=== PATIENT | male | born 1945 | race American Indian/Alaskan Native ===

== ENCOUNTER 2017-02-13 10:20 | Inpatient (IN) | payer MEDICARE ==
[2017-02-13 11:30] LABS: Basophils % (Auto) 0.1 % (0.0-1.8); Eosinophils % (Auto) 1.9 % (0.0-4.3); Hemoglobin 13.3 gm/dl (11.8-15.2); Mean Corpuscular HGB Conc 33 % (32-34); Mean Corpuscular Volume 79 fl (84-94); Platelet Count 294 K/mm3 (140-440); Red Blood Count 5.18 M/mm3 (3.65-5.03); Red Cell Distribution Width 15.1 % (13.2-15.2); White Blood Count 13.3 K/mm3 (4.5-11.0)
[2017-02-13 11:42] LABS: Mean Corpuscular Hemoglobin 26 pg (28-32)
[2017-02-13 11:44] LABS: Albumin 3.5 g/dL (3.9-5); Albumin/Globulin Ratio 0.8 %; Bilirubin,Total 0.2 mg/dL (0.1-1.2); Chloride 91.3 mmol/L (98-107); Potassium 3.5 mmol/L (3.6-5.0); Total Protein 8.1 g/dL (6.3-8.2)
--- NOTE | 2017-02-13 12:36 | Emergency Department Report ---
HPI - General Chief Complaint: Abdominal Pain Time Seen by Provider: 02/13/17 12:18 - HPI HPI: Room 8 The patient is a 69-year-old male presenting with chief complaint of abdominal pain. The patient states he's had a right sided lower abdominal pain constantly for the past 5 days. Patient describes pain as a sore and aching pain. Patient states he is only urinated 3 or 4 times in the past 4 days. The patient states he does not have the urge to urinate. Patient admits to occasional nausea and vomiting. Patient denies dysuria whenever he does urinate. Location: Abdomen Duration: 5 days Quality: Aching/soreness Severity: Moderate Modifying factors: [see above] Context: [see above] Mode of transportation: [not driving] ED Past Medical Hx - Past Medical History Previous Medical History?: No Hx Hypertension: Yes Hx of Cancer: Yes (prostate CA status post surgery) Additional medical history: Hypercholesterolemia. Diabetes mellitus - Surgical History Past Surgical History?: No Additional Surgical History: Prostate surgery - Family History Family history: no significant - Social History Smoking Status: Former Smoker (none 10 years) Substance Use Type: None (denies illicit drug use) - Medications Home Medications: Home Medications Medication Instructions Recorded Confirmed Last Taken Type Ibuprofen 800 mg PO TID PRN 02/13/17 02/13/17 02/13/17 History Lisinopril/Hydrochlorothiazide 1 tab PO QDAY 02/13/17 02/13/17 02/13/17 History [Zestoretic 20-12.5 mg] Simvastatin [Zocor] 20 mg PO DAILY 02/13/17 02/13/17 02/13/17 History Tamsulosin [Flomax] 0.4 mg PO QDAY 02/13/17 02/13/17 02/13/17 History metFORMIN [Glucophage] 500 mg PO BID 02/13/17 02/13/17 02/13/17 History ED Review of Systems ROS: Stated complaint: CHEST AND ABDOMINAL PAIN, LEG PAIN Other details as noted in HPI Gastrointestinal: abdominal pain, nausea, vomiting Genitourinary: other (decreased urination). denies: dysuria Musculoskeletal: denies: back pain Physical Exam - Physical Exam Vital Signs: Vital Signs 02/13/17 02/13/17 02/13/17 10:49 11:51 11:54 Temperature 97.5 F L 98.6 F Pulse Rate 111 H 100 H Respiratory 16 28 H Rate Blood Pressure 85/67 Blood Pressure 100/69 [Left] O2 Sat by Pulse 96 97 Oximetry Physical Exam: GENERAL: The patient is well-developed well-nourished male lying on stretcher not appearing to be in acute distress. [] HEENT: Normocephalic. Atraumatic. Extraocular motions are intact. Patient has moist mucous membranes. NECK: Supple. Trachea midline CHEST/LUNGS: Clear to auscultation. There is no respiratory distress noted. HEART/CARDIOVASCULAR: Regular. There is no tachycardia. There is no gallop rub or murmur. ABDOMEN: Abdomen is soft, with mild discomfort in bilateral lower quadrants greatest in the right. Patient has normal bowel sounds. There is no abdominal distention. SKIN: There is no rash. There is no edema. There is no diaphoresis. NEURO: The patient is awake, alert, and oriented. The patient is cooperative. The patient has normal speech MUSCULOSKELETAL: There is no CVA tenderness. There is no evidence of acute injury. ED Course Vital Signs 02/13/17 02/13/17 02/13/17 10:49 11:51 11:54 Temperature 97.5 F L 98.6 F Pulse Rate 111 H 100 H Respiratory 16 28 H Rate Blood Pressure 85/67 Blood Pressure 100/69 [Left] O2 Sat by Pulse 96 97 Oximetry ED Medical Decision Making - Lab Data Result diagrams: 02/13/17 11:06 02/13/17 11:06 Laboratory Tests 02/13/17 02/13/17 11:06 11:06 WBC 13.3 H RBC 5.18 H Hgb 13.3 Hct 41.0 MCV 79 L MCH 26 L MCHC 33 RDW 15.1 Plt Count 294 Lymph % (Auto) 3.9 L [place] % (Auto) 12.5 H Eos % (Auto) 1.9 Baso % (Auto) 0.1 Lymph # 0.5 L [place] # 1.7 H Eos # 0.3 Baso # 0.0 Seg Neutrophils % 81.6 H Seg Neutrophils # 10.9 H Sodium 140 Potassium 3.5 L Chloride 91.3 L Carbon Dioxide 18 L Anion Gap 34 BUN 91 H Creatinine 7.4 H Estimated GFR 7 BUN/Creatinine Ratio 12 Glucose 142 H Calcium 9.0 Total Bilirubin 0.20 AST 21 ALT 25 Alkaline Phosphatase 110 Total Protein 8.1 Albumin 3.5 L Albumin/Globulin Ratio 0.8 Lipase 21 - EKG Data -: EKG Interpreted by Me EKG shows normal: sinus rhythm Rate: tachycardia (101 bpm ) - EKG Data Interpretation: nonspecific ST-T wave lv (T-wave inversion inferiorly) - Radiology Data Radiology results: report reviewed (CT abdomen and pelvis), image reviewed (CT abdomen and pelvis, chest x-ray) interpreted by me: Chest x-ray-no focal infiltrates, no pneumothorax CT ABDOMEN AND PELVIS WITHOUT CONTRAST INDICATION: Lower abdominal pain, acute renal failure. COMPARISON: None similar. FINDINGS: Noncontrast abdomen and pelvis CT performed. LUNG BASES: Mild bibasilar scarring and bronchiectasis noted in the lower lobes. No effusions. Nonspecific distal esophageal wall prominence/thickening, not excluded for gastroesophageal reflux and/or hiatal hernia, amongst others. ABDOMEN: Please note that sensitivity to detect small visceral lesions is limited due to the absence of intravenous or oral contrast. Small bowel diffusely fluid-filled and dilated with maximum caliber of approximately 4 cm in the left hemiabdomen on axial image 236, series 2, amongst others. Some fluid also noted within the terminal ileum and the proximal ascending colon situated somewhat anteriorly in the right hemiabdomen as on axial image 162, amongst others. Remainder colon decompressed and unremarkable. No pneumatosis or pneumoperitoneum. Grossly unremarkable unenhanced liver, spleen, gallbladder, nonaneurysmal abdominal aorta and IVC. Mild bilateral adrenal adenomatous nodular hyperplasia with approximately 1 cm hypodense adenoma suspected on the left as on axial image 124. Normal pancreatic contour with few small calcifications as in the head inferiorly. No hydronephrosis with approximately 3.8 cm right interpolar cyst. No ascites or significant adenopathy. Small fat containing umbilical hernia with a transverse neck of 5 mm. PELVIS: A fluid filled small bowel loop measures 4.3 cm caliber, axial image 316, series 2. Decompressed rectosigmoid. Numerous brachytherapy seeds. Grossly unremarkable seminal vesicles. Urinary bladder suboptimally distended and assessed. Few pelvic phleboliths. No free fluid or definite significant adenopathy. Small fat containing inguinal hernias measure up to 2 cm on the left. Demineralized bones with few lumbar degenerative changes, including lower lumbar facet arthropathy and disc degeneration with vacuum phenomenon and spurring. CONCLUSION: 1. CT appearance of small bowel obstruction. 2. Various other findings, including chronic changes at the lung bases, right renal cyst, chronic pancreatitis and brachytherapy seeds, amongst others, as above. Thank you for the opportunity to participate in this patient's care. Transcribed By: RS Dictated By: МАРИЯ RICHARDSON MD Electronically Authenticated By: МАРИЯ RICHARDSON MD Signed Date/Time: 02/13/17 1348 DD/ 1327 TD/TT: 02/13/17 134 - Differential Diagnosis acute renal failure, obstructive uropathy, appendicitis Critical care attestation.: If time is entered above; I have spent that time in minutes in the direct care of this critically ill patient, excluding procedure time. ED Disposition Clinical Impression: Acute renal failure, Abdominal pain Disposition: OP ADMIT IP TO THIS HOSP Is pt being admited?: Yes Does the pt Need Aspirin: No Condition: Serious Referrals: PRIMARY CARE, [Primary Care Provider] - 3-5 Days Time of Disposition: 15:19 (hospitalist notified (Dr Mike))
--- NOTE | 2017-02-13 13:13 | Consultation ---
History of Present Illness - Reason for Consult Consult date: 02/13/17 acute renal failure - History of Present Illness Mr Marrero is a 71 y/o M with a PMH of DM, HLD, HTN, Prostate cancer s/p surgery who comes to the [facility] ER with complainst of lower abdominal pain since friday along with decreased urine output. Pt says he has only urinated 3 or 4 times in the past 4 days. He denies nausea, vomiting, SHOB, CP, diarrhea. Pt denies prior history of kidney problems although does say he had surgery on his prostate for his prostate cancer. Pt was found to have distended belly on exam in the ER along with ARF with elevated Cr. No recent baseline Cr is available. Pt has also been on ibuprofen 800 mg TID for the last 1 month for hip pain. ROS: As in HPI otherwise 12 point review of systems -ve PMH: DM, HLD, HTN, Prostate cancer PSH: Prostate cancer s/p surgery FH: NC SH: Denies IVDA Medications and Allergies Allergies Allergy/AdvReac Type Severity Reaction Status Date / Time No Known Allergies Allergy Verified 02/13/17 10:49 Home Medications Medication Instructions Recorded Confirmed Last Taken Type Ibuprofen 800 mg PO TID PRN 02/13/17 02/13/17 02/13/17 History Lisinopril/Hydrochlorothiazide 1 tab PO QDAY 02/13/17 02/13/17 02/13/17 History [Zestoretic 20-12.5 mg] Simvastatin [Zocor] 20 mg PO DAILY 02/13/17 02/13/17 02/13/17 History Tamsulosin [Flomax] 0.4 mg PO QDAY 02/13/17 02/13/17 02/13/17 History metFORMIN [Glucophage] 500 mg PO BID 02/13/17 02/13/17 02/13/17 History Exam - Vital Signs Vital signs: Vital Signs Temp Pulse Resp BP Pulse Ox 97.5 F L 111 H 16 85/67 96 02/13/17 10:49 02/13/17 10:49 02/13/17 10:49 02/13/17 10:49 02/13/17 10:49 - Physical Exam Narrative exam: GE:AAOX3 HEENT: PERRLA Neck: No JVD CVS: RRR Chest: CTAB Abd: Distended, Mild TTP Ext: No cce Neuro: AAOX3 Results - Lab Results 02/13/17 11:06 02/13/17 11:06 Most recent lab results Calcium 9.0 mg/dL (8.4-10.2) 02/13/17 11:06 Assessment and Plan Acute Kidney injury likely ATN from NSAIDs, possible post renal: -Unknown CKD as no BL Cr available -Has been on ibuprofen 800 mg TID for the last 1 month for hip pain -Possibly may have ATN from it -Check Urine studies, CK, BNP, CXR -Does have h/o prostate cancer s/p surgery, he is unsure if it was TURP or something else. CT abdomen ordered to r/o post renal, if found to have hydronephrosis on CT, will need Urology consult. -[place] -Strict I/O -Renally dose all meds -Avoid nephrotoxic meds -Hold HCTZ/Lisinopril Essential hypertension: -Titrate BP meds to keep SBP <130 -Avoid [place]ito inh/ARBs including lisinopril Metabolic acidosis: -Start NaHCO3 tabs Leukocytosis: -Infectious w/u per primary Diabetes mellitus type 2 on metformin at home: -Hold home metformin -Per primary Hyperlipidemia, chronic: -Statin History of prostate cancer s/p surgery: -Can continue home flomax With this note, I want to thank Dr Castro for allowing me to participate in the care of Mr Strauss, i will continue to follow him closely with you. Thank you for the consult. Jovani Fonseca MD Nephrology, Hypertension, Dialysis, Transplantation Phone no: [phone]
--- NOTE | 2017-02-13 13:54 | Cat Scan Report ---
CT ABDOMEN AND PELVIS WITHOUT CONTRAST INDICATION: Lower abdominal pain, acute renal failure. COMPARISON: None similar. FINDINGS: Noncontrast abdomen and pelvis CT performed. LUNG BASES: Mild bibasilar scarring and bronchiectasis noted in the lower lobes. No effusions. Nonspecific distal esophageal wall prominence/thickening, not excluded for gastroesophageal reflux and/or hiatal hernia, amongst others. ABDOMEN: Please note that sensitivity to detect small visceral lesions is limited due to the absence of intravenous or oral contrast. Small bowel diffusely fluid-filled and dilated with maximum caliber of approximately 4 cm in the left hemiabdomen on axial image 236, series 2, amongst others. Some fluid also noted within the terminal ileum and the proximal ascending colon situated somewhat anteriorly in the right hemiabdomen as on axial image 162, amongst others. Remainder colon decompressed and unremarkable. No pneumatosis or pneumoperitoneum. Grossly unremarkable unenhanced liver, spleen, gallbladder, nonaneurysmal abdominal aorta and IVC. Mild bilateral adrenal adenomatous nodular hyperplasia with approximately 1 cm hypodense adenoma suspected on the left as on axial image 124. Normal pancreatic contour with few small calcifications as in the head inferiorly. No hydronephrosis with approximately 3.8 cm right interpolar cyst. No ascites or significant adenopathy. Small fat containing umbilical hernia with a transverse neck of 5 mm. PELVIS: A fluid filled small bowel loop measures 4.3 cm caliber, axial image 316, series 2. Decompressed rectosigmoid. Numerous brachytherapy seeds. Grossly unremarkable seminal vesicles. Urinary bladder suboptimally distended and assessed. Few pelvic phleboliths. No free fluid or definite significant adenopathy. Small fat containing inguinal hernias measure up to 2 cm on the left. Demineralized bones with few lumbar degenerative changes, including lower lumbar facet arthropathy and disc degeneration with vacuum phenomenon and spurring. CONCLUSION: 1. CT appearance of small bowel obstruction. 2. Various other findings, including chronic changes at the lung bases, right renal cyst, chronic pancreatitis and brachytherapy seeds, amongst others, as above. Thank you for the opportunity to participate in this patient's care.
--- NOTE | 2017-02-13 15:11 | XRay Report ---
PORTABLE CHEST INDICATION: Assess fluid status. COMPARISON: CT from earlier today. FINDINGS: Portable, frontal chest radiograph demonstrates suboptimal inspiration with mild exaggerated cardiomediastinal silhouette. Mild bibasilar densities represent chronic changes/scarring. No significant pleural effusions or cephalization. EKG leads. Few bony degenerative changes. CONCLUSION: No acute chest process with bibasilar scarring, as described. Please also correlate clinically and with more remote chest imaging, if available. Thank you for the opportunity to participate in this patient's care.
[2017-02-13] MEDS: SODIUM BICARBONATE PO SCH ×2 (15:13→22:59)
[2017-02-13 15:59] LABS: Bacteria,Urine 1+ /HPF (Negative); Bilirubin,Urine NEG (Negative); Blood,Urine SM (Negative); Ketones,Urine NEG (Negative); Leukocyte Esterase,Urine NEG (Negative); Mucus,Urine FEW /HPF; Nitrite,Urine NEG (Negative); Urobilinogen,Urine < 2.0 mg/dL (<2.0)
--- NOTE | 2017-02-13 17:01 | History and Physical Report ---
History of Present Illness Chief complaint: My stomach hurts,but it feels better now History of present illness: 71 YO Male with HTN, CaP, HLD, DM presents to ED for evaluation. Pt states that he has experienced pain in his abdomen for the past 5 days with persistent symptoms over that same time frame. Pt stats that pain is 5/10, aching, no exacerbating or alleviating factors. Pt acknowledges flatus, and bowel movement , but states that he has urinated only 3 times in the past 4 days and that he does not have the urge to urinate. Pt acknowledges 2 episodes of nausea and vomiting over the past 12 hours. Pt denies fever, shaking chills, CP, palpitations, hematuria, dysuria, productive cough, or recent ill contacts. Pt seen and evaluted in the ED and found to have acute renal failure with a serum creatnine of 7.4, as well as evidence of sepsis. Nephrology consulted in ED, and patient initiated on sepsis protocol. CT Abdomen/pelvis done to evaluate for intraabdominal source of sepsis versus urinary obstruction, but patient found to have partial bowel obstruction. Past History Past Medical History: cancer, diabetes, hypertension, hyperlipidemia Past Surgical History: hernia repair Social history: single. denies: smoking, alcohol abuse, prescription drug abuse Family history: diabetes, hypertension Medications and Allergies Allergies Allergy/AdvReac Type Severity Reaction Status Date / Time No Known Allergies Allergy Verified 02/13/17 10:49 Home Medications Medication Instructions Recorded Confirmed Last Taken Type Ibuprofen 800 mg PO TID PRN 02/13/17 02/13/17 02/13/17 History Lisinopril/Hydrochlorothiazide 1 tab PO QDAY 02/13/17 02/13/17 02/13/17 History [Zestoretic 20-12.5 mg] Simvastatin [Zocor] 20 mg PO DAILY 02/13/17 02/13/17 02/13/17 History Tamsulosin [Flomax] 0.4 mg PO QDAY 02/13/17 02/13/17 02/13/17 History metFORMIN [Glucophage] 500 mg PO BID 02/13/17 02/13/17 02/13/17 History Active Meds: Active Medications Sodium Bicarbonate (Sodium Bicarbonate) 650 mg PO TID [facility] Last Admin: 02/13/17 15:13 Dose: 650 mg Review of Systems Constitutional: no weight loss, no weight gain, no fever, no chills Ears, nose, mouth and throat: no ear pain, no ear discharge, no tinnitis, no decreased hearing, no nose pain, no nasal congestion Cardiovascular: no chest pain, no orthopnea, no palpitations, no edema, no syncope, no lightheadedness Respiratory: no cough, no cough with sputum, no excessive sputum Gastrointestinal: abdominal pain, nausea, vomiting, no diarrhea, no BRBPR, no melena, no hematochezia Genitourinary Male: no dysuria, no hematuria, no flank pain Rectal: no pain, no incontinence, no bleeding Musculoskeletal: no neck pain, no shooting arm pain, no arm numbness/tingling, no low back pain, no shooting leg pain, no leg numbness/tingling, no redness of joints Integumentary: no rash, no pruritis, no redness, no sores, no wounds, no jaundice, no boils Neurological: no transient paralysis, no paralysis, no weakness, no parathesias , no numbness, no tingling, no seizures, no syncope Psychiatric: no anxiety, no memory loss, no change in sleep habits, no sleep disturbances, no insomnia, no hypersomnia, no change in appetite, no change in libido Endocrine: no cold intolerance, no heat intolerance, no polyphagia, no excessive thirst, no polydipsia, no polyuria, no nocturia, no excessive sweating Hematologic/Lymphatic: no easy bruising, no easy bleeding Allergic/Immunologic: no urticaria, no allergic rhinitis, no wheezing Exam - Constitutional Vitals: Temp Pulse Resp BP Pulse Ox 98.6 F 100 H 28 H 100/69 97 02/13/17 11:54 02/13/17 11:51 02/13/17 11:51 02/13/17 11:54 02/13/17 11:51 General appearance: Present: mild distress - EENT Eyes: Present: PERRL ENT: hearing intact, clear oral mucosa - Neck Neck: Present: supple, normal ROM - Respiratory Respiratory effort: normal Respiratory: bilateral: CTA - Cardiovascular Heart Sounds: Present: S1 & S2. Absent: rub, click - Extremities Extremities: pulses symmetrical, No edema Peripheral Pulses: abnormal (Capillary refill above 3 seconds) - Abdominal General gastrointestinal: Present: soft, non-tender, distended Male genitourinary: Present: normal - Integumentary Integumentary: Present: clear, warm, dry - Musculoskeletal Musculoskeletal: generalized weakness - Psychiatric Psychiatric: appropriate mood/affect, intact judgment & insight - Neurologic Neurologic: CNII-XII intact, moves all extremities Results - Labs CBC & Chem 7: 02/13/17 11:06 02/13/17 11:06 Labs: Abnormal lab results 02/13/17 02/13/17 02/13/17 Range/Units 11:06 11:06 11:06 WBC 13.3 H (4.5-11.0) K/mm3 RBC 5.18 H (3.65-5.03) M/mm3 MCV 79 L (84-94) fl MCH 26 L (28-32) pg Lymph % (Auto) 3.9 L (13.4-35.0) % [place] % (Auto) 12.5 H (0.0-7.3) % Lymph # 0.5 L (1.2-5.4) K/mm3 [place] # 1.7 H (0.0-0.8) K/mm3 Seg Neutrophils % 81.6 H (40.0-70.0) % Seg Neutrophils # 10.9 H (1.8-7.7) K/mm3 Potassium 3.5 L (3.6-5.0) mmol/L Chloride 91.3 L (98-107) mmol/L Carbon Dioxide 18 L (22-30) mmol/L BUN 91 H (9-20) mg/dL Creatinine 7.4 H (0.8-1.5) mg/dL Glucose 142 H (75-100) mg/dL Total Creatine Kinase 198 H (55-170) units/L Albumin 3.5 L (3.9-5) g/dL Urine WBC (Auto) (0.0-6.0) /HPF 02/13/17 Range/Units 15:05 WBC (4.5-11.0) K/mm3 RBC (3.65-5.03) M/mm3 MCV (84-94) fl MCH (28-32) pg Lymph % (Auto) (13.4-35.0) % [place] % (Auto) (0.0-7.3) % Lymph # (1.2-5.4) K/mm3 [place] # (0.0-0.8) K/mm3 Seg Neutrophils % (40.0-70.0) % Seg Neutrophils # (1.8-7.7) K/mm3 Potassium (3.6-5.0) mmol/L Chloride (98-107) mmol/L Carbon Dioxide (22-30) mmol/L BUN (9-20) mg/dL Creatinine (0.8-1.5) mg/dL Glucose (75-100) mg/dL Total Creatine Kinase (55-170) units/L Albumin (3.9-5) g/dL Urine WBC (Auto) 26.0 H (0.0-6.0) /HPF Assessment and Plan - Patient Problems (1) Sepsis Current Visit: Yes Status: Acute Qualifiers: Sepsis type: sepsis due to unspecified organism Qualified Code(s): A41.9 - Sepsis, unspecified organism Plan to address problem: IV abx, serial lactic acid, monitor uop q shift, blood cultures, urinalysis, (2) HLD (hyperlipidemia) Current Visit: Yes Status: Acute Plan to address problem: lipid panel, statin therapy (3) Diabetes Current Visit: Yes Status: Acute Plan to address problem: ADA diet, insulin, accu check (4) Acute renal failure Current Visit: Yes Status: Acute Plan to address problem: Nephrology consulted, monitor uop q shift, urine electrolytes, supportive care. (5) SBO (small bowel obstruction) Current Visit: Yes Status: Acute Plan to address problem: Bowel rest, serial abdominal exam, supportive care, abdominal x ray in AM. (6) DVT prophylaxis Current Visit: Yes Status: Acute
[2017-02-13] MEDS ORDERED: DULCOLAX PR PRN (17:03)
[2017-02-13] MEDS ORDERED: D50W (25GM) Syringe IV PRN (17:03)
[2017-02-13] MEDS ORDERED: MILK OF MAGNESIA PO PRN (17:03)
[2017-02-13] MEDS ORDERED: TYLENOL PO PRN (17:03)
[2017-02-13] MEDS ORDERED: VANCOMYCIN VIAL IV ONE (19:13)
[2017-02-13] MEDS ORDERED: VANCOMYCIN PHARMACY TO DOSE IV SCH (20:00)
[2017-02-13] MEDS ORDERED: VANCOMYCIN 2,000 MG in NACL 0.9% 500 ML 500 ML IV ONE (20:00)
[2017-02-13] MEDS ORDERED: ZOSYN/NS 4.5GM/100ML 4.5 GM/100 ML VIAL IV SCH (22:00)
[2017-02-13] MEDS ORDERED: SODIUM BICARBONATE 150 MEQ in D5W 1,000 ML IV SCH (22:00)
[2017-02-13] MEDS ORDERED: NACL 0.9% 1000 ML IV ONE (23:00)
[2017-02-13] MEDS: NACL 0.9% 1000 ML IV ONE ×2 (23:02→23:13)
[2017-02-13] MEDS: ZOSYN/NS 2.25 GM/50ML 2.25 GM/50 ML BAG IV SCH (23:04)
[2017-02-14] MEDS: ZOSYN/NS 2.25 GM/50ML 2.25 GM/50 ML BAG IV SCH ×2 (06:28→17:29)
[2017-02-14] MEDS: ZOFRAN IV PRN ×2 (06:32→12:41)
[2017-02-14] MEDS: SODIUM BICARBONATE PO SCH (09:43)
--- NOTE | 2017-02-14 09:46 | Progress Note ---
<BERTIN HERNANDES - Last Filed: 02/14/17 16:41> Assessment and Plan Assessment and plan: 71 YO Man with HTN, CaP, HLD, DM presents to ED for evaluation. Pt states that he has experienced pain in his abdomen for the past 5 days with persistent symptoms over that same time frame. Pt stats that pain is 5/10, aching, no exacerbating or alleviating factors. Pt acknowledges flatus, and bowel movement , but states that he has urinated only 3 times in the past 4 days and that he does not have the urge to urinate. Pt acknowledges 2 episodes of nausea and vomiting over the past 12 hours. Pt denies fever, shaking chills, CP, palpitations, hematuria, dysuria, productive cough, or recent ill contacts. Pt seen and evaluted in the ED and found to have acute renal failure with a serum creatnine of 7.4, as well as evidence of sepsis. Nephrology consulted in ED, and patient initiated on sepsis protocol. 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 -CT abdomen -ve for hydronephrosis. -BUN/Cr trending up. Hydrate with bicarb drip at 125 mls/hr. -Boykin ordered. Not put in yesterday. -Strict I/O -Renally dose all meds -Avoid nephrotoxic meds -Hold HCTZ/Lisinopril SBO (small bowel obstruction) Bowel rest Gen Surg Dr Holt following Hx of Prostate Cancer Continue flomax DVT prophylaxis Sub Q Heparin, SCDs History Interval history: Patient is alert and oriented, resting comfortably in bed. He denies shortness of breath chest pain vomiting. Patient states that abdominal pain is 5-6 out of 10 with palpation but he is comfortable without palpation. Patient also complains of nausea which is relieved by medication. Hospitalist Physical - Constitutional Vitals: Temp Pulse Resp BP Pulse Ox 98.2 F 99 H 20 98/69 91 02/14/17 07:55 02/14/17 07:55 02/14/17 07:55 02/14/17 07:55 02/14/17 07:55 General appearance: Present: no acute distress - EENT Eyes: Present: PERRL, EOM intact ENT: hearing intact, clear oral mucosa - Neck Neck: Present: supple, rigidity - Respiratory Respiratory effort: normal Respiratory: bilateral: CTA - Cardiovascular Rhythm: regular Heart Sounds: Present: S1 & S2 - Extremities Extremities: no ischemia, No edema Peripheral Pulses: within normal limits - Abdominal General gastrointestinal: soft Localized gastrointestinal: tender: RUQ, LUQ - Integumentary Integumentary: Present: clear, warm, dry - Psychiatric Psychiatric: appropriate mood/affect, intact judgment & insight - Neurologic Neurologic: CNII-XII intact, moves all extremities - Allied Health Allied health notes reviewed: nursing Results - Labs CBC & Chem 7: 02/14/17 12:28 02/14/17 12:28 Labs: Laboratory Last Values WBC 13.3 K/mm3 (4.5-11.0) H 02/13/17 11:06 RBC 5.18 M/mm3 (3.65-5.03) H 02/13/17 11:06 Hgb 13.3 gm/dl (11.8-15.2) 02/13/17 11:06 Hct 41.0 % (35.5-45.6) 02/13/17 11:06 MCV 79 fl (84-94) L 02/13/17 11:06 MCH 26 pg (28-32) L 02/13/17 11:06 MCHC 33 % (32-34) 02/13/17 11:06 RDW 15.1 % (13.2-15.2) 02/13/17 11:06 Plt Count 294 K/mm3 (140-440) 02/13/17 11:06 Lymph % (Auto) 3.9 % (13.4-35.0) L 02/13/17 11:06 Mcdowell % (Auto) 12.5 % (0.0-7.3) H 02/13/17 11:06 Eos % (Auto) 1.9 % (0.0-4.3) 02/13/17 11:06 Baso % (Auto) 0.1 % (0.0-1.8) 02/13/17 11:06 Lymph # 0.5 K/mm3 (1.2-5.4) L 02/13/17 11:06 Mcdowell # 1.7 K/mm3 (0.0-0.8) H 02/13/17 11:06 Eos # 0.3 K/mm3 (0.0-0.4) 02/13/17 11:06 Baso # 0.0 K/mm3 (0.0-0.1) 02/13/17 11:06 Seg Neutrophils % 81.6 % (40.0-70.0) H 02/13/17 11:06 Seg Neutrophils # 10.9 K/mm3 (1.8-7.7) H 02/13/17 11:06 Sodium 140 mmol/L (137-145) 02/13/17 11:06 Potassium 3.5 mmol/L (3.6-5.0) L 02/13/17 11:06 Chloride 91.3 mmol/L (98-107) L 02/13/17 11:06 Carbon Dioxide 18 mmol/L (22-30) L 02/13/17 11:06 Anion Gap 34 mmol/L 02/13/17 11:06 BUN 91 mg/dL (9-20) H 02/13/17 11:06 Creatinine 7.4 mg/dL (0.8-1.5) H 02/13/17 11:06 Estimated GFR 7 ml/min 02/13/17 11:06 BUN/Creatinine Ratio 12 % 02/13/17 11:06 Glucose 142 mg/dL (75-100) H 02/13/17 11:06 POC Glucose 189 (70-105) H 02/14/17 05:59 Lactic Acid 2.50 mmol/L (0.7-2.0) H* 02/14/17 01:05 Calcium 9.0 mg/dL (8.4-10.2) 02/13/17 11:06 Total Bilirubin 0.20 mg/dL (0.1-1.2) 02/13/17 11:06 AST 21 units/L (5-40) 02/13/17 11:06 ALT 25 units/L (7-56) 02/13/17 11:06 Alkaline Phosphatase 110 units/L (35-129) 02/13/17 11:06 Total Creatine Kinase 198 units/L (55-170) H 02/13/17 11:06 NT-Pro-B Natriuret Pep 194.8 pg/mL (0-900) 02/13/17 11:06 Total Protein 8.1 g/dL (6.3-8.2) 02/13/17 11:06 Albumin 3.5 g/dL (3.9-5) L 02/13/17 11:06 Albumin/Globulin Ratio 0.8 % 02/13/17 11:06 Lipase 21 units/L (13-60) 02/13/17 11:06 Urine Color Yellow (Yellow) 02/13/17 15:05 Urine Turbidity Clear (Clear) 02/13/17 15:05 Urine pH 5.0 (5.0-7.0) 02/13/17 15:05 Ur Specific Estill 1.020 (1.003-1.030) 02/13/17 15:05 Urine Protein 100 mg/dl mg/dL (Negative) 02/13/17 15:05 Urine Glucose (UA) 50 mg/dL (Negative) 02/13/17 15:05 Urine Ketones Neg mg/dL (Negative) 02/13/17 15:05 Urine Blood Sm (Negative) 02/13/17 15:05 Urine Nitrite Neg (Negative) 02/13/17 15:05 Urine Bilirubin Neg (Negative) 02/13/17 15:05 Urine Urobilinogen < 2.0 mg/dL (<2.0) 02/13/17 15:05 Ur Leukocyte Esterase Neg (Negative) 02/13/17 15:05 Urine WBC (Auto) 26.0 /HPF (0.0-6.0) H 02/13/17 15:05 Urine RBC (Auto) 5.0 /HPF (0.0-6.0) 02/13/17 15:05 U Epithel Cells (Auto) 1.0 /HPF (0-13.0) 02/13/17 15:05 Urine Bacteria (Auto) 1+ /HPF (Negative) 02/13/17 15:05 Hyaline Casts 3 /LPF 02/13/17 15:05 Urine Mucus Few /HPF 02/13/17 15:05 Urine Eosinophils None seen (None Seen) 02/13/17 15:05 Urine Creatinine 401.9 mg/dL (0.1-20.0) H 02/13/17 15:05 Protein/Creatinin Ratio 0.22 02/13/17 15:05 Urine Sodium 34 mmol/L 02/13/17 15:05 Urine Urea Nitrogen 181 02/13/17 15:05 Urine Total Protein 89 mg/dL (5-11.8) H 02/13/17 15:05 <BOXCORWIN R - Last Filed: 02/14/17 16:51> Assessment and Plan Assessment and plan: I saw and evaluated the patient. I agree with the findings and the plan of care as documented in the PA note Hospitalist Physical - Constitutional Vitals: Temp Pulse Resp BP Pulse Ox 98.0 F 99 H 20 104/68 91 02/14/17 14:57 02/14/17 07:55 02/14/17 14:57 02/14/17 14:57 02/14/17 07:55 Results - Labs CBC & Chem 7: 02/14/17 12:28 02/14/17 12:28 Labs: Laboratory Last Values WBC 16.4 K/mm3 (4.5-11.0) H 02/14/17 12:28 RBC 5.27 M/mm3 (3.65-5.03) H 02/14/17 12:28 Hgb 12.9 gm/dl (11.8-15.2) 02/14/17 12:28 Hct 41.0 % (35.5-45.6) 02/14/17 12:28 MCV 78 fl (84-94) L 02/14/17 12:28 MCH 24 pg (28-32) L 02/14/17 12:28 MCHC 31 % (32-34) L 02/14/17 12:28 RDW 15.0 % (13.2-15.2) 02/14/17 12:28 Plt Count 316 K/mm3 (140-440) 02/14/17 12:28 Lymph % (Auto) 5.6 % (13.4-35.0) L 02/14/17 12:28 Mcdowell % (Auto) 6.2 % (0.0-7.3) 02/14/17 12:28 Eos % (Auto) 0.2 % (0.0-4.3) 02/14/17 12:28 Baso % (Auto) 0.2 % (0.0-1.8) 02/14/17 12:28 Lymph # 0.9 K/mm3 (1.2-5.4) L 02/14/17 12:28 Mcdowell # 1.0 K/mm3 (0.0-0.8) H 02/14/17 12:28 Eos # 0.0 K/mm3 (0.0-0.4) 02/14/17 12:28 Baso # 0.0 K/mm3 (0.0-0.1) 02/14/17 12:28 Seg Neutrophils % 87.8 % (40.0-70.0) H 02/14/17 12:28 Seg Neutrophils # 14.4 K/mm3 (1.8-7.7) H 02/14/17 12:28 Sodium 140 mmol/L (137-145) 02/14/17 12:28 Potassium 3.7 mmol/L (3.6-5.0) 02/14/17 12:28 Chloride 90.6 mmol/L (98-107) L 02/14/17 12:28 Carbon Dioxide 16 mmol/L (22-30) L 02/14/17 12:28 Anion Gap 37 mmol/L 02/14/17 12:28 BUN 120 mg/dL (9-20) H 02/14/17 12:28 Creatinine 8.6 mg/dL (0.8-1.5) H 02/14/17 12:28 Estimated GFR 7 ml/min 02/14/17 12:28 BUN/Creatinine Ratio 14 % 02/14/17 12:28 Glucose 177 mg/dL (75-100) H 02/14/17 12:28 POC Glucose 188 (70-105) H 02/14/17 16:13 Lactic Acid 2.50 mmol/L (0.7-2.0) H* 02/14/17 01:05 Calcium 7.8 mg/dL (8.4-10.2) L 02/14/17 12:28 Phosphorus 6.00 mg/dL (2.5-4.5) H 02/14/17 12:28 Magnesium 2.20 mg/dL (1.7-2.3) 02/14/17 12:28 Total Bilirubin 0.20 mg/dL (0.1-1.2) 02/13/17 11:06 AST 21 units/L (5-40) 02/13/17 11:06 ALT 25 units/L (7-56) 02/13/17 11:06 Alkaline Phosphatase 110 units/L (35-129) 02/13/17 11:06 Total Creatine Kinase 198 units/L (55-170) H 02/13/17 11:06 NT-Pro-B Natriuret Pep 194.8 pg/mL (0-900) 02/13/17 11:06 Total Protein 8.1 g/dL (6.3-8.2) 02/13/17 11:06 Albumin 3.5 g/dL (3.9-5) L 02/13/17 11:06 Albumin/Globulin Ratio 0.8 % 02/13/17 11:06 Lipase 21 units/L (13-60) 02/13/17 11:06 Urine Color Yellow (Yellow) 02/13/17 15:05 Urine Turbidity Clear (Clear) 02/13/17 15:05 Urine pH 5.0 (5.0-7.0) 02/13/17 15:05 Ur Specific Estill 1.020 (1.003-1.030) 02/13/17 15:05 Urine Protein 100 mg/dl mg/dL (Negative) 02/13/17 15:05 Urine Glucose (UA) 50 mg/dL (Negative) 02/13/17 15:05 Urine Ketones Neg mg/dL (Negative) 02/13/17 15:05 Urine Blood Sm (Negative) 02/13/17 15:05 Urine Nitrite Neg (Negative) 02/13/17 15:05 Urine Bilirubin Neg (Negative) 02/13/17 15:05 Urine Urobilinogen < 2.0 mg/dL (<2.0) 02/13/17 15:05 Ur Leukocyte Esterase Neg (Negative) 02/13/17 15:05 Urine WBC (Auto) 26.0 /HPF (0.0-6.0) H 02/13/17 15:05 Urine RBC (Auto) 5.0 /HPF (0.0-6.0) 02/13/17 15:05 U Epithel Cells (Auto) 1.0 /HPF (0-13.0) 02/13/17 15:05 Urine Bacteria (Auto) 1+ /HPF (Negative) 02/13/17 15:05 Hyaline Casts 3 /LPF 02/13/17 15:05 Urine Mucus Few /HPF 02/13/17 15:05 Urine Eosinophils None seen (None Seen) 02/13/17 15:05 Urine Creatinine 401.9 mg/dL (0.1-20.0) H 02/13/17 15:05 Protein/Creatinin Ratio 0.22 02/13/17 15:05 Urine Sodium 34 mmol/L 02/13/17 15:05 Urine Urea Nitrogen 181 02/13/17 15:05 Urine Total Protein 89 mg/dL (5-11.8) H 02/13/17 15:05
--- NOTE | 2017-02-14 10:30 | Progress Note ---
Assessment and Plan Acute Kidney injury likely ATN from NSAIDs/Prerenal -Unknown CKD as no BL Cr available -Has been on ibuprofen 800 mg TID for the last 1 month for hip pain -Possibly may have ATN from it. -CT abdomen -ve for hydronephrosis. -BUN/Cr trending up. Hydrate with bicarb drip at 125 mls/hr. -Vicente ordered. Not put in yesterday. -Strict I/O -Renally dose all meds -Avoid nephrotoxic meds -Hold HCTZ/Lisinopril Small bowel obstruction: -On CT. GS Dr Mazariegos on board. Per her. Essential hypertension: -Hold all BP meds as BP low. -Avoid Benito inh/ARBs including lisinopril Metabolic acidosis: -Bicarb drip at 125 mls/hr. Sepsis possibly due to UTI: Leukocytosis: -On Abx, per primary -Urine Cx ordered -Blood Cx drawn. Diabetes mellitus type 2 on metformin at home: -Hold home metformin -Per primary Hyperlipidemia, chronic: -Statin when safe to eat. History of prostate cancer s/p surgery: -Can continue home flomax Plan d/w bedside RN and Dr Mazariegos. Jovani Fonseca MD Nephrology, Hypertension, Dialysis, Transplantation Phone no: [phone] Subjective Date of service: 02/14/17 Interval history: Found to have SBO on CT. No vicente yet. Objective - Exam Narrative Exam: GE:AAOX3 HEENT: PERRLA Neck: No JVD CVS: RRR Chest: CTAB Abd: Distended, Mild TTP Ext: No cce Neuro: AAOX3 - Vital Signs Vital signs: Vital Signs - 12hr 02/14/17 02/14/17 01:37 07:55 Temperature 97.8 F 98.2 F Pulse Rate 59 L 99 H Respiratory 18 20 Rate Blood Pressure 105/69 98/69 O2 Sat by Pulse 95 91 Oximetry - Lab 02/14/17 12:28 02/14/17 12:28 Most recent lab results Calcium 9.0 mg/dL (8.4-10.2) 02/13/17 11:06 Urine Creatinine 401.9 mg/dL (0.1-20.0) H 02/13/17 15:05 Urine Sodium 34 mmol/L 02/13/17 15:05 Urine Total Protein 89 mg/dL (5-11.8) H 02/13/17 15:05
[2017-02-14] MEDS ORDERED: NACL 0.9% 1000 ML 1,000 ML IV ONE (11:30)
[2017-02-14] MEDS ORDERED: ZOFRAN IV PRN (12:45)
[2017-02-14 12:54] LABS: Basophils % (Auto) 0.2 % (0.0-1.8); Eosinophils % (Auto) 0.2 % (0.0-4.3); Hemoglobin 12.9 gm/dl (11.8-15.2); Mean Corpuscular HGB Conc 31 % (32-34); Mean Corpuscular Volume 78 fl (84-94); Platelet Count 316 K/mm3 (140-440); Red Blood Count 5.27 M/mm3 (3.65-5.03); White Blood Count 16.4 K/mm3 (4.5-11.0)
[2017-02-14] MEDS ORDERED: CHLORASEPTIC MM PRN (12:55)
[2017-02-14 12:56] LABS: Calcium 7.8 mg/dL (8.4-10.2); Chloride 90.6 mmol/L (98-107); Mean Corpuscular Hemoglobin 24 pg (28-32); Potassium 3.7 mmol/L (3.6-5.0)
[2017-02-14 12:57] LABS: Magnesium 2.2 mg/dL (1.7-2.3)
[2017-02-14] MEDS ORDERED: NACL 0.9% 1000 ML 1,000 ML IV SCH (13:00)
--- NOTE | 2017-02-14 13:08 | Consultation ---
History of Present Illness Consult date: 02/14/17 Reason for consult: abdominal pain Chief complaint: Abdominal pain, nausea, vomiting - History of present illness History of present illness: 71-year-old male with past medical history of hypertension, diabetes who presents to the hospital with complaints of right-sided lower abdominal pain for the past several days. Patient states that he was evaluated at an outside hospital and he was discharged. The patient states that his abdominal pain is now better. It was nonradiating and located in the right lower quadrant. He has been having multiple episodes of nausea and emesis for the past 2 days. He states his last bowel movement was 5 days ago and he has not been passing flatus since then. He is never had a problem like this before. He denies fevers, chills, chest pain, shortness of breath. He states he has not had any sick contacts or had any unusual food. Has a history of prostate cancer status post surgery and radiation. Past History Past Medical History: cancer (prostate cancer s/p radiation), diabetes, hypertension, hyperlipidemia Past Surgical History: hernia repair (right inguinal), Other (prostate surgery) Social history: single. denies: smoking, alcohol abuse, prescription drug abuse Family history: diabetes, hypertension Medications and Allergies Allergies Allergy/AdvReac Type Severity Reaction Status Date / Time No Known Allergies Allergy Verified 02/13/17 10:49 Home Medications Medication Instructions Recorded Confirmed Last Taken Type Ibuprofen 800 mg PO TID PRN 02/13/17 02/13/17 02/13/17 History Lisinopril/Hydrochlorothiazide 1 tab PO QDAY 02/13/17 02/13/17 02/13/17 History [Zestoretic 20-12.5 mg] Simvastatin [Zocor] 20 mg PO DAILY 02/13/17 02/13/17 02/13/17 History Tamsulosin [Flomax] 0.4 mg PO QDAY 02/13/17 02/13/17 02/13/17 History metFORMIN [Glucophage] 500 mg PO BID 02/13/17 02/13/17 02/13/17 History Active Meds: Active Medications Acetaminophen (Tylenol) 650 mg PO Q4H PRN PRN Reason: Pain MILD(1-3)/Fever >100.5/GAMBLE Bisacodyl (Dulcolax) 10 mg [place] QDAY PRN PRN Reason: Constipation unrelieved by MOM Dextrose (D50w (25gm) Syringe) 50 ml IV PRN PRN PRN Reason: Hypoglycemia Piperacillin Sod/Tazobactam Sod (Zosyn/Ns 2.25 Gm/50ml) 2.25 gm in 50 mls @ 100 mls/hr IV Q8HR KEVIN Last Admin: 02/14/17 06:28 Dose: 100 mls/hr Sodium Chloride (Nacl 0.9% 1000 Ml) 1,000 mls @ 125 mls/hr IV DIRECT KEVIN Sodium Bicarbonate 150 meq/ (Dextrose) 1,150 mls @ 42 mls/hr IV DIRECT KEVIN Ondansetron HCl (Zofran) 4 mg IV Q4H PRN PRN Reason: N/V unrelieved by Reglan Phenol (Chloraseptic) 1 spray MM PRN PRN PRN Reason: Sore Throat Vancomycin HCl (Vancomycin Pharmacy To Dose) 1 each IV PKCONSULT KEVIN PRN Reason: Protocol Review of Systems All systems: negative (see hpi) Exam Vital Signs Temp Pulse Resp BP Pulse Ox 97.5 F L 111 H 16 85/67 96 02/13/17 10:49 02/13/17 10:49 02/13/17 10:49 02/13/17 10:49 02/13/17 10:49 Narrative exam: Gen.: Awake, alert, oriented 3. No apparent distress ENT: NG tube in place with brown gastric contents in canister CV: S1, S2 positive Respiratory: No audible wheezes Abdomen: soft, distended, mild discomfort on palpation in the lower abdomen. No rebound, rigidity, guarding. Right groin surgical scar. There are hypoactive bowel sounds Extremity: No clubbing, cyanosis, edema Results - Labs 02/14/17 12:28 02/14/17 12:28 Abnormal lab results 02/13/17 02/13/17 02/13/17 Range/Units 11:06 15:05 15:05 WBC (4.5-11.0) K/mm3 RBC (3.65-5.03) M/mm3 MCV (84-94) fl MCH (28-32) pg MCHC (32-34) % Lymph % (Auto) (13.4-35.0) % Lymph # (1.2-5.4) K/mm3 Teller # (0.0-0.8) K/mm3 Seg Neutrophils % (40.0-70.0) % Seg Neutrophils # (1.8-7.7) K/mm3 Chloride (98-107) mmol/L Carbon Dioxide (22-30) mmol/L Creatinine (0.8-1.5) mg/dL Glucose (75-100) mg/dL POC Glucose (70-105) Lactic Acid (0.7-2.0) mmol/L Calcium (8.4-10.2) mg/dL Phosphorus (2.5-4.5) mg/dL Total Creatine Kinase 198 H (55-170) units/L Urine WBC (Auto) 26.0 H (0.0-6.0) /HPF Urine Creatinine 401.9 H (0.1-20.0) mg/dL Urine Total Protein 89 H (5-11.8) mg/dL 02/13/17 02/14/17 02/14/17 Range/Units 22:44 01:05 05:59 WBC (4.5-11.0) K/mm3 RBC (3.65-5.03) M/mm3 MCV (84-94) fl MCH (28-32) pg MCHC (32-34) % Lymph % (Auto) (13.4-35.0) % Lymph # (1.2-5.4) K/mm3 Teller # (0.0-0.8) K/mm3 Seg Neutrophils % (40.0-70.0) % Seg Neutrophils # (1.8-7.7) K/mm3 Chloride (98-107) mmol/L Carbon Dioxide (22-30) mmol/L Creatinine (0.8-1.5) mg/dL Glucose (75-100) mg/dL POC Glucose 146 H 189 H (70-105) Lactic Acid 2.50 H* (0.7-2.0) mmol/L Calcium (8.4-10.2) mg/dL Phosphorus (2.5-4.5) mg/dL Total Creatine Kinase (55-170) units/L Urine WBC (Auto) (0.0-6.0) /HPF Urine Creatinine (0.1-20.0) mg/dL Urine Total Protein (5-11.8) mg/dL 02/14/17 02/14/17 02/14/17 Range/Units 11:28 12:28 12:28 WBC 16.4 H (4.5-11.0) K/mm3 RBC 5.27 H (3.65-5.03) M/mm3 MCV 78 L (84-94) fl MCH 24 L (28-32) pg MCHC 31 L (32-34) % Lymph % (Auto) 5.6 L (13.4-35.0) % Lymph # 0.9 L (1.2-5.4) K/mm3 Teller # 1.0 H (0.0-0.8) K/mm3 Seg Neutrophils % 87.8 H (40.0-70.0) % Seg Neutrophils # 14.4 H (1.8-7.7) K/mm3 Chloride 90.6 L (98-107) mmol/L Carbon Dioxide 16 L (22-30) mmol/L Creatinine 8.6 H (0.8-1.5) mg/dL Glucose 177 H (75-100) mg/dL POC Glucose 147 H (70-105) Lactic Acid (0.7-2.0) mmol/L Calcium 7.8 L (8.4-10.2) mg/dL Phosphorus (2.5-4.5) mg/dL Total Creatine Kinase (55-170) units/L Urine WBC (Auto) (0.0-6.0) /HPF Urine Creatinine (0.1-20.0) mg/dL Urine Total Protein (5-11.8) mg/dL 02/14/17 Range/Units 12:28 WBC (4.5-11.0) K/mm3 RBC (3.65-5.03) M/mm3 MCV (84-94) fl MCH (28-32) pg MCHC (32-34) % Lymph % (Auto) (13.4-35.0) % Lymph # (1.2-5.4) K/mm3 Teller # (0.0-0.8) K/mm3 Seg Neutrophils % (40.0-70.0) % Seg Neutrophils # (1.8-7.7) K/mm3 Chloride (98-107) mmol/L Carbon Dioxide (22-30) mmol/L Creatinine (0.8-1.5) mg/dL Glucose (75-100) mg/dL POC Glucose (70-105) Lactic Acid (0.7-2.0) mmol/L Calcium (8.4-10.2) mg/dL Phosphorus 6.00 H (2.5-4.5) mg/dL Total Creatine Kinase (55-170) units/L Urine WBC (Auto) (0.0-6.0) /HPF Urine Creatinine (0.1-20.0) mg/dL Urine Total Protein (5-11.8) mg/dL Diabetes panel 02/14/17 Range/Units 12:28 Sodium 140 (137-145) mmol/L Potassium 3.7 (3.6-5.0) mmol/L Chloride 90.6 L (98-107) mmol/L Carbon Dioxide 16 L (22-30) mmol/L Creatinine 8.6 H (0.8-1.5) mg/dL Glucose 177 H (75-100) mg/dL Calcium 7.8 L (8.4-10.2) mg/dL Calcium panel 02/14/17 02/14/17 Range/Units 12:28 12:28 Calcium 7.8 L (8.4-10.2) mg/dL Phosphorus 6.00 H (2.5-4.5) mg/dL Pituitary panel 02/14/17 Range/Units 12:28 Sodium 140 (137-145) mmol/L Potassium 3.7 (3.6-5.0) mmol/L Chloride 90.6 L (98-107) mmol/L Carbon Dioxide 16 L (22-30) mmol/L Creatinine 8.6 H (0.8-1.5) mg/dL Glucose 177 H (75-100) mg/dL Calcium 7.8 L (8.4-10.2) mg/dL Adrenal panel 02/14/17 Range/Units 12:28 Sodium 140 (137-145) mmol/L Potassium 3.7 (3.6-5.0) mmol/L Chloride 90.6 L (98-107) mmol/L Carbon Dioxide 16 L (22-30) mmol/L Creatinine 8.6 H (0.8-1.5) mg/dL Glucose 177 H (75-100) mg/dL Calcium 7.8 L (8.4-10.2) mg/dL - Imaging CT scan - abdomen: report reviewed, image reviewed CT scan - pelvis: report reviewed, image reviewed (small bowel obstruction) Assessment and Plan 71-year-old male with 1. Small bowel obstruction 2. LINDA 3. UTI 4. DM 5. HTN Plan: 1. NGT to low CONTINUOUS suction 2. strict intake/output 3. NPO 4. IVF - will give 1L NS bolus now 5. vicente catheter for strict I/Os 6. daily CBC, BMP 7. pain and nausea control PRN 8. serial abdominal exams 9. GI/DVT ppx 10. obstruction series stat, and daily
[2017-02-14] MEDS ORDERED: MORPHINE IV PRN (13:21)
[2017-02-14] MEDS: PROTONIX IV SCH (15:15)
--- NOTE | 2017-02-14 15:23 | XRay Report ---
FINAL REPORT EXAM: XR ABD SERIES W CXR 1V HISTORY: sbo TECHNIQUE: Frontal chest and two-view abdomen PRIORS: None. FINDINGS: There is no cardiomegaly. There is no evidence of pulmonary vascular congestion. There is some patchy infiltrate in the right lower lobe. There is some atelectasis at the left base. There are no pleural effusion seen. There is no pneumothorax seen. A nasogastric tube terminates in the stomach. There is no free intraperitoneal air. The bowel gas pattern is nonspecific. There are dilated loops of bowel. I cannot exclude small bowel obstruction. There are pelvic calcifications which are likely phleboliths. There are radiation seeds in the prostate gland. IMPRESSION: Some patchy infiltrate in the right lower lobe. Minimal atelectasis at left lung base. Dilated small bowel loops seen which is concerning for small bowel obstruction.
[2017-02-14] MEDS: ALBURX 25% (ALBUMIN) IV SCH (16:27)
[2017-02-14] MEDS ORDERED: D50W (25GM) Syringe IV PRN (16:29)
[2017-02-14] MEDS: NOVOLOG SUB-Q SCH (17:06)
[2017-02-15] MEDS: ZOSYN/NS 2.25 GM/50ML 2.25 GM/50 ML BAG IV SCH ×4 (00:07→22:06)
[2017-02-15] MEDS: SODIUM BICARBONATE 150 MEQ in D5W 1,000 ML IV SCH ×2 (00:07→18:11)
[2017-02-15] MEDS: NOVOLOG SUB-Q SCH ×4 (00:08→18:10)
[2017-02-15] MEDS: ALBURX 25% (ALBUMIN) IV SCH ×2 (01:36→08:33)
--- NOTE | 2017-02-15 03:49 | XRay Report ---
FINAL REPORT PROCEDURE: XR ABDOMEN 1V AP TECHNIQUE: Abdominal radiograph, single supine AP view. HISTORY: tube placement COMPARISON: 02/14/2017 FINDINGS: Bowel gas pattern:There are distended loops of bowel suggesting generalized ileus.. Masses or calcifications:None. Bony structures:No significant abnormality. Other:NG tube is in the stomach.. IMPRESSION: NG tube is in the stomach.
[2017-02-15 05:54] LABS: Basophils % (Auto) 0.1 % (0.0-1.8); Eosinophils % (Auto) 1.4 % (0.0-4.3); Hemoglobin 11.2 gm/dl (11.8-15.2); Mean Corpuscular HGB Conc 33 % (32-34); Mean Corpuscular Volume 78 fl (84-94); Platelet Count 238 K/mm3 (140-440); Red Blood Count 4.38 M/mm3 (3.65-5.03); Red Cell Distribution Width 14.7 % (13.2-15.2); White Blood Count 13.6 K/mm3 (4.5-11.0)
[2017-02-15 05:58] LABS: Hematocrit 36.1 % (35.5-45.6); Mean Corpuscular Hemoglobin 26 pg (28-32)
[2017-02-15 06:13] LABS: Calcium 6.9 mg/dL (8.4-10.2); Chloride 93.5 mmol/L (98-107); Magnesium 2.1 mg/dL (1.7-2.3); Phosphorous 4.4 mg/dL (2.5-4.5); Potassium 3.1 mmol/L (3.6-5.0)
[2017-02-15] MEDS ORDERED: K-DUR PO ONE ×2 (07:45→08:00)
[2017-02-15] MEDS ORDERED: ALBURX 25% (ALBUMIN) IV NR (09:30)
--- NOTE | 2017-02-15 10:06 | XRay Report ---
ABDOMINAL SERIES THREE VIEWS: 02/15/17 CLINICAL: Small bowel obstruction. COMPARISON: 02/14/17 FINDINGS: The supine view demonstrates worsened small bowel distention. Increased size and number of dilated small bowel is with thumbprinting. The thumbprinting is a new finding since last exam. Air-fluid levels in the upper abdomen. The distal ascending colon and hepatic flexure are mildly distended with an irregular shape suggestive of thumbprinting. The nasogastric tube tip is in the mid stomach. No pneumoperitoneum. No mass or suspicious calcifications.Brachytherapy seeds in the prostate. IMPRESSION: Increased small bowel distention and new thumbprinting which is worrisome for small bowel ischemia as well as possible right colon ischemia. No evidence of perforation.
[2017-02-15] MEDS: PROTONIX IV SCH (10:22)
--- NOTE | 2017-02-15 12:32 | Progress Note ---
Assessment and Plan 71 yo M with 1. SBO 2. hx prostate ca s/p radiation 3. LINDA/ATN 4. leukocytosis - improving 5. hypokalemia Plan: 1. NPO - may have minimal ice chips 2. IVF 3. OOB/ambulate - ok to clamp NGT to ambulate 4. serial abdominal exams 5. obstruction series today does not show improvement in bowel dilatation. Clinically there are no signs of bowel ischemia. Leukocytosis is improved, Afebrile, has bowel function, minimal NGT output this am, and no abdominal pain. Will repeat obs series in am 6. monitor renal function - may need renal ultrasound to r/o intrinsic cause since no baseline Milker Machine available. will defer to nephro 7. NGT TO CONTINUOUS suction - flush q2 with air to maintain patency 8. strict I/Os 9. vicente catheter for strict urine output 10. pain and nausea control prn 11. DVT/GI ppx 12. replace lytes Subjective Date of service: 02/15/17 Narrative: Pt seen and examined. Feels better today and has no abdominal pain. States he has had 2 bowel movements since yesterday. No flatus. No n/v. Afebrile. Asking for something to drink. He sneezed out his NGT overnight and a new 18F NGT was placed. Objective Vital Signs - 12hr 02/15/17 02/15/17 02/15/17 01:32 01:38 02:04 Temperature 98.3 F 98.3 F 98.3 F Pulse Rate 88 88 89 Respiratory 18 18 18 Rate Blood Pressure 98/62 98/62 113/56 O2 Sat by Pulse 92 94 Oximetry 02/15/17 02/15/17 02/15/17 02:42 03:18 06:56 Temperature 98.1 F 98.1 F 97.7 F Pulse Rate 89 93 H 95 H Respiratory 18 18 18 Rate Blood Pressure 127/72 118/74 123/71 O2 Sat by Pulse 93 92 92 Oximetry 02/15/17 08:18 Temperature 97.7 F Pulse Rate 93 H Respiratory 18 Rate Blood Pressure 114/63 O2 Sat by Pulse 92 Oximetry - General physical appearance Narrative Exam: Gen: AAOx3. NAD ENT: NGT in place - minimal light brown fluid drainage CV: S1, S2+ Resp: + rhonchi b/l, no wheezes Abd: soft, distended, NT. no r/r/g. no peritoneal signs. hypoactive bowel sounds Ext: No c/c/e NGT: 650cc/25 hours UO: approximately 400cc in vicente bag - Labs 02/15/17 05:19 02/15/17 05:19 Diabetes panel 02/14/17 02/15/17 Range/Units 12:28 05:19 Sodium 140 144 (137-145) mmol/L Potassium 3.7 3.1 L (3.6-5.0) mmol/L Chloride 90.6 L 93.5 L (98-107) mmol/L Carbon Dioxide 16 L 20 L (22-30) mmol/L BUN 120 H 135 H (9-20) mg/dL Creatinine 8.6 H 9.1 H (0.8-1.5) mg/dL Glucose 177 H 157 H (75-100) mg/dL Calcium 7.8 L 6.9 L (8.4-10.2) mg/dL Calcium panel 02/14/17 02/14/17 02/15/17 Range/Units 12:28 12:28 05:19 Calcium 7.8 L 6.9 L (8.4-10.2) mg/dL Phosphorus 6.00 H 4.40 D (2.5-4.5) mg/dL Pituitary panel 02/14/17 02/15/17 Range/Units 12:28 05:19 Sodium 140 144 (137-145) mmol/L Potassium 3.7 3.1 L (3.6-5.0) mmol/L Chloride 90.6 L 93.5 L (98-107) mmol/L Carbon Dioxide 16 L 20 L (22-30) mmol/L BUN 120 H 135 H (9-20) mg/dL Creatinine 8.6 H 9.1 H (0.8-1.5) mg/dL Glucose 177 H 157 H (75-100) mg/dL Calcium 7.8 L 6.9 L (8.4-10.2) mg/dL Adrenal panel 02/14/17 02/15/17 Range/Units 12:28 05:19 Sodium 140 144 (137-145) mmol/L Potassium 3.7 3.1 L (3.6-5.0) mmol/L Chloride 90.6 L 93.5 L (98-107) mmol/L Carbon Dioxide 16 L 20 L (22-30) mmol/L BUN 120 H 135 H (9-20) mg/dL Creatinine 8.6 H 9.1 H (0.8-1.5) mg/dL Glucose 177 H 157 H (75-100) mg/dL Calcium 7.8 L 6.9 L (8.4-10.2) mg/dL - Imaging Chest x-ray: report reviewed, image reviewed Abdominal x-ray: report reviewed, image reviewed
[2017-02-15] MEDS ORDERED: NACL 0.9% 100 ML IV PRN (13:39)
--- NOTE | 2017-02-15 13:39 | Progress Note ---
Assessment and Plan Acute Kidney injury likely ATN from NSAIDs/Prerenal -Unknown CKD as no BL Cr available -Has been on ibuprofen 800 mg TID for the last 1 month for hip pain -Possibly may have ATN from it. -CT abdomen -ve for hydronephrosis. -BUN/Cr worsening. Minimal Urine with vicente. Discussed Risks and benefits of dialysis with pt and his family, risks including arrythmia, stroke, hypotension , infection, bleeding, air embolism etc. Pt agrees to dialysis. Plan for Vascular Surgery to put in Vascath and dialysis ordered for today. -Vicente. -Strict I/O -Renally dose all meds -Avoid nephrotoxic meds -Hold HCTZ/Lisinopril Small bowel obstruction: -On CT. GS Dr Mazariegos on board. Per her. Essential hypertension: -Hold all BP meds as BP low. -Avoid Benito inh/ARBs including lisinopril Metabolic acidosis: -Bicarb drip at 125 mls/hr. -Initiating on HD. Sepsis possibly due to UTI: Leukocytosis: -On Abx, per primary -Urine Cx ordered -Blood Cx drawn. Diabetes mellitus type 2 on metformin at home: -Hold home metformin -Per primary Hyperlipidemia, chronic: -Statin when safe to eat. History of prostate cancer s/p surgery: -Can continue home flomax Plan d/w pt and family at bedside. Jovani Fonseca MD Nephrology, Hypertension, Dialysis, Transplantation Phone no: [phone] Subjective Date of service: 02/15/17 Interval history: Denies CP/SHOB. Denies Vomiting. Has vicente. Making minimal urine. Objective - Exam Narrative Exam: GE:AAOX3 HEENT: PERRLA Neck: No JVD CVS: RRR Chest: CTAB Abd: Distended, Mild TTP Ext: No cce Neuro: AAOX3 - Vital Signs Vital signs: Vital Signs - 12hr 02/15/17 02/15/17 02/15/17 01:38 02:04 02:42 Temperature 98.3 F 98.3 F 98.1 F Pulse Rate 88 89 89 Respiratory 18 18 18 Rate Blood Pressure 98/62 113/56 127/72 O2 Sat by Pulse 94 93 Oximetry 02/15/17 02/15/17 02/15/17 03:18 06:56 08:18 Temperature 98.1 F 97.7 F 97.7 F Pulse Rate 93 H 95 H 93 H Respiratory 18 18 18 Rate Blood Pressure 118/74 123/71 114/63 O2 Sat by Pulse 92 92 92 Oximetry - Lab 02/15/17 05:19 02/15/17 05:19 Most recent lab results Calcium 6.9 mg/dL (8.4-10.2) L 02/15/17 05:19 Phosphorus 4.40 mg/dL (2.5-4.5) D 02/15/17 05:19 Magnesium 2.10 mg/dL (1.7-2.3) 02/15/17 05:19 Urine Creatinine 401.9 mg/dL (0.1-20.0) H 02/13/17 15:05 Urine Sodium 34 mmol/L 02/13/17 15:05 Urine Total Protein 89 mg/dL (5-11.8) H 02/13/17 15:05
--- NOTE | 2017-02-15 13:49 | Progress Note ---
Assessment and Plan Assessment and plan: Patient is a 71 YO Man with HTN, CaP, HLD, DM presents to ED for evaluation. Pt states that he has experienced pain in his abdomen for the past 5 days with persistent symptoms over that same time frame. Pt stats that pain is 5/10, aching, no exacerbating or alleviating factors. Pt acknowledges flatus, and bowel movement, but states that he has urinated only 3 times in the past 4 days and that he does not have the urge to urinate. Pt acknowledges 2 episodes of nausea and vomiting over the past 12 hours. Pt denies fever, shaking chills, CP , palpitations, hematuria, dysuria, productive cough, or recent ill contacts. Pt seen and evaluted in the ED and found to have acute renal failure with a serum creatnine of 7.4, as well as evidence of sepsis. Nephrology consulted in ED, and patient initiated on sepsis protocol. 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 -CT abdomen -ve for hydronephrosis. -BUN/Cr trending up. Hydrate with bicarb drip at 125 mls/hr. -Boykin ordered. Not put in yesterday. -Strict I/O -Renally dose all meds -Avoid nephrotoxic meds -Hold HCTZ/Lisinopril SBO (small bowel obstruction) Bowel rest Gen Surg Dr Holt following Hx of Prostate Cancer Continue flomax DVT prophylaxis Sub Q Heparin, SCDs New Issue: verbal report that 1 out of 2 bottles blood culture growing gram- negative rods, continue IV Zosyn, await report to stop iv vancomycin, RN to notify Dr. Jovani Fonseca, telecom specialist D/W Gen. Surgeon, Dr. Mazariegos, most likely from uti History Interval history: Patient was seen and examined. Follow-up on current diagnosis/abdominal pain. Overnight uneventful. Patient denies any chest pain, shortness breath, nausea/ vomiting or severe headaches. Imaging, nursing note, chart, labs and old chart reviewed. Discussed with patient. Hospitalist Physical - Physical exam Narrative exam: GEN: WDWN, NAD, AWAKE, ALERT, ORIENTATED 3 HEENT: NCAT, EOMI, PERRL, OP Clear NECK: supple, no adenopathy, no thyromegaly, no JVD CVS/HEART: RRR, NORMAL S1S2, NO JVD, pulses present bilaterally CHEST/LUNGS: CTA B, Symmetrical chest expansion, good air entry bilaterally GI/Abdomen: soft, distended, hypoactive but improved bowel sounds, no guarding or rebound /Bladder: no suprapubic tenderness, no CVA or paraspinal tenderness EXT/Skin: no c/c/e, no obvious rash MSK: FROM x 4 Neuro: CN 2-12 grossly intact, no new focal deficits Psych: calm - Constitutional Vitals: Temp Pulse Resp BP Pulse Ox 97.7 F 93 H 18 114/63 92 02/15/17 08:18 02/15/17 08:18 02/15/17 08:18 02/15/17 08:18 02/15/17 08:18 General appearance: Present: no acute distress Results - Labs CBC & Chem 7: 02/15/17 05:19 02/15/17 05:19 Labs: Laboratory Last Values WBC 13.6 K/mm3 (4.5-11.0) H 02/15/17 05:19 RBC 4.38 M/mm3 (3.65-5.03) 02/15/17 05:19 Hgb 11.2 gm/dl (11.8-15.2) L 02/15/17 05:19 Hct 36.1 % (35.5-45.6) 02/15/17 05:19 MCV 78 fl (84-94) L 02/15/17 05:19 MCH 26 pg (28-32) L 02/15/17 05:19 MCHC 33 % (32-34) 02/15/17 05:19 RDW 14.7 % (13.2-15.2) 02/15/17 05:19 Plt Count 238 K/mm3 (140-440) 02/15/17 05:19 Lymph % (Auto) 2.2 % (13.4-35.0) L 02/15/17 05:19 Routt % (Auto) 8.0 % (0.0-7.3) H 02/15/17 05:19 Eos % (Auto) 1.4 % (0.0-4.3) 02/15/17 05:19 Baso % (Auto) 0.1 % (0.0-1.8) 02/15/17 05:19 Lymph # 0.3 K/mm3 (1.2-5.4) L 02/15/17 05:19 Routt # 1.1 K/mm3 (0.0-0.8) H 02/15/17 05:19 Eos # 0.2 K/mm3 (0.0-0.4) 02/15/17 05:19 Baso # 0.0 K/mm3 (0.0-0.1) 02/15/17 05:19 Seg Neutrophils % 88.3 % (40.0-70.0) H 02/15/17 05:19 Seg Neutrophils # 12.0 K/mm3 (1.8-7.7) H 02/15/17 05:19 Sodium 144 mmol/L (137-145) 02/15/17 05:19 Potassium 3.1 mmol/L (3.6-5.0) L 02/15/17 05:19 Chloride 93.5 mmol/L (98-107) L 02/15/17 05:19 Carbon Dioxide 20 mmol/L (22-30) L 02/15/17 05:19 Anion Gap 34 mmol/L 02/15/17 05:19 BUN 135 mg/dL (9-20) H 02/15/17 05:19 Creatinine 9.1 mg/dL (0.8-1.5) H 02/15/17 05:19 Estimated GFR 7 ml/min 02/15/17 05:19 BUN/Creatinine Ratio 15 % 02/15/17 05:19 Glucose 157 mg/dL (75-100) H 02/15/17 05:19 POC Glucose 142 (70-105) H 02/15/17 12:21 Lactic Acid 2.50 mmol/L (0.7-2.0) H* 02/14/17 01:05 Calcium 6.9 mg/dL (8.4-10.2) L 02/15/17 05:19 Phosphorus 4.40 mg/dL (2.5-4.5) D 02/15/17 05:19 Magnesium 2.10 mg/dL (1.7-2.3) 02/15/17 05:19 Total Bilirubin 0.20 mg/dL (0.1-1.2) 02/13/17 11:06 AST 21 units/L (5-40) 02/13/17 11:06 ALT 25 units/L (7-56) 02/13/17 11:06 Alkaline Phosphatase 110 units/L (35-129) 02/13/17 11:06 Total Creatine Kinase 198 units/L (55-170) H 02/13/17 11:06 NT-Pro-B Natriuret Pep 256.4 pg/mL (0-900) 02/15/17 05:19 Total Protein 8.1 g/dL (6.3-8.2) 02/13/17 11:06 Albumin 3.5 g/dL (3.9-5) L 02/13/17 11:06 Albumin/Globulin Ratio 0.8 % 02/13/17 11:06 Lipase 21 units/L (13-60) 02/13/17 11:06 Urine Color Yellow (Yellow) 02/13/17 15:05 Urine Turbidity Clear (Clear) 02/13/17 15:05 Urine pH 5.0 (5.0-7.0) 02/13/17 15:05 Ur Specific Comfort 1.020 (1.003-1.030) 02/13/17 15:05 Urine Protein 100 mg/dl mg/dL (Negative) 02/13/17 15:05 Urine Glucose (UA) 50 mg/dL (Negative) 02/13/17 15:05 Urine Ketones Neg mg/dL (Negative) 02/13/17 15:05 Urine Blood Sm (Negative) 02/13/17 15:05 Urine Nitrite Neg (Negative) 02/13/17 15:05 Urine Bilirubin Neg (Negative) 02/13/17 15:05 Urine Urobilinogen < 2.0 mg/dL (<2.0) 02/13/17 15:05 Ur Leukocyte Esterase Neg (Negative) 02/13/17 15:05 Urine WBC (Auto) 26.0 /HPF (0.0-6.0) H 02/13/17 15:05 Urine RBC (Auto) 5.0 /HPF (0.0-6.0) 02/13/17 15:05 U Epithel Cells (Auto) 1.0 /HPF (0-13.0) 02/13/17 15:05 Urine Bacteria (Auto) 1+ /HPF (Negative) 02/13/17 15:05 Hyaline Casts 3 /LPF 02/13/17 15:05 Urine Mucus Few /HPF 02/13/17 15:05 Urine Eosinophils None seen (None Seen) 02/13/17 15:05 Urine Creatinine 401.9 mg/dL (0.1-20.0) H 02/13/17 15:05 Protein/Creatinin Ratio 0.22 02/13/17 15:05 Urine Sodium 34 mmol/L 02/13/17 15:05 Urine Urea Nitrogen 181 02/13/17 15:05 Urine Total Protein 89 mg/dL (5-11.8) H 02/13/17 15:05
[2017-02-15] MEDS ORDERED: KCL 10MEQ/100ML 10 MEQ/100 ML BAG IV SCH (15:00)
--- NOTE | 2017-02-15 15:21 | Event Note ---
Date: 02/15/17 Patient in need of dialysis. Discussed with Dr Fonseca and can have Vascath placed tomorrow in the cathlab. Discussed the risk, benefits, and alternatives with the patient. Informed consent was obtained.
[2017-02-15] MEDS: HEPARIN SUB-Q SCH (16:41)
[2017-02-16] MEDS: NOVOLOG SUB-Q SCH ×4 (03:05→17:56)
[2017-02-16] MEDS: ZOSYN/NS 2.25 GM/50ML 2.25 GM/50 ML BAG IV SCH ×3 (05:47→21:17)
[2017-02-16 06:24] LABS: Hematocrit 35.5 % (35.5-45.6); Hemoglobin 11.9 gm/dl (11.8-15.2); Mean Corpuscular HGB Conc 33 % (32-34); Mean Corpuscular Volume 77 fl (84-94); Platelet Count 273 K/mm3 (140-440); Red Cell Distribution Width 14.9 % (13.2-15.2); White Blood Count 17.2 K/mm3 (4.5-11.0)
[2017-02-16 06:25] LABS: Mean Corpuscular Hemoglobin 26 pg (28-32)
[2017-02-16 06:35] LABS: Albumin 3.5 g/dL (3.9-5); Bilirubin,Total 0.3 mg/dL (0.1-1.2); Calcium 7.2 mg/dL (8.4-10.2); Chloride 95.3 mmol/L (98-107); Magnesium 2.2 mg/dL (1.7-2.3); Total Protein 7.1 g/dL (6.3-8.2)
[2017-02-16] MEDS ORDERED: VERSED ONE (08:57)
[2017-02-16] MEDS ORDERED: HEPARIN 10,000 UNITS/10 ML ONE (08:57)
[2017-02-16] MEDS ORDERED: NACL 0.9% 250ML 0 ML ONE (08:57)
[2017-02-16] MEDS ORDERED: HEPARIN/NS 5000 UNIT/500ML(CATH LAB) 500 ML IR ONE (08:57)
[2017-02-16] MEDS ORDERED: XYLOCAINE 2% INFILTRATI ONE (08:57)
[2017-02-16] MEDS ORDERED: SUBLIMAZE ONE (08:57)
[2017-02-16] MEDS ORDERED: ANCEF/STERILE WATER 2 GM/20 ML 2 GM/20 ML SYRINGE IV ONE (08:58)
--- NOTE | 2017-02-16 09:39 | Operative Report ---
Operative Report Operative Report: Date of Procedure: 02/16/2017 Pre-operative Diagnosis: Renal Failure Post-operative Diagnosis: Same Procedure(s): 1. Ultrasound Guided Access Right Internal Jugular Vein 2. Placement of 16 cm Precurved Vascath 3. Radiologic Supervision with Interpretation Surgeon: Aron Sierra M.D. Focusing Machine Operator: None Anesthesia: Local and IV Sedation EBL: Minimal Counts: Correct Complications: None Condition: Stable Findings: Successful placement of Vas-Cath with tip at cavoatrial junction. Specimen: None Indication: The patient is a 71-year-old male who presented to the emergency department with a partial small bowel obstruction and renal failure with a questionable history of acute versus chronic renal failure. He had more urine output and despite fluid challenges as made minimal improvement with his renal failure. He is in need of hemodialysis and needs access for dialysis. He was given the risks, benefits, and alternative procedures of Vas-Cath, and consented to the procedure. Description of Procedure: The patient was brought to the Managing Editor in supine position. After was adequately sedated in his right neck and chest were prepped and draped in normal sterile fashion. Ultrasound was used to identify the right internal jugular vein and confirmed patency. The overlying skin and soft tissue was anesthetized with lidocaine and a small stab incision was created with an 11 blade. An 18-gauge needle was used to access the right internal jugular vein under ultrasound guidance and a 0.035 J-wire was advanced into the central venous system and advanced into the vena cava under fluoroscopy. The tract was dilated and then the 16 cm pre-curved Vas-Cath was placed by Seldinger technique with the tip at the cavoatrial junction. Fluoroscopy also demonstrated that there was no evidence of pneumothorax. Both ports were aspirated and flushed and primed with the appropriate amount of heparin. The catheter was secured in place with 2-0 Ethilon and dressed sterilely. The patient tolerated the procedure well. All sponge, needle, and instrument counts were correct. Patient was taken back to his room in stable condition.
[2017-02-16] MEDS: PROTONIX IV SCH ×2 (10:59→16:44)
[2017-02-16] MEDS: HEPARIN SUB-Q SCH ×2 (10:59→21:17)
[2017-02-16] MEDS ORDERED: NACL 0.9% 100 ML IV PRN ×2 (11:19→14:51)
[2017-02-16] MEDS ORDERED: HEPARIN IV PRN (11:19)
--- NOTE | 2017-02-16 12:32 | Progress Note ---
Assessment and Plan 71 yo M with 1. SBO 2. hx prostate ca s/p radiation 3. LINDA/ATN 4. leukocytosis 5. hypokalemia 6. Sepsis -> g neg rods in Blcx 1 bottle 7. UTI Plan: 1. NPO - may have ice chips and sips of water 2. IVF - change to maintenance fluids. bicarb levels have improved to within normal limits 3. OOB/ambulate 4. DC NGT - patient having bowel function. Does not need obstruction series today. 5. pain and nausea control prn 6. DVT/GI ppx 7. replace lytes 8. started on HD today, monitor kidney function 9. continue vicente for strict Uo, dc when ok with nephro 10. elevated WBC, likely related to UTI, urine cx pending, repeat blcx pending. continue current abx. 11. D/W Dr. Fonseca (nephro) Subjective Date of service: 02/16/17 Narrative: Pt seen and examined in HD. No complaints. Denies abdominal pain, n/v. Wants to eat. Had flatus and another BM today. Pt is s/p placement of vascath this am by vascular surgery to start on dialysis. Objective Vital Signs - 12hr 02/16/17 02/16/17 02/16/17 01:28 03:58 07:29 Temperature 97.6 F 97.5 F L 97.8 F Pulse Rate 87 94 H 91 H Respiratory 18 18 24 Rate Blood Pressure 127/74 136/87 138/80 O2 Sat by Pulse 96 94 95 Oximetry - General physical appearance Narrative Exam: Gen: AAOx3. NAD ENT: NGT in place CV: S1, S2+ resp: No audible wheezes Abd: soft, NT, ND. + bowel sounds in all 4 quadrants. no r/r/g Ext: No c/c/e - Labs 02/16/17 05:34 02/16/17 05:34 Diabetes panel 02/16/17 Range/Units 05:34 Sodium 148 H (137-145) mmol/L Potassium 3.0 L (3.6-5.0) mmol/L Chloride 95.3 L (98-107) mmol/L Carbon Dioxide 22 (22-30) mmol/L BUN 143 H (9-20) mg/dL Creatinine 8.4 H (0.8-1.5) mg/dL Glucose 128 H (75-100) mg/dL Calcium 7.2 L (8.4-10.2) mg/dL AST 17 (5-40) units/L ALT 35 (7-56) units/L Alkaline Phosphatase 112 (35-129) units/L Total Protein 7.1 (6.3-8.2) g/dL Albumin 3.5 L (3.9-5) g/dL Calcium panel 02/16/17 Range/Units 05:34 Calcium 7.2 L (8.4-10.2) mg/dL Albumin 3.5 L (3.9-5) g/dL Pituitary panel 02/16/17 Range/Units 05:34 Sodium 148 H (137-145) mmol/L Potassium 3.0 L (3.6-5.0) mmol/L Chloride 95.3 L (98-107) mmol/L Carbon Dioxide 22 (22-30) mmol/L BUN 143 H (9-20) mg/dL Creatinine 8.4 H (0.8-1.5) mg/dL Glucose 128 H (75-100) mg/dL Calcium 7.2 L (8.4-10.2) mg/dL Adrenal panel 02/16/17 Range/Units 05:34 Sodium 148 H (137-145) mmol/L Potassium 3.0 L (3.6-5.0) mmol/L Chloride 95.3 L (98-107) mmol/L Carbon Dioxide 22 (22-30) mmol/L BUN 143 H (9-20) mg/dL Creatinine 8.4 H (0.8-1.5) mg/dL Glucose 128 H (75-100) mg/dL Calcium 7.2 L (8.4-10.2) mg/dL Total Bilirubin 0.30 (0.1-1.2) mg/dL AST 17 (5-40) units/L ALT 35 (7-56) units/L Alkaline Phosphatase 112 (35-129) units/L Total Protein 7.1 (6.3-8.2) g/dL Albumin 3.5 L (3.9-5) g/dL
--- NOTE | 2017-02-16 13:15 | Progress Note ---
Assessment and Plan Assessment and plan: Patient is a 71 YO Man with HTN, CaP, HLD, DM presents to ED for evaluation. Pt states that he has experienced pain in his abdomen for the past 5 days with persistent symptoms over that same time frame. Pt stats that pain is 5/10, aching, no exacerbating or alleviating factors. Pt acknowledges flatus, and bowel movement, but states that he has urinated only 3 times in the past 4 days and that he does not have the urge to urinate. Pt acknowledges 2 episodes of nausea and vomiting over the past 12 hours. Pt denies fever, shaking chills, CP , palpitations, hematuria, dysuria, productive cough, or recent ill contacts. Pt seen and evaluted in the ED and found to have acute renal failure with a serum creatnine of 7.4, as well as evidence of sepsis. Nephrology consulted in ED, and patient initiated on sepsis protocol. 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 -BUN/Cr trending up. Hydrate with bicarb drip at 125 mls/hr. -Boykin ordered. Not put in yesterday. -Strict I/O -Renally dose all meds -Avoid nephrotoxic meds -Hold HCTZ/Lisinopril SBO (small bowel obstruction) Bowel rest Gen Surg Dr Holt following Hx of Prostate Cancer Continue flomax DVT prophylaxis Sub Q Heparin, SCDs New Issue: verbal report that 1 out of 2 bottles blood culture growing gram- negative rods, continue IV Zosyn, await report to stop iv vancomycin, RN to notify Dr. Jovani Fonseca, financial director D/W Gen. Surgeon, Dr. Mazariegos, most likely from uti 02/16/17 Had vascath, going for Hemodialysis today History Interval history: Patient was seen and examined. Follow-up on current diagnosis/abdominal pain. Overnight uneventful. Patient denies any chest pain, shortness breath, nausea/ vomiting or severe headaches. Imaging, nursing note, chart, labs and old chart reviewed. Discussed with patient. Hospitalist Physical - Physical exam Narrative exam: GEN: WDWN, NAD, AWAKE, ALERT, ORIENTATED 3 HEENT: NCAT, EOMI, PERRL, OP Clear NECK: supple, no adenopathy, no thyromegaly, no JVD CVS/HEART: RRR, NORMAL S1S2, NO JVD, pulses present bilaterally CHEST/LUNGS: CTA B, Symmetrical chest expansion, good air entry bilaterally GI/Abdomen: soft, distended, hypoactive but improved bowel sounds, no guarding or rebound /Bladder: no suprapubic tenderness, no CVA or paraspinal tenderness EXT/Skin: no c/c/e, no obvious rash MSK: FROM x 4 Neuro: CN 2-12 grossly intact, no new focal deficits Psych: calm - Constitutional Vitals: Temp Pulse Resp BP Pulse Ox 97.8 F 91 H 24 138/80 95 02/16/17 07:29 02/16/17 07:29 02/16/17 07:29 02/16/17 07:29 02/16/17 07:29 General appearance: Present: no acute distress Results - Labs CBC & Chem 7: 02/16/17 05:34 02/16/17 05:34 Labs: Laboratory Last Values WBC 17.2 K/mm3 (4.5-11.0) H 02/16/17 05:34 RBC 4.60 M/mm3 (3.65-5.03) 02/16/17 05:34 Hgb 11.9 gm/dl (11.8-15.2) 02/16/17 05:34 Hct 35.5 % (35.5-45.6) 02/16/17 05:34 MCV 77 fl (84-94) L 02/16/17 05:34 MCH 26 pg (28-32) L 02/16/17 05:34 MCHC 33 % (32-34) 02/16/17 05:34 RDW 14.9 % (13.2-15.2) 02/16/17 05:34 Plt Count 273 K/mm3 (140-440) 02/16/17 05:34 Lymph % (Auto) 2.2 % (13.4-35.0) L 02/15/17 05:19 [place] % (Auto) 8.0 % (0.0-7.3) H 02/15/17 05:19 Eos % (Auto) 1.4 % (0.0-4.3) 02/15/17 05:19 Baso % (Auto) 0.1 % (0.0-1.8) 02/15/17 05:19 Lymph # 0.3 K/mm3 (1.2-5.4) L 02/15/17 05:19 [place] # 1.1 K/mm3 (0.0-0.8) H 02/15/17 05:19 Eos # 0.2 K/mm3 (0.0-0.4) 02/15/17 05:19 Baso # 0.0 K/mm3 (0.0-0.1) 02/15/17 05:19 Seg Neutrophils % 88.3 % (40.0-70.0) H 02/15/17 05:19 Seg Neutrophils # 12.0 K/mm3 (1.8-7.7) H 02/15/17 05:19 Sodium 148 mmol/L (137-145) H 02/16/17 05:34 Potassium 3.0 mmol/L (3.6-5.0) L 02/16/17 05:34 Chloride 95.3 mmol/L (98-107) L 02/16/17 05:34 Carbon Dioxide 22 mmol/L (22-30) 02/16/17 05:34 Anion Gap 34 mmol/L 02/16/17 05:34 BUN 143 mg/dL (9-20) H 02/16/17 05:34 Creatinine 8.4 mg/dL (0.8-1.5) H 02/16/17 05:34 Estimated GFR 8 ml/min 02/16/17 05:34 BUN/Creatinine Ratio 17 % 02/16/17 05:34 Glucose 128 mg/dL (75-100) H 02/16/17 05:34 POC Glucose 138 (70-105) H 02/16/17 06:18 Lactic Acid 2.50 mmol/L (0.7-2.0) H* 02/14/17 01:05 Calcium 7.2 mg/dL (8.4-10.2) L 02/16/17 05:34 Phosphorus 4.40 mg/dL (2.5-4.5) D 02/15/17 05:19 Magnesium 2.20 mg/dL (1.7-2.3) 02/16/17 05:34 Total Bilirubin 0.30 mg/dL (0.1-1.2) 02/16/17 05:34 AST 17 units/L (5-40) 02/16/17 05:34 ALT 35 units/L (7-56) 02/16/17 05:34 Alkaline Phosphatase 112 units/L (35-129) 02/16/17 05:34 Total Creatine Kinase 198 units/L (55-170) H 02/13/17 11:06 NT-Pro-B Natriuret Pep 256.4 pg/mL (0-900) 02/15/17 05:19 Total Protein 7.1 g/dL (6.3-8.2) 02/16/17 05:34 Albumin 3.5 g/dL (3.9-5) L 02/16/17 05:34 Albumin/Globulin Ratio 1.0 % 02/16/17 05:34 Lipase 21 units/L (13-60) 02/13/17 11:06 Urine Color Yellow (Yellow) 02/13/17 15:05 Urine Turbidity Clear (Clear) 02/13/17 15:05 Urine pH 5.0 (5.0-7.0) 02/13/17 15:[address] 1.020 (1.003-1.030) 02/13/17 15:05 Urine Protein 100 mg/dl mg/dL (Negative) 02/13/17 15:05 Urine Glucose (UA) 50 mg/dL (Negative) 02/13/17 15:05 Urine Ketones Neg mg/dL (Negative) 02/13/17 15:05 Urine Blood Sm (Negative) 02/13/17 15:05 Urine Nitrite Neg (Negative) 02/13/17 15:05 Urine Bilirubin Neg (Negative) 02/13/17 15:05 Urine Urobilinogen < 2.0 mg/dL (<2.0) 02/13/17 15:05 Ur Leukocyte Esterase Neg (Negative) 02/13/17 15:05 Urine WBC (Auto) 26.0 /HPF (0.0-6.0) H 02/13/17 15:05 Urine RBC (Auto) 5.0 /HPF (0.0-6.0) 02/13/17 15:05 U Epithel Cells (Auto) 1.0 /HPF (0-13.0) 02/13/17 15:05 Urine Bacteria (Auto) 1+ /HPF (Negative) 02/13/17 15:05 Hyaline Casts 3 /LPF 02/13/17 15:05 Urine Mucus Few /HPF 02/13/17 15:05 Urine Eosinophils None seen (None Seen) 02/13/17 15:05 Urine Creatinine 401.9 mg/dL (0.1-20.0) H 02/13/17 15:05 Protein/Creatinin Ratio 0.22 02/13/17 15:05 Urine Sodium 34 mmol/L 02/13/17 15:05 Urine Urea Nitrogen 181 02/13/17 15:05 Urine Total Protein 89 mg/dL (5-11.8) H 02/13/17 15:05 Hepatitis A IgM Ab Non-reactive (NonReactive) 02/16/17 11:30 Hep Bs Antigen Non-reactive (Negative) 02/16/17 11:30 Hep B Core IgM Ab Non-reactive (NonReactive) 02/16/17 11:30 Hepatitis C Antibody Non-reactive (NonReactive) 02/16/17 11:30
--- NOTE | 2017-02-16 15:28 | Progress Note ---
Assessment and Plan Acute Kidney injury likely ATN from NSAIDs/Prerenal -Unknown CKD as no BL Cr available -Has been on ibuprofen 800 mg TID for the last 1 month for hip pain -Possibly may have ATN from it. -CT abdomen -ve for hydronephrosis. -BUN/Cr worsening. Discussed Risks and benefits of dialysis with pt and his family, risks including arrhythmia, stroke, hypotension, infection, bleeding, air embolism etc. Pt agrees to dialysis. s/p Rt IJ VC by [facility] today and s/p HD#1 today. Plan for HD#2 tomorrow. -Boykin. -Strict I/O -Renally dose all meds -Avoid nephrotoxic meds -Hold HCTZ/Lisinopril Small bowel obstruction: -On CT. GS Dr Mazariegos on board. Per her. Hypernatremia, Hypertonic: -Started on D5 1/2 NS today. Bicarb drip stopped. Hypokalemia: -Correct with HD. Monitor. Also got some KCL today. Essential hypertension: -Hold all BP meds as BP low. -Avoid [place] inh/ARBs including lisinopril Metabolic acidosis: -Improved. Bicarb drip stopped. -Initiating on HD. Sepsis possibly due to UTI: Leukocytosis: -On Abx, per primary -Urine Cx ordered -Blood Cx drawn. Growing GNR. Diabetes mellitus type 2 on metformin at home: -Hold home metformin -Per primary Hyperlipidemia, chronic: -Statin when safe to eat. History of prostate cancer s/p surgery: -Can continue home flomax Plan d/w pt and family at bedside. Jovani Fonseca MD Nephrology, Hypertension, Dialysis, Transplantation Phone no: [phone] Subjective Date of service: 02/16/17 Interval history: Denies CP/SHOB. s/p Rt IJ VC today and initiated on HD today. Making some urine. Objective - Exam Narrative Exam: GE:AAOX3 HEENT: PERRLA Neck: No JVD CVS: RRR, Rt IJ VC Chest: CTAB Abd: Distended, Mild TTP Ext: No cce Neuro: AAOX3 - Vital Signs Vital signs: Vital Signs - 12hr 02/16/17 02/16/17 02/16/17 03:58 07:29 10:45 Temperature 97.5 F L 97.8 F 97.7 F Pulse Rate 94 H 91 H 88 Respiratory 18 24 18 Rate Blood Pressure 136/87 138/80 147/91 O2 Sat by Pulse 94 95 Oximetry 02/16/17 02/16/17 02/16/17 11:12 11:15 11:30 Temperature Pulse Rate 87 87 78 Respiratory Rate Blood Pressure 146/88 153/99 145/91 O2 Sat by Pulse Oximetry 02/16/17 02/16/17 02/16/17 11:45 12:00 12:15 Temperature Pulse Rate 80 82 82 Respiratory Rate Blood Pressure 143/92 152/96 128/86 O2 Sat by Pulse Oximetry 02/16/17 02/16/17 02/16/17 12:30 12:45 13:00 Temperature Pulse Rate 83 81 80 Respiratory Rate Blood Pressure 134/94 156/86 93/69 O2 Sat by Pulse Oximetry 02/16/17 02/16/17 13:15 13:20 Temperature 98.2 F Pulse Rate 82 80 Respiratory 18 Rate Blood Pressure 98/80 137/108 O2 Sat by Pulse Oximetry - Lab 02/16/17 05:34 02/16/17 05:34 Most recent lab results Calcium 7.2 mg/dL (8.4-10.2) L 02/16/17 05:34 Phosphorus 4.40 mg/dL (2.5-4.5) D 02/15/17 05:19 Magnesium 2.20 mg/dL (1.7-2.3) 02/16/17 05:34 Urine Creatinine 401.9 mg/dL (0.1-20.0) H 02/13/17 15:05 Urine Sodium 34 mmol/L 02/13/17 15:05 Urine Total Protein 89 mg/dL (5-11.8) H 02/13/17 15:05
[2017-02-16] MEDS: D5/0.45NS 1,000 ML IV SCH (16:34)
[2017-02-16] MEDS: KCL 10MEQ/100ML 10 MEQ/100 ML BAG IV SCH ×3 (17:48→21:21)
[2017-02-17] MEDS: NOVOLOG SUB-Q SCH ×4 (00:38→17:51)
[2017-02-17] MEDS: ZOSYN/NS 2.25 GM/50ML 2.25 GM/50 ML BAG IV SCH ×3 (05:17→22:24)
[2017-02-17] MEDS: D5/0.45NS 1,000 ML IV SCH (05:21)
[2017-02-17 06:31] LABS: Hematocrit 35.5 % (35.5-45.6); Hemoglobin 11.6 gm/dl (11.8-15.2); Mean Corpuscular HGB Conc 33 % (32-34); Mean Corpuscular Volume 77 fl (84-94); Platelet Count 279 K/mm3 (140-440); Red Blood Count 4.65 M/mm3 (3.65-5.03); Red Cell Distribution Width 14.9 % (13.2-15.2); White Blood Count 15.7 K/mm3 (4.5-11.0)
[2017-02-17 06:39] LABS: Mean Corpuscular Hemoglobin 25 pg (28-32)
[2017-02-17 09:57] LABS: Calcium 7.9 mg/dL (8.4-10.2); Phosphorous 4.6 mg/dL (2.5-4.5); Potassium 3.3 mmol/L (3.6-5.0)
--- NOTE | 2017-02-17 12:18 | Progress Note ---
Assessment and Plan 71 yo M with 1. SBO 2. hx prostate ca s/p radiation 3. LINDA/ATN 4. leukocytosis 5. hypokalemia 6. Sepsis -> g neg rods in Blcx 1 bottle 7. UTI Plan: 1. start full liquids -> adv to soft diet if tolerates 2. decrease IVF 3. OOB/ambulate 4. DVT/GI ppx 5. replace lytes 6. continue HD per nephro 7. continue vicente for strict Uo, dc when ok with nephro 8. c/w abx per 1' Subjective Date of service: 02/17/17 Narrative: Patient seen and examined. On HD. No complaints. No f/c. No n/v or abdominal pain since NGT removed yesterday. +BM. Feeling hungry. Objective Vital Signs - 12hr 02/17/17 02/17/17 02/17/17 04:12 07:37 10:05 Temperature 98.2 F 98.1 F 98.3 F Pulse Rate 89 85 80 Respiratory 18 20 18 Rate Blood Pressure 119/66 98/71 138/82 O2 Sat by Pulse 94 96 Oximetry 02/17/17 02/17/17 02/17/17 10:07 10:15 10:30 Temperature Pulse Rate 86 78 77 Respiratory Rate Blood Pressure 131/87 130/68 150/81 O2 Sat by Pulse Oximetry 02/17/17 02/17/17 02/17/17 10:45 11:00 11:15 Temperature Pulse Rate 84 87 83 Respiratory Rate Blood Pressure 138/42 151/82 135/90 O2 Sat by Pulse Oximetry 02/17/17 02/17/17 02/17/17 11:32 11:49 12:04 Temperature Pulse Rate 84 85 92 H Respiratory Rate Blood Pressure 133/89 137/85 132/71 O2 Sat by Pulse Oximetry - General physical appearance Narrative Exam: Gen: AAOx3. NAD Abd: soft, Nt, ND. - Labs 02/17/17 06:04 02/17/17 09:22 Diabetes panel 02/17/17 Range/Units 09:22 Sodium 143 (137-145) mmol/L Potassium 3.3 L (3.6-5.0) mmol/L Chloride 97.0 L (98-107) mmol/L Carbon Dioxide 23 (22-30) mmol/L BUN 98 H (9-20) mg/dL Creatinine 5.7 H (0.8-1.5) mg/dL Glucose 151 H (75-100) mg/dL Calcium 7.9 L (8.4-10.2) mg/dL Calcium panel 02/17/17 Range/Units 09:22 Calcium 7.9 L (8.4-10.2) mg/dL Phosphorus 4.60 H (2.5-4.5) mg/dL Pituitary panel 02/17/17 Range/Units 09:22 Sodium 143 (137-145) mmol/L Potassium 3.3 L (3.6-5.0) mmol/L Chloride 97.0 L (98-107) mmol/L Carbon Dioxide 23 (22-30) mmol/L BUN 98 H (9-20) mg/dL Creatinine 5.7 H (0.8-1.5) mg/dL Glucose 151 H (75-100) mg/dL Calcium 7.9 L (8.4-10.2) mg/dL Adrenal panel 02/17/17 Range/Units 09:22 Sodium 143 (137-145) mmol/L Potassium 3.3 L (3.6-5.0) mmol/L Chloride 97.0 L (98-107) mmol/L Carbon Dioxide 23 (22-30) mmol/L BUN 98 H (9-20) mg/dL Creatinine 5.7 H (0.8-1.5) mg/dL Glucose 151 H (75-100) mg/dL Calcium 7.9 L (8.4-10.2) mg/dL
--- NOTE | 2017-02-17 12:28 | Progress Note ---
Assessment and Plan Assessment and plan: Patient is a 71 YO Man with HTN, CaP, HLD, DM presents to ED for evaluation. Pt states that he has experienced pain in his abdomen for the past 5 days with persistent symptoms over that same time frame. Pt stats that pain is 5/10, aching, no exacerbating or alleviating factors. Pt acknowledges flatus, and bowel movement, but states that he has urinated only 3 times in the past 4 days and that he does not have the urge to urinate. Pt acknowledges 2 episodes of nausea and vomiting over the past 12 hours. Pt denies fever, shaking chills, CP , palpitations, hematuria, dysuria, productive cough, or recent ill contacts. Pt seen and evaluted in the ED and found to have acute renal failure with a serum creatnine of 7.4, as well as evidence of sepsis. Nephrology consulted in ED, and patient initiated on sepsis protocol. 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 -BUN/Cr trending up. Hydrate with bicarb drip at 125 mls/hr. -Boykin ordered. Not put in yesterday. -Strict I/O -Renally dose all meds -Avoid nephrotoxic meds -Hold HCTZ/Lisinopril SBO (small bowel obstruction) Bowel rest Gen Surg Dr Holt following Hx of Prostate Cancer Continue flomax DVT prophylaxis Sub Q Heparin, SCDs New Issue: verbal report that 1 out of 2 bottles blood culture growing gram- negative rods, continue IV Zosyn, await report to stop iv vancomycin, RN to notify Dr. Jovani Fonseca, rinkman D/W Gen. Surgeon, Dr. Mazariegos, most likely from uti 02/16/17 Had vascath, going for Hemodialysis today 02/17/17 Tolerated HD well, start liquid diet per surgery History Interval history: Patient was seen and examined. Follow-up on current diagnosis/abdominal pain. Overnight uneventful. Patient denies any chest pain, shortness breath, nausea/ vomiting or severe headaches. Imaging, nursing note, chart, labs and old chart reviewed. Discussed with patient. Hospitalist Physical - Physical exam Narrative exam: GEN: WDWN, NAD, AWAKE, ALERT, ORIENTATED 3 HEENT: NCAT, EOMI, PERRL, OP Clear NECK: supple, no adenopathy, no thyromegaly, no JVD CVS/HEART: RRR, NORMAL S1S2, NO JVD, pulses present bilaterally CHEST/LUNGS: CTA B, Symmetrical chest expansion, good air entry bilaterally GI/Abdomen: soft, distended, hypoactive but improved bowel sounds, no guarding or rebound /Bladder: no suprapubic tenderness, no CVA or paraspinal tenderness EXT/Skin: no c/c/e, no obvious rash MSK: FROM x 4 Neuro: CN 2-12 grossly intact, no new focal deficits Psych: calm - Constitutional Vitals: Temp Pulse Resp BP Pulse Ox 98.3 F 85 18 134/88 96 02/17/17 10:05 02/17/17 12:17 02/17/17 10:05 02/17/17 12:17 02/17/17 07:37 General appearance: Present: no acute distress Results - Labs CBC & Chem 7: 02/17/17 06:04 02/17/17 09:22 Labs: Laboratory Last Values WBC 15.7 K/mm3 (4.5-11.0) H 02/17/17 06:04 RBC 4.65 M/mm3 (3.65-5.03) 02/17/17 06:04 Hgb 11.6 gm/dl (11.8-15.2) L 02/17/17 06:04 Hct 35.5 % (35.5-45.6) 02/17/17 06:04 MCV 77 fl (84-94) L 02/17/17 06:04 MCH 25 pg (28-32) L 02/17/17 06:04 MCHC 33 % (32-34) 02/17/17 06:04 RDW 14.9 % (13.2-15.2) 02/17/17 06:04 Plt Count 279 K/mm3 (140-440) 02/17/17 06:04 Lymph % (Auto) 2.2 % (13.4-35.0) L 02/15/17 05:19 [place] % (Auto) 8.0 % (0.0-7.3) H 02/15/17 05:19 Eos % (Auto) 1.4 % (0.0-4.3) 02/15/17 05:19 Baso % (Auto) 0.1 % (0.0-1.8) 02/15/17 05:19 Lymph # 0.3 K/mm3 (1.2-5.4) L 02/15/17 05:19 [place] # 1.1 K/mm3 (0.0-0.8) H 02/15/17 05:19 Eos # 0.2 K/mm3 (0.0-0.4) 02/15/17 05:19 Baso # 0.0 K/mm3 (0.0-0.1) 02/15/17 05:19 Seg Neutrophils % 88.3 % (40.0-70.0) H 02/15/17 05:19 Seg Neutrophils # 12.0 K/mm3 (1.8-7.7) H 02/15/17 05:19 Sodium 143 mmol/L (137-145) 02/17/17 09:22 Potassium 3.3 mmol/L (3.6-5.0) L 02/17/17 09:22 Chloride 97.0 mmol/L (98-107) L 02/17/17 09:22 Carbon Dioxide 23 mmol/L (22-30) 02/17/17 09:22 Anion Gap 26 mmol/L 02/17/17 09:22 BUN 98 mg/dL (9-20) H 02/17/17 09:22 Creatinine 5.7 mg/dL (0.8-1.5) H 02/17/17 09:22 Estimated GFR 12 ml/min 02/17/17 09:22 BUN/Creatinine Ratio 17 % 02/17/17 09:22 Glucose 151 mg/dL (75-100) H 02/17/17 09:22 POC Glucose 158 (70-105) H 02/17/17 11:34 Lactic Acid 2.50 mmol/L (0.7-2.0) H* 02/14/17 01:05 Calcium 7.9 mg/dL (8.4-10.2) L 02/17/17 09:22 Phosphorus 4.60 mg/dL (2.5-4.5) H 02/17/17 09:22 Magnesium 2.00 mg/dL (1.7-2.3) 02/17/17 09:22 Total Bilirubin 0.30 mg/dL (0.1-1.2) 02/16/17 05:34 AST 17 units/L (5-40) 02/16/17 05:34 ALT 35 units/L (7-56) 02/16/17 05:34 Alkaline Phosphatase 112 units/L (35-129) 02/16/17 05:34 Total Creatine Kinase 198 units/L (55-170) H 02/13/17 11:06 NT-Pro-B Natriuret Pep 256.4 pg/mL (0-900) 02/15/17 05:19 Total Protein 7.1 g/dL (6.3-8.2) 02/16/17 05:34 Albumin 3.5 g/dL (3.9-5) L 02/16/17 05:34 Albumin/Globulin Ratio 1.0 % 02/16/17 05:34 Lipase 21 units/L (13-60) 02/13/17 11:06 Urine Color Yellow (Yellow) 02/13/17 15:05 Urine Turbidity Clear (Clear) 02/13/17 15:05 Urine pH 5.0 (5.0-7.0) 02/13/17 15:05 Ur Specific [place] 1.020 (1.003-1.030) 02/13/17 15:05 Urine Protein 100 mg/dl mg/dL (Negative) 02/13/17 15:05 Urine Glucose (UA) 50 mg/dL (Negative) 02/13/17 15:05 Urine Ketones Neg mg/dL (Negative) 02/13/17 15:05 Urine Blood Sm (Negative) 02/13/17 15:05 Urine Nitrite Neg (Negative) 02/13/17 15:05 Urine Bilirubin Neg (Negative) 02/13/17 15:05 Urine Urobilinogen < 2.0 mg/dL (<2.0) 02/13/17 15:05 Ur Leukocyte Esterase Neg (Negative) 02/13/17 15:05 Urine WBC (Auto) 26.0 /HPF (0.0-6.0) H 02/13/17 15:05 Urine RBC (Auto) 5.0 /HPF (0.0-6.0) 02/13/17 15:05 U Epithel Cells (Auto) 1.0 /HPF (0-13.0) 02/13/17 15:05 Urine Bacteria (Auto) 1+ /HPF (Negative) 02/13/17 15:05 Hyaline Casts 3 /LPF 02/13/17 15:05 Urine Mucus Few /HPF 02/13/17 15:05 Urine Eosinophils None seen (None Seen) 02/13/17 15:05 Urine Creatinine 401.9 mg/dL (0.1-20.0) H 02/13/17 15:05 Protein/Creatinin Ratio 0.22 02/13/17 15:05 Urine Sodium 34 mmol/L 02/13/17 15:05 Urine Urea Nitrogen 181 02/13/17 15:05 Urine Total Protein 89 mg/dL (5-11.8) H 02/13/17 15:05 Hepatitis A IgM Ab Non-reactive (NonReactive) 02/16/17 11:30 Hep Bs Antigen Non-reactive (Negative) 02/16/17 11:30 Hep B Core IgM Ab Non-reactive (NonReactive) 02/16/17 11:30 Hepatitis C Antibody Non-reactive (NonReactive) 02/16/17 11:30
[2017-02-17] MEDS ORDERED: K-DUR PO ONE (13:00)
[2017-02-17] MEDS ORDERED: HEPARIN IV PRN ×2 (13:00→14:00)
[2017-02-17] MEDS ORDERED: HEPARIN ONE (13:16)
[2017-02-17] MEDS: HEPARIN SUB-Q SCH ×2 (13:45→22:24)
--- NOTE | 2017-02-17 14:18 | Progress Note ---
Assessment and Plan - Patient Problems (1) Acute renal failure Current Visit: Yes Status: Acute Plan to address problem: Renal function reviewed. GFR 12 ml/min today. Patient received first hemodialysis treatment yesterday. Patient scheduled to receive second hemodialysis treatment today Right IJ vasc cath intact Will assess dialysis needs daily Renally dose medications Monitor I/O's Avoid Nephrotoxic agents (2) Hypokalemia Current Visit: Yes Status: Acute Plan to address problem: Receiving IV KCL repletion today (3) Hypernatremia Current Visit: Yes Status: Acute Plan to address problem: Sodium level improved, now 143 today from 148 yesterday. Will discontinue D5 1/ 2 NS@ 100 ml/hr (4) SBO (small bowel obstruction) Current Visit: Yes Status: Acute Plan to address problem: On full liquid diet as per General Surgery Subjective Date of service: 02/17/17 Principal diagnosis: Renal failure Interval history: Patient seen lying in bed. Awake and alert. Objective - Vital Signs Vital signs: Vital Signs - 12hr 02/17/17 02/17/17 02/17/17 04:12 07:37 10:05 Temperature 98.2 F 98.1 F 98.3 F Pulse Rate 89 85 80 Respiratory 18 20 18 Rate Blood Pressure 119/66 98/71 138/82 O2 Sat by Pulse 94 96 Oximetry 02/17/17 02/17/17 02/17/17 10:07 10:15 10:30 Temperature Pulse Rate 86 78 77 Respiratory Rate Blood Pressure 131/87 130/68 150/81 O2 Sat by Pulse Oximetry 02/17/17 02/17/17 02/17/17 10:45 11:00 11:15 Temperature Pulse Rate 84 87 83 Respiratory Rate Blood Pressure 138/42 151/82 135/90 O2 Sat by Pulse Oximetry 02/17/17 02/17/17 02/17/17 11:32 11:49 12:04 Temperature Pulse Rate 84 85 92 H Respiratory Rate Blood Pressure 133/89 137/85 132/71 O2 Sat by Pulse Oximetry 02/17/17 02/17/17 12:17 12:35 Temperature 99.4 F Pulse Rate 85 85 Respiratory 18 Rate Blood Pressure 134/88 137/74 O2 Sat by Pulse Oximetry - General Appearance General appearance: well-developed, appears stated age EENT: ATNC, PERRL, hearing intact, vision intact Neck: no JVD, supple Respiratory: Present: Decreased Breath Sounds Cardiology: regular, S1S2 Gastrointestinal: normoactive bowel sounds Integumentary: warm and dry Neurologic: alert and oriented x3 Musculoskeletal: no deformities, no erythema, no cyanosis, no clubbing Psychiatric: mood/affect appropriate, cooperative - Lab 02/17/17 06:04 02/17/17 09:22 Most recent lab results Calcium 7.9 mg/dL (8.4-10.2) L 02/17/17 09:22 Phosphorus 4.60 mg/dL (2.5-4.5) H 02/17/17 09:22 Magnesium 2.00 mg/dL (1.7-2.3) 02/17/17 09:22 Urine Creatinine 401.9 mg/dL (0.1-20.0) H 02/13/17 15:05 Urine Sodium 34 mmol/L 02/13/17 15:05 Urine Total Protein 89 mg/dL (5-11.8) H 02/13/17 15:05
[2017-02-17] MEDS: KCL 10MEQ/100ML 10 MEQ/100 ML BAG IV SCH ×2 (15:01→17:07)
[2017-02-17] MEDS ORDERED: VANCOMYCIN 1,500 MG in NACL 0.9% 500 ML 500 ML IV ONE (16:00)
[2017-02-17] MEDS: PROTONIX IV SCH (16:01)
[2017-02-18] MEDS: NOVOLOG SUB-Q SCH ×4 (03:21→19:59)
[2017-02-18] MEDS: ZOSYN/NS 2.25 GM/50ML 2.25 GM/50 ML BAG IV SCH ×3 (05:55→22:41)
[2017-02-18 06:14] LABS: Hematocrit 34.7 % (35.5-45.6); Mean Corpuscular HGB Conc 32 % (32-34); Mean Corpuscular Volume 78 fl (84-94); Platelet Count 252 K/mm3 (140-440); Red Blood Count 4.47 M/mm3 (3.65-5.03); Red Cell Distribution Width 14.6 % (13.2-15.2); White Blood Count 18.2 K/mm3 (4.5-11.0)
[2017-02-18 06:16] LABS: Mean Corpuscular Hemoglobin 25 pg (28-32)
[2017-02-18 06:28] LABS: Albumin 3.1 g/dL (3.9-5); Albumin/Globulin Ratio 0.8 %; Bilirubin,Total 0.4 mg/dL (0.1-1.2); Calcium 8.9 mg/dL (8.4-10.2); Chloride 101.4 mmol/L (98-107); Potassium 3.3 mmol/L (3.6-5.0); Total Protein 6.8 g/dL (6.3-8.2)
[2017-02-18] MEDS: HEPARIN SUB-Q SCH ×2 (10:11→22:41)
--- NOTE | 2017-02-18 10:45 | Progress Note ---
Assessment and Plan (1) severe renal failure Plan to address problem: no indication for HD today will assess dialysis needs daily and monitor renal recovery closely will d/c vicente Right IJ vasc cath intact Will assess dialysis needs daily Renally dose medications Monitor I/O's Avoid Nephrotoxic agents (2) Hypokalemia Current Visit: Yes Status: Acute Plan to address problem: replete as needed (3) Hypernatremia Current Visit: Yes Status: Acute Plan to address problem: resolved (4) SBO (small bowel obstruction) Current Visit: Yes Status: Acute Plan to address problem: advancing diet as tolerated per General Surgery Subjective Date of service: 02/18/17 Principal diagnosis: Renal failure Interval history: tolerated HD well yesterday Objective - Vital Signs Vital signs: Vital Signs - 12hr 02/18/17 02/18/17 00:27 04:08 Temperature 99.9 F H 98.9 F Pulse Rate 98 H 100 H Respiratory 18 16 Rate Blood Pressure 104/71 103/63 O2 Sat by Pulse 95 94 Oximetry - General Appearance General appearance: well-developed, well-nourished, appears stated age EENT: ATNC, PERRL, mucous membranes moist Neck: no JVD, no carotid bruit Respiratory: Present: Clear to Ascultation. Absent: Rales, Ronchi Cardiology: regular, S1S2 Gastrointestinal: normoactive bowel sounds, no tenderness, no distended, no masses Integumentary: no rash, warm and dry Neurologic: no focal deficit, no asterixis, alert and oriented x3 Musculoskeletal: other (no edema in BLE) Psychiatric: mood/affect appropriate, cooperative - Lab 02/18/17 05:28 02/18/17 05:28 Most recent lab results Calcium 8.9 mg/dL (8.4-10.2) 02/18/17 05:28 Phosphorus 4.60 mg/dL (2.5-4.5) H 02/17/17 09:22 Magnesium 2.00 mg/dL (1.7-2.3) 02/17/17 09:22 Urine Creatinine 401.9 mg/dL (0.1-20.0) H 02/13/17 15:05 Urine Sodium 34 mmol/L 02/13/17 15:05 Urine Total Protein 89 mg/dL (5-11.8) H 02/13/17 15:05
[2017-02-18] MEDS ORDERED: K-DUR PO ONE (11:00)
--- NOTE | 2017-02-18 11:50 | Progress Note ---
Assessment and Plan Assessment and plan: Patient is a 71 YO Man with HTN, CaP, HLD, DM presents to ED for evaluation. Pt states that he has experienced pain in his abdomen for the past 5 days with persistent symptoms over that same time frame. Pt stats that pain is 5/10, aching, no exacerbating or alleviating factors. Pt acknowledges flatus, and bowel movement, but states that he has urinated only 3 times in the past 4 days and that he does not have the urge to urinate. Pt acknowledges 2 episodes of nausea and vomiting over the past 12 hours. Pt denies fever, shaking chills, CP , palpitations, hematuria, dysuria, productive cough, or recent ill contacts. Pt seen and evaluted in the ED and found to have acute renal failure with a serum creatnine of 7.4, as well as evidence of sepsis. Nephrology consulted in ED, and patient initiated on sepsis protocol. 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 -BUN/Cr trending up. Hydrate with bicarb drip at 125 mls/hr. -Boy[place] ordered. Not put in yesterday. -Strict I/O -Renally dose all meds -Avoid nephrotoxic meds -Hold HCTZ/Lisinopril SBO (small bowel obstruction) Bowel rest Gen Surg Dr Holt following Hx of Prostate Cancer Continue flomax DVT prophylaxis Sub Q Heparin, SCDs New Issue: verbal report that 1 out of 2 bottles blood culture growing gram- negative rods, continue IV Zosyn, await report to stop iv vancomycin, RN to notify Dr. Jovani Fonseca, information assurance engineer D/W Gen. Surgeon, Dr. Mazariegos, most likely from uti 02/16/17 Had vascath, going for Hemodialysis today 02/17/17 Tolerated HD well, start liquid diet per surgery 02/18/17: tolerated diet, had bowel movement this morning, wants to go home, at bedside. long discussion regarding disposition and plan of care History Interval history: Patient was seen and examined. Follow-up on current diagnosis/abdominal pain. Overnight uneventful. Patient denies any chest pain, shortness breath, nausea/ vomiting or severe headaches. Imaging, nursing note, chart, labs and old chart reviewed. Discussed with patient. Hospitalist Physical - Physical exam Narrative exam: GEN: WDWN, NAD, AWAKE, ALERT, ORIENTATED 3 HEENT: NCAT, EOMI, PERRL, OP Clear NECK: supple, no adenopathy, no thyromegaly, no JVD CVS/HEART: RRR, NORMAL S1S2, NO JVD, pulses present bilaterally CHEST/LUNGS: CTA B, Symmetrical chest expansion, good air entry bilaterally GI/Abdomen: soft, distended, hypoactive but improved bowel sounds, no guarding or rebound /Bladder: no suprapubic tenderness, no CVA or paraspinal tenderness EXT/Skin: no c/c/e, no obvious rash MSK: FROM x 4 Neuro: CN 2-12 grossly intact, no new focal deficits Psych: calm - Constitutional Vitals: Temp Pulse Resp BP Pulse Ox 98.9 F 100 H 16 103/63 94 02/18/17 04:08 02/18/17 04:08 02/18/17 04:08 02/18/17 04:08 02/18/17 04:08 General appearance: Present: no acute distress Results - Labs CBC & Chem 7: 02/18/17 05:28 02/18/17 05:28 Labs: Laboratory Last Values WBC 18.2 K/mm3 (4.5-11.0) H 02/18/17 05:28 RBC 4.47 M/mm3 (3.65-5.03) 02/18/17 05:28 Hgb 11.0 gm/dl (11.8-15.2) L 02/18/17 05:28 Hct 34.7 % (35.5-45.6) L 02/18/17 05:28 MCV 78 fl (84-94) L 02/18/17 05:28 MCH 25 pg (28-32) L 02/18/17 05:28 MCHC 32 % (32-34) 02/18/17 05:28 RDW 14.6 % (13.2-15.2) 02/18/17 05:28 Plt Count 252 K/mm3 (140-440) 02/18/17 05:28 Lymph % (Auto) 2.2 % (13.4-35.0) L 02/15/17 05:19 [place] % (Auto) 8.0 % (0.0-7.3) H 02/15/17 05:19 Eos % (Auto) 1.4 % (0.0-4.3) 02/15/17 05:19 Baso % (Auto) 0.1 % (0.0-1.8) 02/15/17 05:19 Lymph # 0.3 K/mm3 (1.2-5.4) L 02/15/17 05:19 [place] # 1.1 K/mm3 (0.0-0.8) H 02/15/17 05:19 Eos # 0.2 K/mm3 (0.0-0.4) 02/15/17 05:19 Baso # 0.0 K/mm3 (0.0-0.1) 02/15/17 05:19 Seg Neutrophils % 88.3 % (40.0-70.0) H 02/15/17 05:19 Seg Neutrophils # 12.0 K/mm3 (1.8-7.7) H 02/15/17 05:19 Sodium 145 mmol/L (137-145) 02/18/17 05:28 Potassium 3.3 mmol/L (3.6-5.0) L 02/18/17 05:28 Chloride 101.4 mmol/L (98-107) 02/18/17 05:28 Carbon Dioxide 23 mmol/L (22-30) 02/18/17 05:28 Anion Gap 24 mmol/L 02/18/17 05:28 BUN 64 mg/dL (9-20) H 02/18/17 05:28 Creatinine 4.0 mg/dL (0.8-1.5) H 02/18/17 05:28 Estimated GFR 18 ml/min 02/18/17 05:28 BUN/Creatinine Ratio 16 % 02/18/17 05:28 Glucose 126 mg/dL (75-100) H 02/18/17 05:28 POC Glucose 144 (70-105) H 02/18/17 05:03 Lactic Acid 2.50 mmol/L (0.7-2.0) H* 02/14/17 01:05 Calcium 8.9 mg/dL (8.4-10.2) 02/18/17 05:28 Phosphorus 4.60 mg/dL (2.5-4.5) H 02/17/17 09:22 Magnesium 2.00 mg/dL (1.7-2.3) 02/17/17 09:22 Total Bilirubin 0.40 mg/dL (0.1-1.2) 02/18/17 05:28 AST 15 units/L (5-40) 02/18/17 05:28 ALT 21 units/L (7-56) 02/18/17 05:28 Alkaline Phosphatase 94 units/L (35-129) 02/18/17 05:28 Total Creatine Kinase 198 units/L (55-170) H 02/13/17 11:06 NT-Pro-B Natriuret Pep 256.4 pg/mL (0-900) 02/15/17 05:19 Total Protein 6.8 g/dL (6.3-8.2) 02/18/17 05:28 Albumin 3.1 g/dL (3.9-5) L 02/18/17 05:28 Albumin/Globulin Ratio 0.8 % 02/18/17 05:28 Lipase 21 units/L (13-60) 02/13/17 11:06 Urine Color Yellow (Yellow) 02/13/17 15:05 Urine Turbidity Clear (Clear) 02/13/17 15:05 Urine pH 5.0 (5.0-7.0) 02/13/17 15:05 Ur Specific [place] 1.020 (1.003-1.030) 02/13/17 15:05 Urine Protein 100 mg/dl mg/dL (Negative) 02/13/17 15:05 Urine Glucose (UA) 50 mg/dL (Negative) 02/13/17 15:05 Urine Ketones Neg mg/dL (Negative) 02/13/17 15:05 Urine Blood Sm (Negative) 02/13/17 15:05 Urine Nitrite Neg (Negative) 02/13/17 15:05 Urine Bilirubin Neg (Negative) 02/13/17 15:05 Urine Urobilinogen < 2.0 mg/dL (<2.0) 02/13/17 15:05 Ur Leukocyte Esterase Neg (Negative) 02/13/17 15:05 Urine WBC (Auto) 26.0 /HPF (0.0-6.0) H 02/13/17 15:05 Urine RBC (Auto) 5.0 /HPF (0.0-6.0) 02/13/17 15:05 U Epithel Cells (Auto) 1.0 /HPF (0-13.0) 02/13/17 15:05 Urine Bacteria (Auto) 1+ /HPF (Negative) 02/13/17 15:05 Hyaline Casts 3 /LPF 02/13/17 15:05 Urine Mucus Few /HPF 02/13/17 15:05 Urine Eosinophils None seen (None Seen) 02/13/17 15:05 Urine Creatinine 401.9 mg/dL (0.1-20.0) H 02/13/17 15:05 Protein/Creatinin Ratio 0.22 02/13/17 15:05 Urine Sodium 34 mmol/L 02/13/17 15:05 Urine Urea Nitrogen 181 02/13/17 15:05 Urine Total Protein 89 mg/dL (5-11.8) H 02/13/17 15:05 Hepatitis A IgM Ab Non-reactive (NonReactive) 02/16/17 11:30 Hep Bs Antigen Non-reactive (Negative) 02/16/17 11:30 Hep B Core IgM Ab Non-reactive (NonReactive) 02/16/17 11:30 Hepatitis C Antibody Non-reactive (NonReactive) 02/16/17 11:30
--- NOTE | 2017-02-18 12:12 | Progress Note ---
Assessment and Plan 71 yo M with 1. SBO 2. hx prostate ca s/p radiation 3. LINDA/ATN 4. leukocytosis 5. hypokalemia 6. Sepsis -> g neg rods in Blcx 1 bottle 7. UTI Plan: 1. adv to soft diet today 2. OOB/ambulate 3. DVT/GI ppx 4. replace lytes 5. continue HD per nephro 6. dc vicente per nephro 7. c/w abx per 1', monitor WBC, repeat blcx negative so far Subjective Date of service: 02/18/17 Narrative: Pt seen and examined. No complaints. No n/v, abd pain. Tolerated full liquid diet. + BM and flatus. Objective Vital Signs - 12hr 02/18/17 02/18/17 00:27 04:08 Temperature 99.9 F H 98.9 F Pulse Rate 98 H 100 H Respiratory 18 16 Rate Blood Pressure 104/71 103/63 O2 Sat by Pulse 95 94 Oximetry - General physical appearance Narrative Exam: Gen: AAOx3. NAD Abd: soft, NT, mildly distended. no r/r/g - Labs 02/18/17 05:28 02/18/17 05:28 Diabetes panel 02/18/17 Range/Units 05:28 Sodium 145 (137-145) mmol/L Potassium 3.3 L (3.6-5.0) mmol/L Chloride 101.4 (98-107) mmol/L Carbon Dioxide 23 (22-30) mmol/L BUN 64 H (9-20) mg/dL Creatinine 4.0 H (0.8-1.5) mg/dL Glucose 126 H (75-100) mg/dL Calcium 8.9 (8.4-10.2) mg/dL AST 15 (5-40) units/L ALT 21 (7-56) units/L Alkaline Phosphatase 94 (35-129) units/L Total Protein 6.8 (6.3-8.2) g/dL Albumin 3.1 L (3.9-5) g/dL Calcium panel 02/18/17 Range/Units 05:28 Calcium 8.9 (8.4-10.2) mg/dL Albumin 3.1 L (3.9-5) g/dL Pituitary panel 02/18/17 Range/Units 05:28 Sodium 145 (137-145) mmol/L Potassium 3.3 L (3.6-5.0) mmol/L Chloride 101.4 (98-107) mmol/L Carbon Dioxide 23 (22-30) mmol/L BUN 64 H (9-20) mg/dL Creatinine 4.0 H (0.8-1.5) mg/dL Glucose 126 H (75-100) mg/dL Calcium 8.9 (8.4-10.2) mg/dL Adrenal panel 02/18/17 Range/Units 05:28 Sodium 145 (137-145) mmol/L Potassium 3.3 L (3.6-5.0) mmol/L Chloride 101.4 (98-107) mmol/L Carbon Dioxide 23 (22-30) mmol/L BUN 64 H (9-20) mg/dL Creatinine 4.0 H (0.8-1.5) mg/dL Glucose 126 H (75-100) mg/dL Calcium 8.9 (8.4-10.2) mg/dL Total Bilirubin 0.40 (0.1-1.2) mg/dL AST 15 (5-40) units/L ALT 21 (7-56) units/L Alkaline Phosphatase 94 (35-129) units/L Total Protein 6.8 (6.3-8.2) g/dL Albumin 3.1 L (3.9-5) g/dL
[2017-02-19 06:44] LABS: Hematocrit 33.7 % (35.5-45.6); Mean Corpuscular HGB Conc 33 % (32-34); Mean Corpuscular Volume 78 fl (84-94); Platelet Count 242 K/mm3 (140-440); Red Blood Count 4.31 M/mm3 (3.65-5.03); Red Cell Distribution Width 15.2 % (13.2-15.2)
[2017-02-19 06:45] LABS: Mean Corpuscular Hemoglobin 26 pg (28-32)
[2017-02-19 07:06] LABS: Chloride 100.4 mmol/L (98-107); Potassium 3.1 mmol/L (3.6-5.0)
[2017-02-19] MEDS: ZOSYN/NS 2.25 GM/50ML 2.25 GM/50 ML BAG IV SCH ×3 (08:23→22:03)
[2017-02-19] MEDS: NOVOLOG SUB-Q SCH ×2 (08:25→13:47)
[2017-02-19] MEDS ORDERED: K-DUR PO ONE (09:00)
[2017-02-19] MEDS: HEPARIN SUB-Q SCH ×2 (09:53→22:03)
--- NOTE | 2017-02-19 13:10 | Progress Note ---
Assessment and Plan Assessment and plan: Patient is a 71 YO Man with HTN, CaP, HLD, DM presents to ED for evaluation. Pt states that he has experienced pain in his abdomen for the past 5 days with persistent symptoms over that same time frame. Pt stats that pain is 5/10, aching, no exacerbating or alleviating factors. Pt acknowledges flatus, and bowel movement, but states that he has urinated only 3 times in the past 4 days and that he does not have the urge to urinate. Pt acknowledges 2 episodes of nausea and vomiting over the past 12 hours. Pt denies fever, shaking chills, CP , palpitations, hematuria, dysuria, productive cough, or recent ill contacts. Pt seen and evaluted in the ED and found to have acute renal failure with a serum creatnine of 7.4, as well as evidence of sepsis. Nephrology consulted in ED, and patient initiated on sepsis protocol. CT Abdomen/pelvis done to evaluate for intraabdominal source of sepsis versus urinary obstruction, but patient found to have partial bowel obstruction Sepsis UTI treated with abx, sepsis resolved Diabetes Mellitus ADA diet, SSI insulin, accu check Hold metformin LINDA, Vasomotor nephropathy with ATN present on admission Nephrology following Hemodialysis started SBO (small bowel obstruction) Bowel rest Gen Surg Dr Holt following Hx of Prostate Cancer Continue flomax DVT prophylaxis Sub Q Heparin, SCDs New Issue: verbal report that 1 out of 2 bottles blood culture growing gram- negative rods, continue IV Zosyn, await report to stop iv vancomycin, RN to notify Dr. Jovani Fonseca, manager software development D/W Gen. Surgeon, Dr. Mazariegos, most likely from uti 02/16/17 Had vascath, going for Hemodialysis today 02/17/17 Tolerated HD well, start liquid diet per surgery 02/18/17: tolerated diet, had bowel movement this morning, wants to go home, at bedside. long discussion regarding disposition and plan of care 02/19/17: SBO resolved, await Nephrology clearance for discharge, ?needing outpatient hemodialysis. On IV zosyn day 7 which is last day History Interval history: Patient was seen and examined. Follow-up on current diagnosis/abdominal pain. Overnight uneventful. Patient denies any chest pain, shortness breath, nausea/ vomiting or severe headaches. Imaging, nursing note, chart, labs and old chart reviewed. Discussed with patient. Hospitalist Physical - Physical exam Narrative exam: GEN: WDWN, NAD, AWAKE, ALERT, ORIENTATED 3 HEENT: NCAT, EOMI, PERRL, OP Clear NECK: supple, no adenopathy, no thyromegaly, no JVD CVS/HEART: RRR, NORMAL S1S2, NO JVD, pulses present bilaterally CHEST/LUNGS: CTA B, Symmetrical chest expansion, good air entry bilaterally GI/Abdomen: soft, distended, hypoactive but improved bowel sounds, no guarding or rebound /Bladder: no suprapubic tenderness, no CVA or paraspinal tenderness EXT/Skin: no c/c/e, no obvious rash MSK: FROM x 4 Neuro: CN 2-12 grossly intact, no new focal deficits Psych: calm - Constitutional Vitals: Temp Pulse Resp BP Pulse Ox 98.0 F 91 H 18 128/88 96 02/19/17 11:08 02/19/17 11:08 02/19/17 11:08 02/19/17 11:08 02/19/17 11:08 General appearance: Present: no acute distress Results - Labs CBC & Chem 7: 02/19/17 05:50 02/19/17 05:50 Labs: Laboratory Last Values WBC 19.0 K/mm3 (4.5-11.0) H 02/19/17 05:50 RBC 4.31 M/mm3 (3.65-5.03) 02/19/17 05:50 Hgb 11.0 gm/dl (11.8-15.2) L 02/19/17 05:50 Hct 33.7 % (35.5-45.6) L 02/19/17 05:50 MCV 78 fl (84-94) L 02/19/17 05:50 MCH 26 pg (28-32) L 02/19/17 05:50 MCHC 33 % (32-34) 02/19/17 05:50 RDW 15.2 % (13.2-15.2) 02/19/17 05:50 Plt Count 242 K/mm3 (140-440) 02/19/17 05:50 Lymph % (Auto) 2.2 % (13.4-35.0) L 02/15/17 05:19 [place] % (Auto) 8.0 % (0.0-7.3) H 02/15/17 05:19 Eos % (Auto) 1.4 % (0.0-4.3) 02/15/17 05:19 Baso % (Auto) 0.1 % (0.0-1.8) 02/15/17 05:19 Lymph # 0.3 K/mm3 (1.2-5.4) L 02/15/17 05:19 [place] # 1.1 K/mm3 (0.0-0.8) H 02/15/17 05:19 Eos # 0.2 K/mm3 (0.0-0.4) 02/15/17 05:19 Baso # 0.0 K/mm3 (0.0-0.1) 02/15/17 05:19 Seg Neutrophils % 88.3 % (40.0-70.0) H 02/15/17 05:19 Seg Neutrophils # 12.0 K/mm3 (1.8-7.7) H 02/15/17 05:19 Sodium 142 mmol/L (137-145) 02/19/17 05:50 Potassium 3.1 mmol/L (3.6-5.0) L 02/19/17 05:50 Chloride 100.4 mmol/L (98-107) 02/19/17 05:50 Carbon Dioxide 22 mmol/L (22-30) 02/19/17 05:50 Anion Gap 23 mmol/L 02/19/17 05:50 BUN 69 mg/dL (9-20) H 02/19/17 05:50 Creatinine 3.6 mg/dL (0.8-1.5) H 02/19/17 05:50 Estimated GFR 20 ml/min 02/19/17 05:50 BUN/Creatinine Ratio 19 % 02/19/17 05:50 Glucose 127 mg/dL (75-100) H 02/19/17 05:50 POC Glucose 137 (70-105) H 02/19/17 11:12 Lactic Acid 2.50 mmol/L (0.7-2.0) H* 02/14/17 01:05 Calcium 9.0 mg/dL (8.4-10.2) 02/19/17 05:50 Phosphorus 4.60 mg/dL (2.5-4.5) H 02/17/17 09:22 Magnesium 2.00 mg/dL (1.7-2.3) 02/17/17 09:22 Total Bilirubin 0.40 mg/dL (0.1-1.2) 02/18/17 05:28 AST 15 units/L (5-40) 02/18/17 05:28 ALT 21 units/L (7-56) 02/18/17 05:28 Alkaline Phosphatase 94 units/L (35-129) 02/18/17 05:28 Total Creatine Kinase 198 units/L (55-170) H 02/13/17 11:06 NT-Pro-B Natriuret Pep 256.4 pg/mL (0-900) 02/15/17 05:19 Total Protein 6.8 g/dL (6.3-8.2) 02/18/17 05:28 Albumin 3.1 g/dL (3.9-5) L 02/18/17 05:28 Albumin/Globulin Ratio 0.8 % 02/18/17 05:28 Lipase 21 units/L (13-60) 02/13/17 11:06 Urine Color Yellow (Yellow) 02/13/17 15:05 Urine Turbidity Clear (Clear) 02/13/17 15:05 Urine pH 5.0 (5.0-7.0) 02/13/17 15:05 Ur Specific [place] 1.020 (1.003-1.030) 02/13/17 15:05 Urine Protein 100 mg/dl mg/dL (Negative) 02/13/17 15:05 Urine Glucose (UA) 50 mg/dL (Negative) 02/13/17 15:05 Urine Ketones Neg mg/dL (Negative) 02/13/17 15:05 Urine Blood Sm (Negative) 02/13/17 15:05 Urine Nitrite Neg (Negative) 02/13/17 15:05 Urine Bilirubin Neg (Negative) 02/13/17 15:05 Urine Urobilinogen < 2.0 mg/dL (<2.0) 02/13/17 15:05 Ur Leukocyte Esterase Neg (Negative) 02/13/17 15:05 Urine WBC (Auto) 26.0 /HPF (0.0-6.0) H 02/13/17 15:05 Urine RBC (Auto) 5.0 /HPF (0.0-6.0) 02/13/17 15:05 U Epithel Cells (Auto) 1.0 /HPF (0-13.0) 02/13/17 15:05 Urine Bacteria (Auto) 1+ /HPF (Negative) 02/13/17 15:05 Hyaline Casts 3 /LPF 02/13/17 15:05 Urine Mucus Few /HPF 02/13/17 15:05 Urine Eosinophils None seen (None Seen) 02/13/17 15:05 Urine Creatinine 401.9 mg/dL (0.1-20.0) H 02/13/17 15:05 Protein/Creatinin Ratio 0.22 02/13/17 15:05 Urine Sodium 34 mmol/L 02/13/17 15:05 Urine Urea Nitrogen 181 02/13/17 15:05 Urine Total Protein 89 mg/dL (5-11.8) H 02/13/17 15:05 Hepatitis A IgM Ab Non-reactive (NonReactive) 02/16/17 11:30 Hep Bs Antigen Non-reactive (Negative) 02/16/17 11:30 Hep B Core IgM Ab Non-reactive (NonReactive) 02/16/17 11:30 Hepatitis C Antibody Non-reactive (NonReactive) 02/16/17 11:30
--- NOTE | 2017-02-19 14:24 | Progress Note ---
Assessment and Plan Acute Kidney injury likely ATN from NSAIDs/Prerenal: -Unknown CKD as no BL Cr available -Has been on ibuprofen 800 mg TID for the last 1 month for hip pain -Possibly may have ATN from it. -CT abdomen -ve for hydronephrosis. -Initiated on HD on Friday. Had HD#2 on Friday. Cr now trending down. No HD today. Will eval daily. -Strict I/O -Renally dose all meds -Avoid nephrotoxic meds -Hold HCTZ/Lisinopril Small bowel obstruction: -On CT. GS Dr Mazariegos on board. Per her. Hypernatremia, Hypertonic: -Resolved. Hypokalemia: -Replace gently in the setting of ARF. Essential hypertension: -Hold all BP meds as BP low. -Avoid [place] inh/ARBs including lisinopril Metabolic acidosis: -On IHD. Sepsis possibly due to UTI: Leukocytosis: -On Abx, per primary -Urine Cx ordered -Blood Cx drawn. Growing GNR. Repeat Blood Cx from 02/13 show NGTN. Diabetes mellitus type 2 on metformin at home: -Hold home metformin -Per primary Hyperlipidemia, chronic: -Statin. History of prostate cancer s/p surgery: -Can continue home flomax Plan d/w pt at bedside. Jovani Fonseca MD Nephrology, Hypertension, Dialysis, Transplantation Phone no: [phone] Subjective Date of service: 02/19/17 Principal diagnosis: Renal failure Interval history: Denies CP/SHOB. s/p HD Friday. Making urine now. Objective - Exam Narrative Exam: GE:AAOX3 HEENT: PERRLA Neck: No JVD CVS: RRR, Rt IJ VC Chest: CTAB Abd: Distended, Mild TTP Ext: No cce Neuro: AAOX3 - Vital Signs Vital signs: Vital Signs - 12hr 02/19/17 02/19/17 02/19/17 04:34 06:45 07:44 Temperature 98.3 F 98.2 F Pulse Rate 107 H 94 H Respiratory 18 18 Rate Respiratory 20 Rate [Right Abdomen] Blood Pressure 171/110 146/86 O2 Sat by Pulse 95 96 Oximetry 02/19/17 11:08 Temperature 98.0 F Pulse Rate 91 H Respiratory 18 Rate Respiratory Rate [Right Abdomen] Blood Pressure 128/88 O2 Sat by Pulse 96 Oximetry - Lab 02/19/17 05:50 02/19/17 05:50 Most recent lab results Calcium 9.0 mg/dL (8.4-10.2) 02/19/17 05:50 Phosphorus 4.60 mg/dL (2.5-4.5) H 02/17/17 09:22 Magnesium 2.00 mg/dL (1.7-2.3) 02/17/17 09:22 Urine Creatinine 401.9 mg/dL (0.1-20.0) H 02/13/17 15:05 Urine Sodium 34 mmol/L 02/13/17 15:05 Urine Total Protein 89 mg/dL (5-11.8) H 02/13/17 15:05
[2017-02-20] MEDS: NOVOLOG SUB-Q SCH ×6 (00:13→19:46)
[2017-02-20] MEDS: ZOSYN/NS 2.25 GM/50ML 2.25 GM/50 ML BAG IV SCH ×3 (06:10→21:51)
[2017-02-20 06:28] LABS: Hematocrit 37.9 % (35.5-45.6); Hemoglobin 11.7 gm/dl (11.8-15.2); Mean Corpuscular HGB Conc 31 % (32-34); Mean Corpuscular Volume 78 fl (84-94); Platelet Count 293 K/mm3 (140-440); Red Blood Count 4.84 M/mm3 (3.65-5.03); Red Cell Distribution Width 15.1 % (13.2-15.2); White Blood Count 16.8 K/mm3 (4.5-11.0)
[2017-02-20 06:29] LABS: Mean Corpuscular Hemoglobin 24 pg (28-32)
[2017-02-20 06:42] LABS: Calcium 9.2 mg/dL (8.4-10.2); Chloride 104.4 mmol/L (98-107)
[2017-02-20 06:57] LABS: Potassium 3.8 mmol/L (3.6-5.0)
--- NOTE | 2017-02-20 10:21 | Progress Note ---
Assessment and Plan 71 yo M with 1. SBO 2. hx prostate ca s/p radiation 3. LINDA/ATN 4. leukocytosis 5. hypokalemia 6. Sepsis -> g neg rods in Blcx 1 bottle 7. UTI Plan: 1. continue Gi soft diet 2. OOB/ambulate 3. DVT/GI ppx 4. HD per nephro 5. dc planning per 1' Will sign off, please call with any questions. Thank you for this consultation. D/W Dr. Salgado. Subjective Date of service: 02/20/17 Narrative: Pt seen and examined. No complaints. Tolerating diet. No n/v. + BM and flatus. + ambulating and urinating on his own. No f/c. Objective Vital Signs - 12hr 02/20/17 02/20/17 02/20/17 03:47 04:43 06:53 Temperature 97.9 F Pulse Rate 100 H Respiratory 20 18 Rate Respiratory 20 Rate [Right Abdomen] Blood Pressure 157/97 O2 Sat by Pulse 97 Oximetry 02/20/17 07:53 Temperature 98.0 F Pulse Rate 96 H Respiratory 18 Rate Respiratory Rate [Right Abdomen] Blood Pressure 167/97 O2 Sat by Pulse 96 Oximetry - General physical appearance Narrative Exam: Gen: AAOx3. NAD Abd: soft, mildly distended, NT. No r/r/g - Labs 02/20/17 05:50 02/20/17 05:50 Diabetes panel 02/20/17 Range/Units 05:50 Sodium 146 H (137-145) mmol/L Potassium 3.8 D (3.6-5.0) mmol/L Chloride 104.4 (98-107) mmol/L Carbon Dioxide 21 L (22-30) mmol/L BUN 65 H (9-20) mg/dL Creatinine 3.1 H (0.8-1.5) mg/dL Glucose 135 H (75-100) mg/dL Calcium 9.2 (8.4-10.2) mg/dL Calcium panel 02/20/17 Range/Units 05:50 Calcium 9.2 (8.4-10.2) mg/dL Pituitary panel 02/20/17 Range/Units 05:50 Sodium 146 H (137-145) mmol/L Potassium 3.8 D (3.6-5.0) mmol/L Chloride 104.4 (98-107) mmol/L Carbon Dioxide 21 L (22-30) mmol/L BUN 65 H (9-20) mg/dL Creatinine 3.1 H (0.8-1.5) mg/dL Glucose 135 H (75-100) mg/dL Calcium 9.2 (8.4-10.2) mg/dL Adrenal panel 02/20/17 Range/Units 05:50 Sodium 146 H (137-145) mmol/L Potassium 3.8 D (3.6-5.0) mmol/L Chloride 104.4 (98-107) mmol/L Carbon Dioxide 21 L (22-30) mmol/L BUN 65 H (9-20) mg/dL Creatinine 3.1 H (0.8-1.5) mg/dL Glucose 135 H (75-100) mg/dL Calcium 9.2 (8.4-10.2) mg/dL
--- NOTE | 2017-02-20 11:08 | Progress Note ---
Assessment and Plan - Patient Problems (1) Acute renal failure Current Visit: Yes Status: Acute Plan to address problem: Renal function reviewed. Serum creatinine trend down to 3.1 from 3.6 yesterday Dialysis remains on hold, if renal function continues to improve within the next 24-48 hours then will remove vasc cath at that point. Right IJ vasc cath intact Will assess dialysis needs daily Renally dose medications Monitor I/O's Avoid Nephrotoxic agents (2) Hypokalemia Current Visit: Yes Status: Acute Plan to address problem: Resolved (3) SBO (small bowel obstruction) Current Visit: Yes Status: Acute Plan to address problem: Now on soft diet as per General Surgery (4) Hypertension Current Visit: Yes Status: Acute Plan to address problem: Start Coreg 6.25 mg po BID Subjective Date of service: 02/20/17 Principal diagnosis: Renal failure Interval history: Patient seen sitting up at edge of bed. States feeling well. Objective - Vital Signs Vital signs: Vital Signs - 12hr 02/20/17 02/20/17 02/20/17 03:47 04:43 06:53 Temperature 97.9 F Pulse Rate 100 H Respiratory 20 18 Rate Respiratory 20 Rate [Right Abdomen] Blood Pressure 157/97 O2 Sat by Pulse 97 Oximetry 02/20/17 07:53 Temperature 98.0 F Pulse Rate 96 H Respiratory 18 Rate Respiratory Rate [Right Abdomen] Blood Pressure 167/97 O2 Sat by Pulse 96 Oximetry - General Appearance General appearance: well-developed, appears stated age EENT: ATNC, PERRL, hearing intact, vision intact Neck: no JVD, no thyromegaly Respiratory: Present: Decreased Breath Sounds Cardiology: regular, S1S2 Gastrointestinal: normoactive bowel sounds Integumentary: warm and dry Neurologic: alert and oriented x3 Musculoskeletal: other (mild edema to BLE) Psychiatric: cooperative - Lab 02/20/17 05:50 02/20/17 05:50 Most recent lab results Calcium 9.2 mg/dL (8.4-10.2) 02/20/17 05:50 Phosphorus 4.60 mg/dL (2.5-4.5) H 02/17/17 09:22 Magnesium 2.00 mg/dL (1.7-2.3) 02/17/17 09:22 Urine Creatinine 401.9 mg/dL (0.1-20.0) H 02/13/17 15:05 Urine Sodium 34 mmol/L 02/13/17 15:05 Urine Total Protein 89 mg/dL (5-11.8) H 02/13/17 15:05
--- NOTE | 2017-02-20 11:47 | Progress Note ---
Assessment and Plan Assessment and plan: Patient is a 71 YO Man with HTN, prostate cancer, HLD, DM presents to ED for abdominal pains. Pt found to have acute renal failure with a serum creatnine of 7.4, as well as evidence of sepsis. Nephrology consulted in ED, and patient initiated on sepsis protocol. CT Abdomen/pelvis done and patient found to have partial bowel obstruction. 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 Surgeon, Dr. Mazariegos, most likely from uti 02/16/17 Had vascath, going for Hemodialysis today 02/17/17 Tolerated HD well, start liquid diet per surgery 02/18/17: tolerated diet, had bowel movement this morning, wants to go home, at bedside. long discussion regarding disposition and plan of care. No dialysis 02/19/17: SBO resolved, await Nephrology clearance for discharge, ?needing outpatient hemodialysis. On IV zosyn day 7 which is last day. No dialysis 02/20/17: d/w renal, Shy Clayton==>Renal function is improving, No dialysis today. check bmp in am and possibly d/c soon History Interval history: Patient was seen and examined. Follow-up on current diagnosis/abdominal pain. Overnight uneventful. Patient denies any chest pain, shortness breath, nausea/ vomiting or severe headaches. Imaging, nursing note, chart, labs and old chart reviewed. Discussed with patient. Hospitalist Physical - Physical exam Narrative exam: GEN: WDWN, NAD, AWAKE, ALERT, ORIENTATED 3 HEENT: NCAT, EOMI, PERRL, OP Clear NECK: supple, no adenopathy, no thyromegaly, no JVD CVS/HEART: RRR, NORMAL S1S2, NO JVD, pulses present bilaterally CHEST/LUNGS: CTA B, Symmetrical chest expansion, good air entry bilaterally GI/Abdomen: soft, distended, hypoactive but improved bowel sounds, no guarding or rebound /Bladder: no suprapubic tenderness, no CVA or paraspinal tenderness EXT/Skin: no c/c/e, no obvious rash MSK: FROM x 4 Neuro: CN 2-12 grossly intact, no new focal deficits Psych: calm - Constitutional Vitals: Temp Pulse Resp BP Pulse Ox 98.1 F 89 18 172/103 97 02/20/17 11:26 02/20/17 11:26 02/20/17 11:26 02/20/17 11:26 02/20/17 11:26 General appearance: Present: no acute distress Results - Labs CBC & Chem 7: 02/20/17 05:50 02/20/17 05:50 Labs: Laboratory Last Values WBC 16.8 K/mm3 (4.5-11.0) H 02/20/17 05:50 RBC 4.84 M/mm3 (3.65-5.03) 02/20/17 05:50 Hgb 11.7 gm/dl (11.8-15.2) L 02/20/17 05:50 Hct 37.9 % (35.5-45.6) 02/20/17 05:50 MCV 78 fl (84-94) L 02/20/17 05:50 MCH 24 pg (28-32) L 02/20/17 05:50 MCHC 31 % (32-34) L 02/20/17 05:50 RDW 15.1 % (13.2-15.2) 02/20/17 05:50 Plt Count 293 K/mm3 (140-440) 02/20/17 05:50 Lymph % (Auto) 2.2 % (13.4-35.0) L 02/15/17 05:19 [place] % (Auto) 8.0 % (0.0-7.3) H 02/15/17 05:19 Eos % (Auto) 1.4 % (0.0-4.3) 02/15/17 05:19 Baso % (Auto) 0.1 % (0.0-1.8) 02/15/17 05:19 Lymph # 0.3 K/mm3 (1.2-5.4) L 02/15/17 05:19 [place] # 1.1 K/mm3 (0.0-0.8) H 02/15/17 05:19 Eos # 0.2 K/mm3 (0.0-0.4) 02/15/17 05:19 Baso # 0.0 K/mm3 (0.0-0.1) 02/15/17 05:19 Seg Neutrophils % 88.3 % (40.0-70.0) H 02/15/17 05:19 Seg Neutrophils # 12.0 K/mm3 (1.8-7.7) H 02/15/17 05:19 Sodium 146 mmol/L (137-145) H 02/20/17 05:50 Potassium 3.8 mmol/L (3.6-5.0) D 02/20/17 05:50 Chloride 104.4 mmol/L (98-107) 02/20/17 05:50 Carbon Dioxide 21 mmol/L (22-30) L 02/20/17 05:50 Anion Gap 24 mmol/L 02/20/17 05:50 BUN 65 mg/dL (9-20) H 02/20/17 05:50 Creatinine 3.1 mg/dL (0.8-1.5) H 02/20/17 05:50 Estimated GFR 24 ml/min 02/20/17 05:50 BUN/Creatinine Ratio 21 % 02/20/17 05:50 Glucose 135 mg/dL (75-100) H 02/20/17 05:50 POC Glucose 135 (70-105) H 02/20/17 06:11 Lactic Acid 2.50 mmol/L (0.7-2.0) H* 02/14/17 01:05 Calcium 9.2 mg/dL (8.4-10.2) 02/20/17 05:50 Phosphorus 4.60 mg/dL (2.5-4.5) H 02/17/17 09:22 Magnesium 2.00 mg/dL (1.7-2.3) 02/17/17 09:22 Total Bilirubin 0.40 mg/dL (0.1-1.2) 02/18/17 05:28 AST 15 units/L (5-40) 02/18/17 05:28 ALT 21 units/L (7-56) 02/18/17 05:28 Alkaline Phosphatase 94 units/L (35-129) 02/18/17 05:28 Total Creatine Kinase 198 units/L (55-170) H 02/13/17 11:06 NT-Pro-B Natriuret Pep 256.4 pg/mL (0-900) 02/15/17 05:19 Total Protein 6.8 g/dL (6.3-8.2) 02/18/17 05:28 Albumin 3.1 g/dL (3.9-5) L 02/18/17 05:28 Albumin/Globulin Ratio 0.8 % 02/18/17 05:28 Lipase 21 units/L (13-60) 02/13/17 11:06 Urine Color Yellow (Yellow) 02/13/17 15:05 Urine Turbidity Clear (Clear) 02/13/17 15:05 Urine pH 5.0 (5.0-7.0) 02/13/17 15:05 Ur Specific [place] 1.020 (1.003-1.030) 02/13/17 15:05 Urine Protein 100 mg/dl mg/dL (Negative) 02/13/17 15:05 Urine Glucose (UA) 50 mg/dL (Negative) 02/13/17 15:05 Urine Ketones Neg mg/dL (Negative) 02/13/17 15:05 Urine Blood Sm (Negative) 02/13/17 15:05 Urine Nitrite Neg (Negative) 02/13/17 15:05 Urine Bilirubin Neg (Negative) 02/13/17 15:05 Urine Urobilinogen < 2.0 mg/dL (<2.0) 02/13/17 15:05 Ur Leukocyte Esterase Neg (Negative) 02/13/17 15:05 Urine WBC (Auto) 26.0 /HPF (0.0-6.0) H 02/13/17 15:05 Urine RBC (Auto) 5.0 /HPF (0.0-6.0) 02/13/17 15:05 U Epithel Cells (Auto) 1.0 /HPF (0-13.0) 02/13/17 15:05 Urine Bacteria (Auto) 1+ /HPF (Negative) 02/13/17 15:05 Hyaline Casts 3 /LPF 02/13/17 15:05 Urine Mucus Few /HPF 02/13/17 15:05 Urine Eosinophils None seen (None Seen) 02/13/17 15:05 Urine Creatinine 401.9 mg/dL (0.1-20.0) H 02/13/17 15:05 Protein/Creatinin Ratio 0.22 02/13/17 15:05 Urine Sodium 34 mmol/L 02/13/17 15:05 Urine Urea Nitrogen 181 02/13/17 15:05 Urine Total Protein 89 mg/dL (5-11.8) H 02/13/17 15:05 Hepatitis A IgM Ab Non-reactive (NonReactive) 02/16/17 11:30 Hep Bs Antigen Non-reactive (Negative) 02/16/17 11:30 Hep B Core IgM Ab Non-reactive (NonReactive) 02/16/17 11:30 Hepatitis C Antibody Non-reactive (NonReactive) 02/16/17 11:30
[2017-02-20] MEDS: HEPARIN SUB-Q SCH ×2 (13:01→21:51)
[2017-02-20] MEDS: COREG PO SCH ×2 (16:41→21:53)
[2017-02-21] MEDS: NOVOLOG SUB-Q SCH ×4 (04:27→17:22)
[2017-02-21 05:42] LABS: Hematocrit 34.8 % (35.5-45.6); Hemoglobin 11.4 gm/dl (11.8-15.2); Mean Corpuscular HGB Conc 33 % (32-34); Mean Corpuscular Hemoglobin 25 pg (28-32); Mean Corpuscular Volume 78 fl (84-94); Platelet Count 271 K/mm3 (140-440); Red Blood Count 4.48 M/mm3 (3.65-5.03); Red Cell Distribution Width 14.9 % (13.2-15.2); White Blood Count 14.2 K/mm3 (4.5-11.0)
[2017-02-21 06:11] LABS: Calcium 9.1 mg/dL (8.4-10.2); Potassium 3.5 mmol/L (3.6-5.0)
[2017-02-21] MEDS: ZOSYN/NS 2.25 GM/50ML 2.25 GM/50 ML BAG IV SCH ×3 (06:38→21:47)
--- NOTE | 2017-02-21 10:29 | Cat Scan Report ---
CT of the abdomen and pelvis without IV contrast and with oral contrast. History: Small bowel obstruction. Findings: Comparison is made to the previous study on February 13, 2017. The liver, spleen, and upper abdominal viscera are unremarkable and unchanged. A prominent right renal cyst is again noted. There is been mild improvement in the degree of small bowel dilatation compared to prior study. No free air is identified. Scattered gas is seen within the colon. There are no abnormal fluid collections. Brachytherapy seeds are again noted. Impression: Interval improvement in small bowel dilatation. These findings may be related to resolving and/or partial small bowel obstruction. There are no other significant interval changes.
[2017-02-21] MEDS: HEPARIN SUB-Q SCH ×2 (11:17→21:48)
[2017-02-21] MEDS: COREG PO SCH ×2 (11:17→21:47)
--- NOTE | 2017-02-21 11:37 | Progress Note ---
Assessment and Plan Assessment and plan: Patient is a 71 YO Man with HTN, prostate cancer, HLD, DM presents to ED for abdominal pains. Pt found to have acute renal failure with a serum creatnine of 7.4, as well as evidence of sepsis. Nephrology consulted in ED, and patient initiated on sepsis protocol. CT Abdomen/pelvis done and patient found to have partial bowel obstruction. 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 Surgeon, Dr. Mazariegos, most likely from uti 02/16/17 Had vascath, going for Hemodialysis today 02/17/17 Tolerated HD well, start liquid diet per surgery 02/18/17: tolerated diet, had bowel movement this morning, wants to go home, at bedside. long discussion regarding disposition and plan of care. No dialysis 02/19/17: SBO resolved, await Nephrology clearance for discharge, ?needing outpatient hemodialysis. On IV zosyn day 7 which is last day. No dialysis 02/20/17: d/w renal, Shy Clayton==>Renal function is improving, No dialysis today. check bmp in am and possibly d/c soon, blood cultures came back Bacteroides Thetaiotaomicron, consulted ID==>recommend starting iv zosyn d/w general surgeon, Dr. Mazariegos, exam is not indicative of perforation, he may had a microperformation that was walled off, recommends getting ct ap with oral contrast only, no iv contrast due to kidney failure 02/21/17: CT abdomen and pelvis without IV contrast but with oral contrast reported as interval improvement in small bowel dilatation, these findings may be related to resolving and/or partial small bowel obstruction, no other significant interval changes. Creatinine is remaining stable, await ID recommendation on the Bacteroides in the blood History Interval history: Patient was seen and examined. Follow-up on current diagnosis/abdominal pain. Overnight uneventful. Patient denies any chest pain, shortness breath, nausea/ vomiting or severe headaches. Imaging, nursing note, chart, labs and old chart reviewed. Discussed with patient. Hospitalist Physical - Physical exam Narrative exam: GEN: WDWN, NAD, AWAKE, ALERT, ORIENTATED 3 HEENT: NCAT, EOMI, PERRL, OP Clear NECK: supple, no adenopathy, no thyromegaly, no JVD CVS/HEART: RRR, NORMAL S1S2, NO JVD, pulses present bilaterally CHEST/LUNGS: CTA B, Symmetrical chest expansion, good air entry bilaterally GI/Abdomen: soft, distended, hypoactive but improved bowel sounds, no guarding or rebound /Bladder: no suprapubic tenderness, no CVA or paraspinal tenderness EXT/Skin: no c/c/e, no obvious rash MSK: FROM x 4 Neuro: CN 2-12 grossly intact, no new focal deficits Psych: calm - Constitutional Vitals: Temp Pulse Resp BP Pulse Ox 98.6 F 95 H 19 123/86 82 L 02/21/17 07:13 02/21/17 07:13 02/21/17 07:13 02/21/17 07:13 02/21/17 07:13 General appearance: Present: no acute distress Results - Labs CBC & Chem 7: 02/21/17 05:09 02/21/17 05:09 Labs: Laboratory Last Values WBC 14.2 K/mm3 (4.5-11.0) H 02/21/17 05:09 RBC 4.48 M/mm3 (3.65-5.03) 02/21/17 05:09 Hgb 11.4 gm/dl (11.8-15.2) L 02/21/17 05:09 Hct 34.8 % (35.5-45.6) L 02/21/17 05:09 MCV 78 fl (84-94) L 02/21/17 05:09 MCH 25 pg (28-32) L 02/21/17 05:09 MCHC 33 % (32-34) 02/21/17 05:09 RDW 14.9 % (13.2-15.2) 02/21/17 05:09 Plt Count 271 K/mm3 (140-440) 02/21/17 05:09 Lymph % (Auto) 2.2 % (13.4-35.0) L 02/15/17 05:19 [place] % (Auto) 8.0 % (0.0-7.3) H 02/15/17 05:19 Eos % (Auto) 1.4 % (0.0-4.3) 02/15/17 05:19 Baso % (Auto) 0.1 % (0.0-1.8) 02/15/17 05:19 Lymph # 0.3 K/mm3 (1.2-5.4) L 02/15/17 05:19 [place] # 1.1 K/mm3 (0.0-0.8) H 02/15/17 05:19 Eos # 0.2 K/mm3 (0.0-0.4) 02/15/17 05:19 Baso # 0.0 K/mm3 (0.0-0.1) 02/15/17 05:19 Seg Neutrophils % 88.3 % (40.0-70.0) H 02/15/17 05:19 Seg Neutrophils # 12.0 K/mm3 (1.8-7.7) H 02/15/17 05:19 Sodium 147 mmol/L (137-145) H 02/21/17 05:09 Potassium 3.5 mmol/L (3.6-5.0) L 02/21/17 05:09 Chloride 107.0 mmol/L (98-107) 02/21/17 05:09 Carbon Dioxide 21 mmol/L (22-30) L 02/21/17 05:09 Anion Gap 23 mmol/L 02/21/17 05:09 BUN 61 mg/dL (9-20) H 02/21/17 05:09 Creatinine 3.1 mg/dL (0.8-1.5) H 02/21/17 05:09 Estimated GFR 24 ml/min 02/21/17 05:09 BUN/Creatinine Ratio 20 % 02/21/17 05:09 Glucose 141 mg/dL (75-100) H 02/21/17 05:09 POC Glucose 126 (70-105) H 02/20/17 15:33 Lactic Acid 2.50 mmol/L (0.7-2.0) H* 02/14/17 01:05 Calcium 9.1 mg/dL (8.4-10.2) 02/21/17 05:09 Phosphorus 4.60 mg/dL (2.5-4.5) H 02/17/17 09:22 Magnesium 2.00 mg/dL (1.7-2.3) 02/17/17 09:22 Total Bilirubin 0.40 mg/dL (0.1-1.2) 02/18/17 05:28 AST 15 units/L (5-40) 02/18/17 05:28 ALT 21 units/L (7-56) 02/18/17 05:28 Alkaline Phosphatase 94 units/L (35-129) 02/18/17 05:28 Total Creatine Kinase 198 units/L (55-170) H 02/13/17 11:06 NT-Pro-B Natriuret Pep 256.4 pg/mL (0-900) 02/15/17 05:19 Total Protein 6.8 g/dL (6.3-8.2) 02/18/17 05:28 Albumin 3.1 g/dL (3.9-5) L 02/18/17 05:28 Albumin/Globulin Ratio 0.8 % 02/18/17 05:28 Lipase 21 units/L (13-60) 02/13/17 11:06 Urine Color Yellow (Yellow) 02/13/17 15:05 Urine Turbidity Clear (Clear) 02/13/17 15:05 Urine pH 5.0 (5.0-7.0) 02/13/17 15:05 Ur Specific [place] 1.020 (1.003-1.030) 02/13/17 15:05 Urine Protein 100 mg/dl mg/dL (Negative) 02/13/17 15:05 Urine Glucose (UA) 50 mg/dL (Negative) 02/13/17 15:05 Urine Ketones Neg mg/dL (Negative) 02/13/17 15:05 Urine Blood Sm (Negative) 02/13/17 15:05 Urine Nitrite Neg (Negative) 02/13/17 15:05 Urine Bilirubin Neg (Negative) 02/13/17 15:05 Urine Urobilinogen < 2.0 mg/dL (<2.0) 02/13/17 15:05 Ur Leukocyte Esterase Neg (Negative) 02/13/17 15:05 Urine WBC (Auto) 26.0 /HPF (0.0-6.0) H 02/13/17 15:05 Urine RBC (Auto) 5.0 /HPF (0.0-6.0) 02/13/17 15:05 U Epithel Cells (Auto) 1.0 /HPF (0-13.0) 02/13/17 15:05 Urine Bacteria (Auto) 1+ /HPF (Negative) 02/13/17 15:05 Hyaline Casts 3 /LPF 02/13/17 15:05 Urine Mucus Few /HPF 02/13/17 15:05 Urine Eosinophils None seen (None Seen) 02/13/17 15:05 Urine Creatinine 401.9 mg/dL (0.1-20.0) H 02/13/17 15:05 Protein/Creatinin Ratio 0.22 02/13/17 15:05 Urine Sodium 34 mmol/L 02/13/17 15:05 Urine Urea Nitrogen 181 02/13/17 15:05 Urine Total Protein 89 mg/dL (5-11.8) H 02/13/17 15:05 Hepatitis A IgM Ab Non-reactive (NonReactive) 02/16/17 11:30 Hep Bs Antigen Non-reactive (Negative) 02/16/17 11:30 Hep B Core IgM Ab Non-reactive (NonReactive) 02/16/17 11:30 Hepatitis C Antibody Non-reactive (NonReactive) 02/16/17 11:30
--- NOTE | 2017-02-21 11:44 | Progress Note ---
Assessment and Plan - Patient Problems (1) Acute renal failure Current Visit: Yes Status: Acute Plan to address problem: Renal function reviewed. Serum creatinine remains at 3.1 today. Will obtain 24 hour urine collection to assess creatinine clearance Will obtain total urine protein Right IJ vasc cath intact Will assess dialysis needs daily Renally dose medications Monitor I/O's Avoid Nephrotoxic agents Renal plan reviewed with Dr. Contreras (2) Hypokalemia Current Visit: Yes Status: Acute Plan to address problem: Resolved (3) SBO (small bowel obstruction) Current Visit: Yes Status: Acute Plan to address problem: Now on soft diet as per General Surgery (4) Hypertension Current Visit: Yes Status: Acute Plan to address problem: Blood pressures are stable on Coreg 6.25 mg po BID (5) Hypernatremia Current Visit: Yes Status: Acute Plan to address problem: Starting free water intake Subjective Date of service: 02/21/17 Principal diagnosis: Renal failure Interval history: Patient seen lying in bed. States he is thirsty due to only being given ice chips. RN notified. Patient will receive water. Objective - Vital Signs Vital signs: Vital Signs - 12hr 02/21/17 02/21/17 05:16 07:13 Temperature 99.0 F 98.6 F Pulse Rate 98 H 95 H Respiratory 18 19 Rate Blood Pressure 115/73 123/86 O2 Sat by Pulse 95 82 L Oximetry - General Appearance General appearance: well-developed, appears stated age EENT: ATNC, PERRL, hearing intact, vision intact Neck: no JVD, supple Respiratory: Present: Decreased Breath Sounds Cardiology: tachycardia, S1S2 Gastrointestinal: normoactive bowel sounds Integumentary: warm and dry Neurologic: alert and oriented x3 Musculoskeletal: no deformities, no erythema, no cyanosis, no clubbing Psychiatric: cooperative - Lab 02/21/17 05:09 02/21/17 05:09 Most recent lab results Calcium 9.1 mg/dL (8.4-10.2) 02/21/17 05:09 Phosphorus 4.60 mg/dL (2.5-4.5) H 02/17/17 09:22 Magnesium 2.00 mg/dL (1.7-2.3) 02/17/17 09:22 Urine Creatinine 401.9 mg/dL (0.1-20.0) H 02/13/17 15:05 Urine Sodium 34 mmol/L 02/13/17 15:05 Urine Total Protein 89 mg/dL (5-11.8) H 02/13/17 15:05
--- NOTE | 2017-02-21 12:50 | Consultation ---
History of Present Illness - Reason for Consult Consult date: 02/21/17 bacteremia Requesting physician: CORWIN SALGADO - History of Present Illness 71 years old male with history of HTN, HLD and DM admitted on 02/13/2017 due to 5 days history of progressive abdominal pain. He reports his abdominal pain was diffuse, 5 out 10, crampy, associated with nausea and vomiting. Denies constipation. She reports decreased urination. Denies dysuria or hematuria. In the emergency room, initial temperature 97.5, heart rate 111, blood pressure 85/67. Initial white blood cell count 13.3. Hemoglobin 13.3. Creat 7.4. Lactate 2.5. Urianalysis negative leukocyte esterase and only 26 white blood cells. Vital hepatitis panel was negative. CT scan of the abdomen showed small bowel obstruction with chronic pancreatitis. CXR bibasilar scaring. Repeat abd XR shows increased small bowel distention new thumbprinting consistent with small bowel ischemia and colonic ischemia. Microbiology: Blood cultures: 02/13 Bacteroides thetaiotaomicro 02/15 neg Urine cultures: 02/14 neg Respiratory cultures: Current Antimicrobials: Zosyn 02/20 Previous Antimicrobials: Past History Past Medical History: cancer (prostate cancer s/p radiation), diabetes, hypertension, hyperlipidemia Past Surgical History: hernia repair (right inguinal), Other (prostate surgery) Social history: single. denies: smoking, alcohol abuse, prescription drug abuse Family history: diabetes, hypertension Medications and Allergies Allergies Allergy/AdvReac Type Severity Reaction Status Date / Time No Known Allergies Allergy Verified 02/13/17 10:49 Home Medications Medication Instructions Recorded Confirmed Last Taken Type Ibuprofen 800 mg PO TID PRN 02/13/17 02/13/17 02/13/17 History Lisinopril/Hydrochlorothiazide 1 tab PO QDAY 02/13/17 02/13/17 02/13/17 History [Zestoretic 20-12.5 mg] Simvastatin [Zocor] 20 mg PO DAILY 02/13/17 02/13/17 02/13/17 History Tamsulosin [Flomax] 0.4 mg PO QDAY 02/13/17 02/13/17 02/13/17 History metFORMIN [Glucophage] 500 mg PO BID 02/13/17 02/13/17 02/13/17 History Active Meds: Active Medications Acetaminophen (Tylenol) 650 mg PO Q4H PRN PRN Reason: Pain MILD(1-3)/Fever >100.5/GAMBLE Bisacodyl (Dulcolax) 10 mg NV QDAY PRN PRN Reason: Constipation unrelieved by MOM Carvedilol (Coreg) 6.25 mg PO BID [facility] Last Admin: 02/21/17 11:17 Dose: 6.25 mg Dextrose (D50w (25gm) Syringe) 50 ml IV PRN PRN PRN Reason: Hypoglycemia Heparin Sodium (Porcine) (Heparin) 5,000 unit SUB-Q Q12HR [facility] Last Admin: 02/21/17 11:17 Dose: 5,000 unit Heparin Sodium (Porcine) (Heparin) 5,000 unit IV SAW PRN PRN Reason: hemodialysis Last Admin: 02/17/17 17:29 Dose: 5,000 unit Sodium Chloride (Nacl 0.9%) 100 mls @ 999 mls/hr IV SAW PRN PRN Reason: Hypotension Piperacillin Sod/Tazobactam Sod (Zosyn/Ns 2.25 Gm/50ml) 2.25 gm in 50 mls @ 100 mls/hr IV Q8HR KEVIN PRN Reason: Protocol Last Admin: 02/21/17 06:38 Dose: 100 mls/hr Insulin Aspart (Novolog) 0 units SUB-Q Q6HR KEVIN PRN Reason: Protocol Last Admin: 02/21/17 06:40 Dose: Not Given Morphine Sulfate (Morphine) 2 mg IV Q4H PRN PRN Reason: Pain , Severe (7-10) Ondansetron HCl (Zofran) 4 mg IV Q4H PRN PRN Reason: N/V unrelieved by Reglan Phenol (Chloraseptic) 1 spray MM PRN PRN PRN Reason: Sore Throat Physical Examination - Physical Exam Narrative exam: General appearance: Alert in NAD, conversant Eyes: anicteric sclerae, moist conjunctivae; no lid-lag; PERRLA HENT: Atraumatic; oropharynx clear Neck: Trachea midline; supple, no thyromegaly or lymphadenopathy Lungs: CTA, with normal respiratory effort and no intercostal retractions CV: RRR, no murmurs Abdomen: Soft, mild tenderness Extremities: + peripheral edema Skin: Normal temperature, turgor and texture; no rash, ulcers or subcutaneous nodules Psych: Appropriate affect, alert and oriented to person, place and time. Neuro: alert and oriented x 3. Moving all extermities Lines: No CVL / PICC - Constitutional Vitals: Vital Signs Temp Pulse Resp BP Pulse Ox 98.6 F 95 H 19 123/86 82 L 02/21/17 07:13 02/21/17 07:13 02/21/17 07:13 02/21/17 07:13 02/21/17 07:13 Temperature -Last 24 Hours Temperature 98.6 F Temperature 99.0 F Temperature 98.8 F Temperature 99.2 F Temperature 98.5 F Results - Labs CBC & Chem 7: 02/21/17 05:09 02/21/17 05:09 Labs: Abnormal lab results 02/20/17 02/21/17 02/21/17 Range/Units 15:33 05:09 05:09 WBC 14.2 H (4.5-11.0) K/mm3 Hgb 11.4 L (11.8-15.2) gm/dl Hct 34.8 L (35.5-45.6) % MCV 78 L (84-94) fl MCH 25 L (28-32) pg Sodium 147 H (137-145) mmol/L Potassium 3.5 L (3.6-5.0) mmol/L Carbon Dioxide 21 L (22-30) mmol/L BUN 61 H (9-20) mg/dL Creatinine 3.1 H (0.8-1.5) mg/dL Glucose 141 H (75-100) mg/dL POC Glucose 126 H (70-105) Assessment and Plan Assessment: 1) Sepsis: Present on admission, manifested by tachycardia, hypotension, leukocytosis, increased lactate. Etiology most likely anaerobic bacteremia. 2) Bacteroides bacteremia: likely real in the setting of sepsis and SB obstruction ? ischemia ? microperf. UA showed mild pleocytosis but no leukocyte esterase doubt UTI. 3) Small bowel obstruction +/- ischemia 4) LINDA Plan: -continue zosyn -stop vancomycin -check CRP -monitor SBO +/- ischemia ? microperf -upon discharge will do levaquin 750 mg po qday + flagyl 500 mg po TID total [address] Salgado for your consultation, will follow up with you. Swetha Castellon MD Infectious Diseases Specialist [facility], [place], [facility] ([facility]) M [phone] O [phone]
[2017-02-22] MEDS: NOVOLOG SUB-Q SCH ×4 (00:59→17:06)
[2017-02-22 05:42] LABS: Hematocrit 34.4 % (35.5-45.6); Hemoglobin 10.8 gm/dl (11.8-15.2); Mean Corpuscular HGB Conc 32 % (32-34); Mean Corpuscular Volume 79 fl (84-94); Platelet Count 304 K/mm3 (140-440); Red Blood Count 4.39 M/mm3 (3.65-5.03); White Blood Count 13.4 K/mm3 (4.5-11.0)
[2017-02-22 05:49] LABS: Mean Corpuscular Hemoglobin 25 pg (28-32)
[2017-02-22 05:53] LABS: Albumin/Globulin Ratio 0.7 %; Bilirubin,Total 0.4 mg/dL (0.1-1.2); Calcium 8.9 mg/dL (8.4-10.2); Chloride 102.1 mmol/L (98-107); Phosphorous 5.4 mg/dL (2.5-4.5); Potassium 3.5 mmol/L (3.6-5.0); Total Protein 7.1 g/dL (6.3-8.2)
[2017-02-22] MEDS: ZOSYN/NS 2.25 GM/50ML 2.25 GM/50 ML BAG IV SCH ×3 (06:19→21:41)
[2017-02-22 06:45] LABS: Basophils % (Manual) 0 % (0.0-1.8); Blastocytes % (Manual) 0 %
[2017-02-22 06:46] LABS: Anisocytosis 1+; Diff Status Complete; Platelet Estimate Consistent w Auto
[2017-02-22] MEDS ORDERED: K-DUR PO NR (09:00)
--- NOTE | 2017-02-22 10:04 | Progress Note ---
Assessment and Plan (1) Acute renal failure Current Visit: Yes Status: Acute Plan to address problem: stable Cr and BUN, no UOP recorded, discussed with his nurse 24 hour urine collection to assess creatinine clearance is pending will check urine FeNa will check bladder scan Right IJ vasc cath intact Will assess dialysis needs daily Renally dose medications Monitor I/O's Avoid Nephrotoxic agents will start Phos binders Sevelamer 800 mg TID with meals (2) Hypokalemia Current Visit: Yes Status: Acute Plan to address problem: Resolved (3) SBO (small bowel obstruction) Current Visit: Yes Status: Acute Plan to address problem: Now on soft diet as per General Surgery (4) Hypertension Current Visit: Yes Status: Acute Plan to address problem: controlled with current meds (5) Hypernatremia Current Visit: Yes Status: Acute Plan to address problem: resolved Subjective Date of service: 02/22/17 Principal diagnosis: Renal failure Interval history: states he has been urinating more the last day but not a lot Objective - Vital Signs Vital signs: Vital Signs - 12hr 02/21/17 02/22/17 02/22/17 23:30 04:39 07:31 Temperature 98.7 F 98.9 F 98.9 F Pulse Rate 83 84 102 H Respiratory 18 16 18 Rate Blood Pressure 149/88 127/78 132/95 O2 Sat by Pulse 98 95 97 Oximetry - General Appearance General appearance: well-developed, well-nourished, appears stated age EENT: ATNC, PERRL, mucous membranes moist Neck: no JVD, no carotid bruit Respiratory: Present: Clear to Ascultation. Absent: Rales, Ronchi Cardiology: regular, S1S2 Gastrointestinal: normoactive bowel sounds, no tenderness, no distended Integumentary: no rash, warm and dry Neurologic: no focal deficit, no asterixis, alert and oriented x3 Musculoskeletal: other (trace pitting edema in BLE) Psychiatric: mood/affect appropriate, cooperative - Lab 02/22/17 04:51 02/22/17 04:51 Most recent lab results Calcium 8.9 mg/dL (8.4-10.2) 02/22/17 04:51 Phosphorus 5.40 mg/dL (2.5-4.5) H 02/22/17 04:51 Magnesium 2.00 mg/dL (1.7-2.3) 02/17/17 09:22 Urine Creatinine 401.9 mg/dL (0.1-20.0) H 02/13/17 15:05 Urine Sodium 34 mmol/L 02/13/17 15:05 Urine Total Protein 89 mg/dL (5-11.8) H 02/13/17 15:05
[2017-02-22] MEDS: COREG PO SCH ×2 (10:12→21:41)
[2017-02-22] MEDS: HEPARIN SUB-Q SCH ×2 (10:13→21:42)
[2017-02-22] MEDS: RENVELA PO SCH ×3 (10:24→17:00)
--- NOTE | 2017-02-22 12:33 | Progress Note ---
Assessment and Plan Assessment and plan: Patient is a 71 YO Man with HTN, prostate cancer, HLD, DM presents to ED for abdominal pains. Pt found to have acute renal failure with a serum creatnine of 7.4, as well as evidence of sepsis. Nephrology consulted in ED, and patient initiated on sepsis protocol. CT Abdomen/pelvis done and patient found to have partial bowel obstruction. 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 Jovani Fonseca, credit control officer D/W Gen. Surgeon, Dr. Mazariegos, most likely from uti 02/16/17 Had vascath, going for Hemodialysis today 02/17/17 Tolerated HD well, start liquid diet per surgery 02/18/17: tolerated diet, had bowel movement this morning, wants to go home, at bedside. long discussion regarding disposition and plan of care. No dialysis 02/19/17: SBO resolved, await Nephrology clearance for discharge, ?needing outpatient hemodialysis. On IV zosyn day 7 which is last day. No dialysis 02/20/17: d/w renal, Shy Clayton==>Renal function is improving, No dialysis today. check bmp in am and possibly d/c soon, blood cultures came back Bacteroides Thetaiotaomicron, consulted ID==>recommend starting iv zosyn d/w general surgeon, Dr. Mazariegos, exam is not indicative of perforation, he may had a microperformation that was walled off, recommends getting ct ap with oral contrast only, no iv contrast due to kidney failure 02/21/17: CT abdomen and pelvis without IV contrast but with oral contrast reported as interval improvement in small bowel dilatation, these findings may be related to resolving and/or partial small bowel obstruction, no other significant interval changes. Creatinine is remaining stable, await ID recommendation on the Bacteroides in the blood 02/22/17: 24 hour urine collection pending, home on friday if Cr stays stable, d /w Dr. Moralez. History Interval history: Patient was seen and examined. Follow-up on current diagnosis/abdominal pain. Overnight uneventful. Patient denies any chest pain, shortness breath, nausea/ vomiting or severe headaches. Imaging, nursing note, chart, labs and old chart reviewed. Discussed with patient. Hospitalist Physical - Physical exam Narrative exam: GEN: WDWN, NAD, AWAKE, ALERT, ORIENTATED 3 HEENT: NCAT, EOMI, PERRL, OP Clear NECK: supple, no adenopathy, no thyromegaly, no JVD CVS/HEART: RRR, NORMAL S1S2, NO JVD, pulses present bilaterally CHEST/LUNGS: CTA B, Symmetrical chest expansion, good air entry bilaterally GI/Abdomen: soft, distended, hypoactive but improved bowel sounds, no guarding or rebound /Bladder: no suprapubic tenderness, no CVA or paraspinal tenderness EXT/Skin: no c/c/e, no obvious rash MSK: FROM x 4 Neuro: CN 2-12 grossly intact, no new focal deficits Psych: calm - Constitutional Vitals: Temp Pulse Resp BP Pulse Ox 98.6 F 85 18 136/82 98 02/22/17 11:42 02/22/17 11:42 02/22/17 11:42 02/22/17 11:42 02/22/17 11:42 General appearance: Present: no acute distress Results - Labs CBC & Chem 7: 02/22/17 04:51 02/22/17 04:51 Labs: Laboratory Last Values WBC 13.4 K/mm3 (4.5-11.0) H 02/22/17 04:51 RBC 4.39 M/mm3 (3.65-5.03) 02/22/17 04:51 Hgb 10.8 gm/dl (11.8-15.2) L 02/22/17 04:51 Hct 34.4 % (35.5-45.6) L 02/22/17 04:51 MCV 79 fl (84-94) L 02/22/17 04:51 MCH 25 pg (28-32) L 02/22/17 04:51 MCHC 32 % (32-34) 02/22/17 04:51 RDW 15.0 % (13.2-15.2) 02/22/17 04:51 Plt Count 304 K/mm3 (140-440) 02/22/17 04:51 Lymph % (Auto) 2.2 % (13.4-35.0) L 02/15/17 05:19 Andrews % (Auto) 8.0 % (0.0-7.3) H 02/15/17 05:19 Eos % (Auto) 1.4 % (0.0-4.3) 02/15/17 05:19 Baso % (Auto) 0.1 % (0.0-1.8) 02/15/17 05:19 Lymph # 0.3 K/mm3 (1.2-5.4) L 02/15/17 05:19 Andrews # 1.1 K/mm3 (0.0-0.8) H 02/15/17 05:19 Eos # 0.2 K/mm3 (0.0-0.4) 02/15/17 05:19 Baso # 0.0 K/mm3 (0.0-0.1) 02/15/17 05:19 Add Manual Diff Complete 02/22/17 04:51 Total Counted 100 02/22/17 04:51 Seg Neutrophils % 88.3 % (40.0-70.0) H 02/15/17 05:19 Seg Neuts % (Manual) 75.0 % (40.0-70.0) H 02/22/17 04:51 Band Neutrophils % 6.0 % 02/22/17 04:51 Lymphocytes % (Manual) 5.0 % (13.4-35.0) L 02/22/17 04:51 Reactive Lymphs % (Man) 0 % 02/22/17 04:51 Monocytes % (Manual) 7.0 % (0.0-7.3) 02/22/17 04:51 Eosinophils % (Manual) 7.0 % (0.0-4.3) H 02/22/17 04:51 Basophils % (Manual) 0 % (0.0-1.8) 02/22/17 04:51 Metamyelocytes % 0 % 02/22/17 04:51 Myelocytes % 0 % 02/22/17 04:51 Promyelocytes % 0 % 02/22/17 04:51 Blast Cells % 0 % 02/22/17 04:51 Nucleated RBC % Not Reportable 02/22/17 04:51 Seg Neutrophils # 12.0 K/mm3 (1.8-7.7) H 02/15/17 05:19 Seg Neutrophils # Man 10.1 K/mm3 (1.8-7.7) H 02/22/17 04:51 Band Neutrophils # 0.8 K/mm3 02/22/17 04:51 Lymphocytes # (Manual) 0.7 K/mm3 (1.2-5.4) L 02/22/17 04:51 Abs React Lymphs (Man) 0.0 K/mm3 02/22/17 04:51 Monocytes # (Manual) 0.9 K/mm3 (0.0-0.8) H 02/22/17 04:51 Eosinophils # (Manual) 0.9 K/mm3 (0.0-0.4) H 02/22/17 04:51 Basophils # (Manual) 0.0 K/mm3 (0.0-0.1) 02/22/17 04:51 Metamyelocytes # 0.0 K/mm3 02/22/17 04:51 Myelocytes # 0.0 K/mm3 02/22/17 04:51 Promyelocytes # 0.0 K/mm3 02/22/17 04:51 Blast Cells # 0.0 K/mm3 02/22/17 04:51 WBC Morphology Not Reportable 02/22/17 04:51 Hypersegmented Neuts Not Reportable 02/22/17 04:51 Hyposegmented Neuts Not Reportable 02/22/17 04:51 Hypogranular Neuts Not Reportable 02/22/17 04:51 Smudge Cells Not Reportable 02/22/17 04:51 Toxic Granulation Not Reportable 02/22/17 04:51 Toxic Vacuolation Not Reportable 02/22/17 04:51 Dohle Bodies Not Reportable 02/22/17 04:51 Pelger-Huet Anomaly Not Reportable 02/22/17 04:51 Theresa Rods Not Reportable 02/22/17 04:51 Platelet Estimate Consistent w auto 02/22/17 04:51 Clumped Platelets Not Reportable 02/22/17 04:51 Plt Clumps, EDTA Not Reportable 02/22/17 04:51 Large Platelets Not Reportable 02/22/17 04:51 Giant Platelets Not Reportable 02/22/17 04:51 Platelet Satelliting Not Reportable 02/22/17 04:51 Plt Morphology Comment Not Reportable 02/22/17 04:51 RBC Morphology Not Reportable 02/22/17 04:51 Dimorphic RBCs Not Reportable 02/22/17 04:51 Polychromasia Not Reportable 02/22/17 04:51 Hypochromasia Not Reportable 02/22/17 04:51 Poikilocytosis Not Reportable 02/22/17 04:51 Anisocytosis 1+ 02/22/17 04:51 Microcytosis Not Reportable 02/22/17 04:51 Macrocytosis Not Reportable 02/22/17 04:51 Spherocytes Not Reportable 02/22/17 04:51 Pappenheimer Bodies Not Reportable 02/22/17 04:51 Sickle Cells Not Reportable 02/22/17 04:51 Target Cells Not Reportable 02/22/17 04:51 Tear Drop Cells Not Reportable 02/22/17 04:51 Ovalocytes Not Reportable 02/22/17 04:51 Helmet Cells Not Reportable 02/22/17 04:51 Alarcon-Lilydale Bodies Not Reportable 02/22/17 04:51 [place] Rings Not Reportable 02/22/17 04:51 Sonja Cells Not Reportable 02/22/17 04:51 Bite Cells Not Reportable 02/22/17 04:51 Crenated Cell Not Reportable 02/22/17 04:51 Elliptocytes Not Reportable 02/22/17 04:51 Acanthocytes (Spur) Not Reportable 02/22/17 04:51 Rouleaux Not Reportable 02/22/17 04:51 Hemoglobin C Crystals Not Reportable 02/22/17 04:51 Schistocytes Not Reportable 02/22/17 04:51 Malaria parasites Not Reportable 02/22/17 04:51 Corwin Bodies Not Reportable 02/22/17 04:51 Hem Pathologist Commnt No 02/22/17 04:51 Sodium 140 mmol/L (137-145) 02/22/17 04:51 Potassium 3.5 mmol/L (3.6-5.0) L 02/22/17 04:51 Chloride 102.1 mmol/L (98-107) 02/22/17 04:51 Carbon Dioxide 21 mmol/L (22-30) L 02/22/17 04:51 Anion Gap 20 mmol/L 02/22/17 04:51 BUN 57 mg/dL (9-20) H 02/22/17 04:51 Creatinine 3.1 mg/dL (0.8-1.5) H 02/22/17 04:51 Estimated GFR 24 ml/min 02/22/17 04:51 BUN/Creatinine Ratio 18 % 02/22/17 04:51 Glucose 122 mg/dL (75-100) H 02/22/17 04:51 POC Glucose 136 (70-105) H 02/22/17 11:54 Lactic Acid 2.50 mmol/L (0.7-2.0) H* 02/14/17 01:05 Calcium 8.9 mg/dL (8.4-10.2) 02/22/17 04:51 Phosphorus 5.40 mg/dL (2.5-4.5) H 02/22/17 04:51 Magnesium 2.00 mg/dL (1.7-2.3) 02/17/17 09:22 Total Bilirubin 0.40 mg/dL (0.1-1.2) 02/22/17 04:51 AST 20 units/L (5-40) 02/22/17 04:51 ALT 41 units/L (7-56) 02/22/17 04:51 Alkaline Phosphatase 99 units/L (35-129) 02/22/17 04:51 Total Creatine Kinase 198 units/L (55-170) H 02/13/17 11:06 NT-Pro-B Natriuret Pep 256.4 pg/mL (0-900) 02/15/17 05:19 Total Protein 7.1 g/dL (6.3-8.2) 02/22/17 04:51 Albumin 3.0 g/dL (3.9-5) L 02/22/17 04:51 Albumin/Globulin Ratio 0.7 % 02/22/17 04:51 Lipase 21 units/L (13-60) 02/13/17 11:06 Urine Color Yellow (Yellow) 02/13/17 15:05 Urine Turbidity Clear (Clear) 02/13/17 15:05 Urine pH 5.0 (5.0-7.0) 02/13/17 15:05 Ur Specific Inlet 1.020 (1.003-1.030) 02/13/17 15:05 Urine Protein 100 mg/dl mg/dL (Negative) 02/13/17 15:05 Urine Glucose (UA) 50 mg/dL (Negative) 02/13/17 15:05 Urine Ketones Neg mg/dL (Negative) 02/13/17 15:05 Urine Blood Sm (Negative) 02/13/17 15:05 Urine Nitrite Neg (Negative) 02/13/17 15:05 Urine Bilirubin Neg (Negative) 02/13/17 15:05 Urine Urobilinogen < 2.0 mg/dL (<2.0) 02/13/17 15:05 Ur Leukocyte Esterase Neg (Negative) 02/13/17 15:05 Urine WBC (Auto) 26.0 /HPF (0.0-6.0) H 02/13/17 15:05 Urine RBC (Auto) 5.0 /HPF (0.0-6.0) 02/13/17 15:05 U Epithel Cells (Auto) 1.0 /HPF (0-13.0) 02/13/17 15:05 Urine Bacteria (Auto) 1+ /HPF (Negative) 02/13/17 15:05 Hyaline Casts 3 /LPF 02/13/17 15:05 Urine Mucus Few /HPF 02/13/17 15:05 Urine Eosinophils None seen (None Seen) 02/13/17 15:05 Urine Creatinine 401.9 mg/dL (0.1-20.0) H 02/13/17 15:05 Protein/Creatinin Ratio 0.22 02/13/17 15:05 Urine Sodium 34 mmol/L 02/13/17 15:05 Urine Urea Nitrogen 181 02/13/17 15:05 Urine Total Protein 89 mg/dL (5-11.8) H 02/13/17 15:05 Hepatitis A IgM Ab Non-reactive (NonReactive) 02/16/17 11:30 Hep Bs Antigen Non-reactive (Negative) 02/16/17 11:30 Hep B Core IgM Ab Non-reactive (NonReactive) 02/16/17 11:30 Hepatitis C Antibody Non-reactive (NonReactive) 02/16/17 11:30
--- NOTE | 2017-02-22 12:34 | Progress Note ---
Assessment and Plan Assessment: 1) Sepsis: better. Etiology most likely anaerobic bacteremia. 2) Bacteroides bacteremia: likely real in the setting of sepsis and SB obstruction ? ischemia ? microperf. UA showed mild pleocytosis but no leukocyte esterase doubt UTI. 3) Small bowel obstruction +/- ischemia 4) LINDA Plan: -continue zosyn -check CRP -monitor SBO +/- ischemia ? microperf -upon discharge will do levaquin 750 mg po qday + flagyl 500 mg po TID total 14 days from 02/15 until 02/[address] Salgado for your consultation, will follow up with you. Swetha Castellon MD Infectious Diseases Specialist [facility] [id number] [phone] O [phone] Subjective Date of service: 02/22/17 Principal diagnosis: Renal failure Interval history: Feels better, no pain, no N.V.D. No fever. Microbiology: Blood cultures: 02/13 Bacteroides thetaiotaomicro 02/15 neg Urine cultures: 02/14 neg Respiratory cultures: Current Antimicrobials: Zosyn 02/20 Objective - Exam Narrative Exam: General appearance: Alert in NAD, conversant Eyes: anicteric sclerae, moist conjunctivae; no lid-lag; PERRLA HENT: Atraumatic; oropharynx clear Neck: Trachea midline; supple, no thyromegaly or lymphadenopathy Lungs: CTA, with normal respiratory effort and no intercostal retractions CV: RRR, no murmurs Abdomen: Soft, mild tenderness Extremities: + peripheral edema Skin: Normal temperature, turgor and texture; no rash, ulcers or subcutaneous nodules Psych: Appropriate affect, alert and oriented to person, place and time. Neuro: alert and oriented x 3. Moving all extermities Lines: No CVL / PICC - Constitutional Vitals: Vital Signs Temp Pulse Resp BP Pulse Ox 98.6 F 85 18 136/82 98 02/22/17 11:42 02/22/17 11:42 02/22/17 11:42 02/22/17 11:42 02/22/17 11:42 Temperature -Last 24 Hours Temperature 98.6 F Temperature 98.9 F Temperature 98.9 F Temperature 98.7 F Temperature 98.0 F Temperature 98.9 F - Labs CBC & Chem 7: 02/22/17 04:51 02/22/17 04:51 Labs: Abnormal lab results 02/21/17 02/21/17 02/21/17 Range/Units 05:24 11:08 15:24 WBC (4.5-11.0) K/mm3 Hgb (11.8-15.2) gm/dl Hct (35.5-45.6) % MCV (84-94) fl MCH (28-32) pg Seg Neuts % (Manual) (40.0-70.0) % Lymphocytes % (Manual) (13.4-35.0) % Eosinophils % (Manual) (0.0-4.3) % Seg Neutrophils # Man (1.8-7.7) K/mm3 Lymphocytes # (Manual) (1.2-5.4) K/mm3 Monocytes # (Manual) (0.0-0.8) K/mm3 Eosinophils # (Manual) (0.0-0.4) K/mm3 Potassium (3.6-5.0) mmol/L Carbon Dioxide (22-30) mmol/L BUN (9-20) mg/dL Creatinine (0.8-1.5) mg/dL Glucose (75-100) mg/dL POC Glucose 143 H 134 H 178 H (70-105) Phosphorus (2.5-4.5) mg/dL Albumin (3.9-5) g/dL 02/21/17 02/22/17 02/22/17 Range/Units 22:08 04:51 04:51 WBC 13.4 H (4.5-11.0) K/mm3 Hgb 10.8 L (11.8-15.2) gm/dl Hct 34.4 L (35.5-45.6) % MCV 79 L (84-94) fl MCH 25 L (28-32) pg Seg Neuts % (Manual) 75.0 H (40.0-70.0) % Lymphocytes % (Manual) 5.0 L (13.4-35.0) % Eosinophils % (Manual) 7.0 H (0.0-4.3) % Seg Neutrophils # Man 10.1 H (1.8-7.7) K/mm3 Lymphocytes # (Manual) 0.7 L (1.2-5.4) K/mm3 Monocytes # (Manual) 0.9 H (0.0-0.8) K/mm3 Eosinophils # (Manual) 0.9 H (0.0-0.4) K/mm3 Potassium 3.5 L (3.6-5.0) mmol/L Carbon Dioxide 21 L (22-30) mmol/L BUN 57 H (9-20) mg/dL Creatinine 3.1 H (0.8-1.5) mg/dL Glucose 122 H (75-100) mg/dL POC Glucose 142 H (70-105) Phosphorus 5.40 H (2.5-4.5) mg/dL Albumin 3.0 L (3.9-5) g/dL 02/22/17 02/22/17 Range/Units 06:14 11:54 WBC (4.5-11.0) K/mm3 Hgb (11.8-15.2) gm/dl Hct (35.5-45.6) % MCV (84-94) fl MCH (28-32) pg Seg Neuts % (Manual) (40.0-70.0) % Lymphocytes % (Manual) (13.4-35.0) % Eosinophils % (Manual) (0.0-4.3) % Seg Neutrophils # Man (1.8-7.7) K/mm3 Lymphocytes # (Manual) (1.2-5.4) K/mm3 Monocytes # (Manual) (0.0-0.8) K/mm3 Eosinophils # (Manual) (0.0-0.4) K/mm3 Potassium (3.6-5.0) mmol/L Carbon Dioxide (22-30) mmol/L BUN (9-20) mg/dL Creatinine (0.8-1.5) mg/dL Glucose (75-100) mg/dL POC Glucose 142 H 136 H (70-105) Phosphorus (2.5-4.5) mg/dL Albumin (3.9-5) g/dL
[2017-02-23] MEDS: NOVOLOG SUB-Q SCH ×4 (00:28→18:00)
[2017-02-23 04:58] LABS: Basophils % (Auto) 0.6 % (0.0-1.8); Eosinophils % (Auto) 2.3 % (0.0-4.3); Hematocrit 30.7 % (35.5-45.6); Mean Corpuscular HGB Conc 32 % (32-34); Mean Corpuscular Volume 79 fl (84-94); Platelet Count 258 K/mm3 (140-440); Red Blood Count 3.91 M/mm3 (3.65-5.03); Red Cell Distribution Width 14.9 % (13.2-15.2); White Blood Count 12.8 K/mm3 (4.5-11.0)
[2017-02-23 05:02] LABS: Mean Corpuscular Hemoglobin 26 pg (28-32)
[2017-02-23 05:20] LABS: Calcium 8.6 mg/dL (8.4-10.2); Chloride 105.3 mmol/L (98-107); Phosphorous 5.1 mg/dL (2.5-4.5); Potassium 3.5 mmol/L (3.6-5.0)
[2017-02-23] MEDS: ZOSYN/NS 2.25 GM/50ML 2.25 GM/50 ML BAG IV SCH ×3 (05:42→21:49)
[2017-02-23] MEDS: RENVELA PO SCH ×3 (08:16→17:29)
--- NOTE | 2017-02-23 09:29 | Progress Note ---
Assessment and Plan - Patient Problems (1) Acute renal failure Current Visit: Yes Status: Acute Plan to address problem: Renal function reviewed. Serum creatinine albin to 3.7 today from 3.1 yesterday. 24 hour urine collection to assess creatinine clearance and urine protein-> urine collection (1000ml) submitted to lab this morning Right IJ vasc cath intact Will assess dialysis needs daily Renally dose medications Monitor I/O's Avoid Nephrotoxic agents (2) Hypokalemia Current Visit: Yes Status: Acute Plan to address problem: Monitor electrolytes. Stable. (3) SBO (small bowel obstruction) Current Visit: Yes Status: Acute Plan to address problem: Now on soft diet as per General Surgery (4) Hypertension Current Visit: Yes Status: Acute Plan to address problem: Blood pressures are stable on Coreg 6.25 mg po BID (5) Hypernatremia Current Visit: Yes Status: Acute Plan to address problem: Resolved Subjective Date of service: 02/23/17 Principal diagnosis: Renal failure Interval history: Patient seen lying in bed.States wants to go home before Imelda. States feeling well. at bedside. Objective - Vital Signs Vital signs: Vital Signs - 12hr 02/22/17 02/22/17 02/23/17 21:41 23:34 04:42 Temperature 99.7 F H 99.4 F Pulse Rate 85 87 86 Respiratory 20 20 Rate Blood Pressure 138/83 146/87 132/84 O2 Sat by Pulse 97 96 Oximetry 02/23/17 07:10 Temperature 98.9 F Pulse Rate 87 Respiratory 20 Rate Blood Pressure 129/80 O2 Sat by Pulse 96 Oximetry - General Appearance General appearance: well-developed, well-nourished, appears stated age EENT: ATNC, PERRL, hearing intact, vision intact Neck: no JVD, supple Respiratory: Present: Decreased Breath Sounds Cardiology: regular, S1S2 Gastrointestinal: normoactive bowel sounds Integumentary: warm and dry Neurologic: alert and oriented x3 Musculoskeletal: other (Mild edema to bLE) Psychiatric: mood/affect appropriate - Lab 02/23/17 04:35 02/23/17 04:35 Most recent lab results Calcium 8.6 mg/dL (8.4-10.2) 02/23/17 04:35 Phosphorus 5.10 mg/dL (2.5-4.5) H 02/23/17 04:35 Magnesium 2.00 mg/dL (1.7-2.3) 02/17/17 09:22 Urine Creatinine 111.2 mg/dL (0.1-20.0) H 02/22/17 07:20 Urine Sodium 34 mmol/L 02/13/17 15:05 Urine Total Protein 19 mg/dL (5-11.8) H 02/22/17 07:20
--- NOTE | 2017-02-23 09:40 | Progress Note ---
Assessment and Plan Assessment and plan: Patient is a 71 yo with hypertension, prostate cancer, diabetes mellitus type 2 , hyperlipidemia presents to ED for abdominal pains. Pt found to have acute renal failure with a serum creatnine of 7.4, as well as evidence of sepsis.. CT Abdomen/pelvis done and patient found to have partial bowel obstruction. 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 History Interval history: Feels better, No chest pain, No nausea, No vomiting Hospitalist Physical - Physical exam Narrative exam: GEN APPEARANCE : Not in acute distress, lying in bed HEENT: Normocephalic, Atraumatic NECK : supple, no JVD LUNGS: Clear to auscultation bilaterally, no rales, no wheeze HEART: S1 and S2 regular, no murmurs, rubs or gallop, ABD: Soft, non tender, non distended, normal bowel sounds EXT: No edema, no clubbing, no cyanosis NEURO: Awake,alert, oriented x 3, no focal signs - Constitutional Vitals: Temp Pulse Resp BP Pulse Ox 98.9 F 87 20 129/80 96 02/23/17 07:10 02/23/17 07:10 02/23/17 07:10 02/23/17 07:10 02/23/17 07:10 Results - Labs CBC & Chem 7: 02/23/17 04:35 02/23/17 04:35 Labs: Laboratory Last Values WBC 12.8 K/mm3 (4.5-11.0) H 02/23/17 04:35 RBC 3.91 M/mm3 (3.65-5.03) 02/23/17 04:35 Hgb 10.0 gm/dl (11.8-15.2) L 02/23/17 04:35 Hct 30.7 % (35.5-45.6) L 02/23/17 04:35 MCV 79 fl (84-94) L 02/23/17 04:35 MCH 26 pg (28-32) L 02/23/17 04:35 MCHC 32 % (32-34) 02/23/17 04:35 RDW 14.9 % (13.2-15.2) 02/23/17 04:35 Plt Count 258 K/mm3 (140-440) 02/23/17 04:35 Lymph % (Auto) 4.0 % (13.4-35.0) L 02/23/17 04:35 [place] % (Auto) 9.9 % (0.0-7.3) H 02/23/17 04:35 Eos % (Auto) 2.3 % (0.0-4.3) 02/23/17 04:35 Baso % (Auto) 0.6 % (0.0-1.8) 02/23/17 04:35 Lymph # 0.5 K/mm3 (1.2-5.4) L 02/23/17 04:35 [place] # 1.3 K/mm3 (0.0-0.8) H 02/23/17 04:35 Eos # 0.3 K/mm3 (0.0-0.4) 02/23/17 04:35 Baso # 0.1 K/mm3 (0.0-0.1) 02/23/17 04:35 Add Manual Diff Complete 02/22/17 04:51 Total Counted 100 02/22/17 04:51 Seg Neutrophils % 83.2 % (40.0-70.0) H 02/23/17 04:35 Seg Neuts % (Manual) 75.0 % (40.0-70.0) H 02/22/17 04:51 Band Neutrophils % 6.0 % 02/22/17 04:51 Lymphocytes % (Manual) 5.0 % (13.4-35.0) L 02/22/17 04:51 Reactive Lymphs % (Man) 0 % 02/22/17 04:51 Monocytes % (Manual) 7.0 % (0.0-7.3) 02/22/17 04:51 Eosinophils % (Manual) 7.0 % (0.0-4.3) H 02/22/17 04:51 Basophils % (Manual) 0 % (0.0-1.8) 02/22/17 04:51 Metamyelocytes % 0 % 02/22/17 04:51 Myelocytes % 0 % 02/22/17 04:51 Promyelocytes % 0 % 02/22/17 04:51 Blast Cells % 0 % 02/22/17 04:51 Nucleated RBC % Not Reportable 02/22/17 04:51 Seg Neutrophils # 10.6 K/mm3 (1.8-7.7) H 02/23/17 04:35 Seg Neutrophils # Man 10.1 K/mm3 (1.8-7.7) H 02/22/17 04:51 Band Neutrophils # 0.8 K/mm3 02/22/17 04:51 Lymphocytes # (Manual) 0.7 K/mm3 (1.2-5.4) L 02/22/17 04:51 Abs React Lymphs (Man) 0.0 K/mm3 02/22/17 04:51 Monocytes # (Manual) 0.9 K/mm3 (0.0-0.8) H 02/22/17 04:51 Eosinophils # (Manual) 0.9 K/mm3 (0.0-0.4) H 02/22/17 04:51 Basophils # (Manual) 0.0 K/mm3 (0.0-0.1) 02/22/17 04:51 Metamyelocytes # 0.0 K/mm3 02/22/17 04:51 Myelocytes # 0.0 K/mm3 02/22/17 04:51 Promyelocytes # 0.0 K/mm3 02/22/17 04:51 Blast Cells # 0.0 K/mm3 02/22/17 04:51 WBC Morphology Not Reportable 02/22/17 04:51 Hypersegmented Neuts Not Reportable 02/22/17 04:51 Hyposegmented Neuts Not Reportable 02/22/17 04:51 Hypogranular Neuts Not Reportable 02/22/17 04:51 Smudge Cells Not Reportable 02/22/17 04:51 Toxic Granulation Not Reportable 02/22/17 04:51 Toxic Vacuolation Not Reportable 02/22/17 04:51 Dohle Bodies Not Reportable 02/22/17 04:51 Pelger-Huet Anomaly Not Reportable 02/22/17 04:51 Theresa Rods Not Reportable 02/22/17 04:51 Platelet Estimate Consistent w auto 02/22/17 04:51 Clumped Platelets Not Reportable 02/22/17 04:51 Plt Clumps, EDTA Not Reportable 02/22/17 04:51 Large Platelets Not Reportable 02/22/17 04:51 Giant Platelets Not Reportable 02/22/17 04:51 Platelet Satelliting Not Reportable 02/22/17 04:51 Plt Morphology Comment Not Reportable 02/22/17 04:51 RBC Morphology Not Reportable 02/22/17 04:51 Dimorphic RBCs Not Reportable 02/22/17 04:51 Polychromasia Not Reportable 02/22/17 04:51 Hypochromasia Not Reportable 02/22/17 04:51 Poikilocytosis Not Reportable 02/22/17 04:51 Anisocytosis 1+ 02/22/17 04:51 Microcytosis Not Reportable 02/22/17 04:51 Macrocytosis Not Reportable 02/22/17 04:51 Spherocytes Not Reportable 02/22/17 04:51 Pappenheimer Bodies Not Reportable 02/22/17 04:51 Sickle Cells Not Reportable 02/22/17 04:51 Target Cells Not Reportable 02/22/17 04:51 Tear Drop Cells Not Reportable 02/22/17 04:51 Ovalocytes Not Reportable 02/22/17 04:51 Helmet Cells Not Reportable 02/22/17 04:51 [place] Bodies Not Reportable 02/22/17 04:51 [place] Rings Not Reportable 02/22/17 04:51 Sonja Cells Not Reportable 02/22/17 04:51 Bite Cells Not Reportable 02/22/17 04:51 Crenated Cell Not Reportable 02/22/17 04:51 Elliptocytes Not Reportable 02/22/17 04:51 Acanthocytes (Spur) Not Reportable 02/22/17 04:51 Rouleaux Not Reportable 02/22/17 04:51 Hemoglobin C Crystals Not Reportable 02/22/17 04:51 Schistocytes Not Reportable 02/22/17 04:51 Malaria parasites Not Reportable 02/22/17 04:51 [place] Bodies Not Reportable 02/22/17 04:51 Hem Pathologist Commnt No 02/22/17 04:51 Sodium 143 mmol/L (137-145) 02/23/17 04:35 Potassium 3.5 mmol/L (3.6-5.0) L 02/23/17 04:35 Chloride 105.3 mmol/L (98-107) 02/23/17 04:35 Carbon Dioxide 20 mmol/L (22-30) L 02/23/17 04:35 Anion Gap 21 mmol/L 02/23/17 04:35 BUN 61 mg/dL (9-20) H 02/23/17 04:35 Creatinine 3.7 mg/dL (0.8-1.5) H 02/23/17 04:35 Estimated GFR 20 ml/min 02/23/17 04:35 BUN/Creatinine Ratio 16 % 02/23/17 04:35 Glucose 133 mg/dL (75-100) H 02/23/17 04:35 POC Glucose 124 (70-105) H 02/23/17 06:36 Lactic Acid 2.50 mmol/L (0.7-2.0) H* 02/14/17 01:05 Calcium 8.6 mg/dL (8.4-10.2) 02/23/17 04:35 Phosphorus 5.10 mg/dL (2.5-4.5) H 02/23/17 04:35 Magnesium 2.00 mg/dL (1.7-2.3) 02/17/17 09:22 Total Bilirubin 0.40 mg/dL (0.1-1.2) 02/22/17 04:51 AST 20 units/L (5-40) 02/22/17 04:51 ALT 41 units/L (7-56) 02/22/17 04:51 Alkaline Phosphatase 99 units/L (35-129) 02/22/17 04:51 Total Creatine Kinase 198 units/L (55-170) H 02/13/17 11:06 C-Reactive Protein 6.50 mg/dL (0.00-1.30) H 02/22/17 13:36 NT-Pro-B Natriuret Pep 256.4 pg/mL (0-900) 02/15/17 05:19 Total Protein 7.1 g/dL (6.3-8.2) 02/22/17 04:51 Albumin 3.0 g/dL (3.9-5) L 02/22/17 04:51 Albumin/Globulin Ratio 0.7 % 02/22/17 04:51 Lipase 21 units/L (13-60) 02/13/17 11:06 Urine Color Yellow (Yellow) 02/13/17 15:05 Urine Turbidity Clear (Clear) 02/13/17 15:05 Urine pH 5.0 (5.0-7.0) 02/13/17 15:05 Ur Specific [place] 1.020 (1.003-1.030) 02/13/17 15:05 Urine Protein 100 mg/dl mg/dL (Negative) 02/13/17 15:05 Urine Glucose (UA) 50 mg/dL (Negative) 02/13/17 15:05 Urine Ketones Neg mg/dL (Negative) 02/13/17 15:05 Urine Blood Sm (Negative) 02/13/17 15:05 Urine Nitrite Neg (Negative) 02/13/17 15:05 Urine Bilirubin Neg (Negative) 02/13/17 15:05 Urine Urobilinogen < 2.0 mg/dL (<2.0) 02/13/17 15:05 Ur Leukocyte Esterase Neg (Negative) 02/13/17 15:05 Urine WBC (Auto) 26.0 /HPF (0.0-6.0) H 02/13/17 15:05 Urine RBC (Auto) 5.0 /HPF (0.0-6.0) 02/13/17 15:05 U Epithel Cells (Auto) 1.0 /HPF (0-13.0) 02/13/17 15:05 Urine Bacteria (Auto) 1+ /HPF (Negative) 02/13/17 15:05 Hyaline Casts 3 /LPF 02/13/17 15:05 Urine Mucus Few /HPF 02/13/17 15:05 Urine Eosinophils None seen (None Seen) 02/13/17 15:05 Urine Creatinine 111.2 mg/dL (0.1-20.0) H 02/22/17 07:20 Protein/Creatinin Ratio 0.22 02/13/17 15:05 Urine Sodium 34 mmol/L 02/13/17 15:05 Urine Urea Nitrogen 181 02/13/17 15:05 Urine Total Protein 19 mg/dL (5-11.8) H 02/22/17 07:20 Hepatitis A IgM Ab Non-reactive (NonReactive) 02/16/17 11:30 Hep Bs Antigen Non-reactive (Negative) 02/16/17 11:30 Hep B Core IgM Ab Non-reactive (NonReactive) 02/16/17 11:30 Hepatitis C Antibody Non-reactive (NonReactive) 02/16/17 11:30
[2017-02-23] MEDS: COREG PO SCH ×2 (10:18→21:50)
[2017-02-23] MEDS: HEPARIN SUB-Q SCH ×2 (10:18→21:50)
[2017-02-24] MEDS: ZOSYN/NS 2.25 GM/50ML 2.25 GM/50 ML BAG IV SCH ×2 (05:17→14:17)
[2017-02-24] MEDS: NOVOLOG SUB-Q SCH ×4 (05:17→17:29)
[2017-02-24 05:59] LABS: Basophils % (Auto) 0.6 % (0.0-1.8); Eosinophils % (Auto) 2.6 % (0.0-4.3); Hematocrit 28.8 % (35.5-45.6); Hemoglobin 9.4 gm/dl (11.8-15.2); Mean Corpuscular HGB Conc 33 % (32-34); Mean Corpuscular Volume 79 fl (84-94); Red Blood Count 3.66 M/mm3 (3.65-5.03); Red Cell Distribution Width 14.6 % (13.2-15.2); White Blood Count 12.4 K/mm3 (4.5-11.0)
[2017-02-24 06:13] LABS: Calcium 8.4 mg/dL (8.4-10.2); Chloride 104.7 mmol/L (98-107); Phosphorous 4.4 mg/dL (2.5-4.5)
[2017-02-24 06:30] LABS: Mean Corpuscular Hemoglobin 26 pg (28-32); Potassium 4.1 mmol/L (3.6-5.0)
[2017-02-24 07:22] LABS: Platelet Count 217 K/mm3 (140-440)
[2017-02-24] MEDS: RENVELA PO SCH ×3 (08:52→17:24)
[2017-02-24] MEDS: COREG PO SCH (10:20)
[2017-02-24] MEDS: HEPARIN SUB-Q SCH (10:20)
[2017-02-24] MEDS ORDERED: TRIPLE ANTIBIOTIC TP ONE (10:50)
--- NOTE | 2017-02-24 11:42 | Progress Note ---
Assessment and Plan Assessment: 1) Sepsis: better. Etiology most likely anaerobic bacteremia. CRP=6.5 2) Bacteroides bacteremia: likely real in the setting of sepsis and SB obstruction ? ischemia ? microperf. UA showed mild pleocytosis but no leukocyte esterase doubt UTI. 3) Small bowel obstruction +/- ischemia 4) LINDA Plan: -continue zosyn -upon discharge will do levaquin 750 mg po qday + flagyl 500 mg po TID total 14 days from 02/15 until 02/28 I am signing off Thank you Dr Salgado for your consultation, will follow up with you. Swetha Castellon MD Infectious Diseases Specialist [facility] ([facility]) M [phone] O [phone] Subjective Date of service: 02/24/17 Principal diagnosis: Renal failure Interval history: Feels better, wants to go home. No fever, no abd pain. Microbiology: Blood cultures: 02/13 Bacteroides thetaiotaomicro 02/15 neg Urine cultures: 02/14 neg Respiratory cultures: Current Antimicrobials: Zosyn 02/20 Objective - Exam Narrative Exam: General appearance: Alert in NAD, conversant Eyes: anicteric sclerae, moist conjunctivae; no lid-lag; PERRLA HENT: Atraumatic; oropharynx clear Neck: Trachea midline; supple, no thyromegaly or lymphadenopathy Lungs: CTA, with normal respiratory effort and no intercostal retractions CV: RRR, no murmurs Abdomen: Soft, mild tenderness Extremities: + peripheral edema Skin: Normal temperature, turgor and texture; no rash, ulcers or subcutaneous nodules Psych: Appropriate affect, alert and oriented to person, place and time. Neuro: alert and oriented x 3. Moving all extermities Lines: No CVL / PICC - Constitutional Vitals: Vital Signs Temp Pulse Resp BP Pulse Ox 98.6 F 94 H 20 117/69 96 02/24/17 07:26 02/24/17 07:26 02/24/17 07:26 02/24/17 07:26 02/24/17 07:26 Temperature -Last 24 Hours Temperature 98.6 F Temperature 99.4 F Temperature 99.9 F Temperature 99.1 F Temperature 98.6 F Temperature 98.6 F - Labs CBC & Chem 7: 02/24/17 05:31 02/24/17 05:31 Labs: Abnormal lab results 02/22/17 02/23/17 02/23/17 Range/Units Unknown 16:02 21:44 WBC (4.5-11.0) K/mm3 Hgb (11.8-15.2) gm/dl Hct (35.5-45.6) % MCV (84-94) fl MCH (28-32) pg Lymph % (Auto) (13.4-35.0) % [place] % (Auto) (0.0-7.3) % Lymph # (1.2-5.4) K/mm3 [place] # (0.0-0.8) K/mm3 Seg Neutrophils % (40.0-70.0) % Seg Neutrophils # (1.8-7.7) K/mm3 BUN (9-20) mg/dL Creatinine (0.8-1.5) mg/dL Glucose (75-100) mg/dL POC Glucose 123 H 130 H (70-105) Urine Creatinine 107.1 H (0.1-20.0) mg/dL 02/24/17 02/24/17 02/24/17 Range/Units 05:31 05:31 06:34 WBC 12.4 H (4.5-11.0) K/mm3 Hgb 9.4 L (11.8-15.2) gm/dl Hct 28.8 L (35.5-45.6) % MCV 79 L (84-94) fl MCH 26 L (28-32) pg Lymph % (Auto) 3.9 L (13.4-35.0) % [place] % (Auto) 12.3 H (0.0-7.3) % Lymph # 0.5 L (1.2-5.4) K/mm3 [place] # 1.5 H (0.0-0.8) K/mm3 Seg Neutrophils % 80.6 H (40.0-70.0) % Seg Neutrophils # 10.0 H (1.8-7.7) K/mm3 BUN 49 H (9-20) mg/dL Creatinine 3.2 H (0.8-1.5) mg/dL Glucose 123 H (75-100) mg/dL POC Glucose 127 H (70-105) Urine Creatinine (0.1-20.0) mg/dL 02/24/17 Range/Units 11:11 WBC (4.5-11.0) K/mm3 Hgb (11.8-15.2) gm/dl Hct (35.5-45.6) % MCV (84-94) fl MCH (28-32) pg Lymph % (Auto) (13.4-35.0) % [place] % (Auto) (0.0-7.3) % Lymph # (1.2-5.4) K/mm3 [place] # (0.0-0.8) K/mm3 Seg Neutrophils % (40.0-70.0) % Seg Neutrophils # (1.8-7.7) K/mm3 BUN (9-20) mg/dL Creatinine (0.8-1.5) mg/dL Glucose (75-100) mg/dL POC Glucose 136 H (70-105) Urine Creatinine (0.1-20.0) mg/dL
--- NOTE | 2017-02-24 12:30 | Progress Note ---
Assessment and Plan (1) Acute renal failure Current Visit: Yes Status: Acute Plan to address problem: s/p vasctah removal vicetne was removed this AM, i order flomax, he was can be discharged if negative retention on bladder scan, he seen Dr Marie as an outpatient, he will to f/u when discharged he will be seen in our office 1-2 weeks post discharge, office info was given to patient Renally dose medications Monitor I/O's Avoid Nephrotoxic agents (2) Hypokalemia Current Visit: Yes Status: Acute Plan to address problem: Monitor electrolytes. Stable. (3) SBO (small bowel obstruction) Current Visit: Yes Status: Acute Plan to address problem: Now on soft diet as per General Surgery (4) Hypertension Current Visit: Yes Status: Acute Plan to address problem: Blood pressures are stable on Coreg 6.25 mg po BID (5) Hypernatremia Current Visit: Yes Status: Acute Plan to address problem: Resolved Subjective Date of service: 02/24/17 Principal diagnosis: Renal failure Interval history: dami was taken out without issues Objective - Vital Signs Vital signs: Vital Signs - 12hr 02/24/17 02/24/17 04:52 07:26 Temperature 99.4 F 98.6 F Pulse Rate 86 94 H Respiratory 18 20 Rate Blood Pressure 118/74 117/69 O2 Sat by Pulse 96 96 Oximetry - General Appearance General appearance: well-developed, well-nourished, appears stated age EENT: ATNC, PERRL, mucous membranes moist Neck: no JVD, no carotid bruit Respiratory: Present: Clear to Ascultation. Absent: Rales, Ronchi Cardiology: regular, S1S2 Gastrointestinal: normoactive bowel sounds, no tenderness, no distended Integumentary: no rash, warm and dry Neurologic: no focal deficit, no asterixis, alert and oriented x3 Musculoskeletal: other (trace pitting edema in BLE) Psychiatric: mood/affect appropriate, cooperative - Lab 02/24/17 05:31 02/24/17 05:31 Most recent lab results Calcium 8.4 mg/dL (8.4-10.2) 02/24/17 05:31 Phosphorus 4.40 mg/dL (2.5-4.5) 02/24/17 05:31 Magnesium 2.00 mg/dL (1.7-2.3) 02/17/17 09:22 Urine Creatinine 107.1 mg/dL (0.1-20.0) H 02/22/17 Unknown Ur Total Protein 24 Hr 171.00 (2-200) 02/22/17 07:20 Urine Sodium 27 mmol/L 02/22/17 Unknown Urine Total Protein 19 mg/dL (5-11.8) H 02/22/17 07:20
[2017-02-24] MEDS ORDERED: FLOMAX PO SCH (13:00)
--- NOTE | 2017-02-24 16:09 | Discharge Summary ---
Providers - Providers Date of Admission: 02/13/17 17:03 Date of discharge: 02/24/17 Attending physician: MAGALY CORREA 02/13/17 12:44 Consult to Physician [CONS] Urgent Consulting Provider: JOSLYN ESTEBAN Reason For Exam: acute renal failure Place consult to:: in person Notified:: y 02/14/17 10:28 Consult to Physician [CONS] Routine Consulting Provider: LEXI AGUSTIN Reason For Exam: sbo Place consult to:: dr. agustin Notified:: office Phone number called:: Was contact made?: Yes If yes, spoke with:: que Time called:: 11:46 02/15/17 13:18 Consult to Physician [CONS] Urgent Consulting Provider: ZHEN MAY Reason For Exam: IJ VAS CATH Place consult to:: answering service Notified:: yes Phone number called:: [phone] Was contact made?: Yes If yes, spoke with:: Elidia Time called:: 13:20 02/20/17 15:12 Consult to Physician [CONS] Routine Consulting Provider: MASOUD AVELAR Reason For Exam: GN bacteremia Place consult to:: dr. thorpe Notified:: md Was contact made?: Yes If yes, spoke with:: dr. thorpe Time called:: 09:14 Primary care physician: SHRUTHI MANUEL Hospitalization Condition: Fair Hospital course: Patient is a 71 yo with hypertension, prostate cancer, diabetes mellitus type 2 , hyperlipidemia presents to ED for abdominal pains. Patient found to have acute renal failure with a serum creatnine of 7.4, as well as evidence of sepsis.. CT Abdomen/pelvis done and patient found to have partial bowel obstruction. He was admitted and evaluated by [place] and Surgeon. Dialysis was initiated. Small bowel obstruction was managed conservatively. He improved after prolonged hospital stay. Blood culture positive for bacteroides. He was evaluated by ID Physician. Patient to be discharged and he complained of urinary retention. He was discharged home with vicente catheter to follow with Urology in office. Creatinine was 3.2 on discharge. Total time spent on discharge, 36 mins. Disposition: [id number] HOME UNDER HOME HLTH - Discharge Diagnoses (1) LINDA (acute kidney injury) Status: Acute (2) ATN (acute tubular necrosis) Status: Acute (3) HLD (hyperlipidemia) Status: Acute (4) Hypernatremia Status: Acute (5) Hypertension Status: Chronic Qualifiers: Hypertension type: essential hypertension Qualified Code(s): I10 - Essential (primary) hypertension (6) SBO (small bowel obstruction) Status: Acute (7) Sepsis Status: Acute Qualifiers: Sepsis type: sepsis due to unspecified organism Qualified Code(s): A41.9 - Sepsis, unspecified organism (8) Diabetes mellitus type 2 in nonobese Status: Chronic Core Measure Documentation - Palliative Care Palliative Care/ Comfort Measures: Not Applicable - Core Measures Any of the following diagnoses?: none Exam - Physical Exam Narrative exam: GEN APPEARANCE : Not in acute distress, lying in bed HEENT: Normocephalic, Atraumatic NECK : supple, no JVD LUNGS: Clear to auscultation bilaterally, no rales, no wheeze HEART: S1 and S2 regular, no murmurs, rubs or gallop, ABD: Soft, non tender, non distended, normal bowel sounds EXT: No edema, no clubbing, no cyanosis NEURO: Awake,alert, oriented x 3, no focal signs - Constitutional Vitals: Temp Pulse Resp BP Pulse Ox 98.6 F 94 H 20 117/69 96 02/24/17 07:26 02/24/17 07:26 02/24/17 07:26 02/24/17 07:26 02/24/17 07:26 Plan Activity: advance as tolerated Diet: low fat, low cholesterol, low salt, diabetic, renal Additional Instructions: 1.Follow up with PCP in 1 week. 2.Follow up with Nephrology in 1 week. 3.Follow up with Dr. Bailon, Urology in 1-2 days. 4.Home with [place] Follow up with: MONIQUE BAILON MD [Staff Physician] - 7 Days PRIMARY CAREMD [Referring] - 3-5 Days Prescriptions: Carvedilol [Coreg] 6.25 mg PO BID #60 tablet Levofloxacin [Levaquin] 750 mg PO QDAY #5 tablet metroNIDAZOLE [Flagyl] 500 mg PO Q8HR #15 tablet Tamsulosin [Flomax] 0.4 mg PO QDAY #30 capsule
[2017-02-24 16:23] VITALS: BP 136/80
== END 2017-02-24 19:55 | disposition home or self-care (01) | DRG 871 ==
LOC: ED 10:20 → 3A 17:03
PROVIDERS: ADMIT Internal Medicine; ATTEND Internal Medicine
PROC: 02HV33Z Insertion of Infusion Device into Superior Vena Cava, Percutaneous Approach (ICD-10-PCS; principal; 2017-02-16)
PROC: B543ZZA Ultrasonography of Right Jugular Veins, Guidance (ICD-10-PCS; 2017-02-16)
PROC: 5A1D70Z Performance of Urinary Filtration, Intermittent, Less than 6 Hours Per Day (ICD-10-PCS; 2017-02-16)
PROC: B5181ZA Fluoroscopy of Superior Vena Cava using Low Osmolar Contrast, Guidance (ICD-10-PCS; 2017-02-16)
PROC: 5A1D70Z Performance of Urinary Filtration, Intermittent, Less than 6 Hours Per Day (ICD-10-PCS; 2017-02-17)
DX: A41.9 Sepsis, unspecified organism (principal); N17.0 Acute kidney failure with tubular necrosis; K56.609 Unspecified intestinal obstruction, unspecified as to partial versus complete obstruction; E87.2 Acidosis; N39.0 Urinary tract infection, site not specified; E87.0 Hyperosmolality and hypernatremia; E11.9 Type 2 diabetes mellitus without complications; E87.6 Hypokalemia; I10 Essential (primary) hypertension; E78.5 Hyperlipidemia, unspecified; Z85.46 Personal history of malignant neoplasm of prostate; Z79.899 Other long term (current) drug therapy; Z82.49 Family history of ischemic heart disease and other diseases of the circulatory system; Z83.3 Family history of diabetes mellitus
CPT/HCPCS: 36415; 36556; 71010; 74000; 74022; 74176; 77001; 80048; 80053; 80074; 81001; 82140; 82550; 82570; 82962; 83036; 83690; 83735; 83880; 84100; 84156; 84300; 84520; 85007; 85025; 85027; 86140; 87040; 87086; 89050; 93005; 93010; 96365; 96366; 99285; A6250; C1752; C9113; J0690; J1644; J1815; J2250; J2405; J2543; J3010; J3370; J3480; J7030; J7040; J7050; J7070; P9047